=== PATIENT | female | born 1930 | race Hispanic/Latino ===

== ENCOUNTER 2016-12-24 01:52 | Inpatient (IN) | payer MEDICARE, MEDICAID ==
[2016-12-24 01:53] VITALS: BMI 22.1
[2016-12-24] MEDS ORDERED: Albuterol-Ipratrop 3 mg / 0.5 (3 ml) UD ONE (02:12)
[2016-12-24] MEDS ORDERED: methylPREDNISolone 125 MG in Sodium Chloride 0.9% 50 ML IV STA (02:13)
[2016-12-24] MEDS ORDERED: Albuterol-Ipratrop 3 mg / 0.5 (3 ml) UD INH STA ×3 (02:13→02:15)
[2016-12-24] MEDS ORDERED: Magnesium Sulfate 2 gm/50 ml 2 GM/50 ML BAG IV STA (02:14)
[2016-12-24 02:34] LABS: BASO # 0.1 K/uL (0.0-0.2); BASO % 0.5 % (0.0-2.0); EOS # 0.3 K/uL (0.0-0.7); EOS % 2.5 % (0.0-4.0); HEMOGLOBIN 12.8 g/dL (12.0-16.0); LYMPH % 17.7 % (20.0-40.0); MEAN CELL VOLUME 81.7 fl (81.0-99.0); MEAN CORPUSCULAR HEMOGLOBIN 25.6 pg (27.0-31.0); MEAN CORPUSCULAR HGB CONC 31.4 g/dL (33.0-37.0); MEAN PLATELET VOLUME 7.8 fl (7.2-11.7); MONO % 8.8 % (0.0-10.0); NEUT % 70.5 % (50.0-75.0); RBC 4.98 Mil/uL (3.80-5.20); WHITE BLOOD COUNT 11.3 K/uL (4.8-10.8)
[2016-12-24 02:44] LABS: ALB/GLOB RATIO 1.4 (1.0-2.1); ALBUMIN 4.2 g/dL (3.5-5.0); CALCIUM 9.9 mg/dL (8.4-10.2)
[2016-12-24 02:56] LABS: TROPONIN I 0.023 ng/mL (0.00-0.120)
[2016-12-24] MEDS ORDERED: Nitroglycerin 2% 15 INCH/30 GM TUBE TOP STA (03:05)
--- NOTE | 2016-12-24 03:20 | ED PDOC ---
HPI: SOB/CHF/COPD Time Seen by Provider: 12/24/16 01:59 Chief Complaint (Nursing): Respiratory Distress Chief Complaint (Provider): SOB History Per: Patient History/Exam Limitations: no limitations Onset/Duration Of Symptoms: Hrs (x1), Sudden Onset Current Symptoms Are (Timing): Still Present Associated Symptoms: denies: Fever, Bloody Cough Similar Symptoms Previously: Previous COPD exacerbation episodes Additional Complaint(s): 86 year old female presents to ED with complaints of SOB and chest pain x1 hour and has a past medical history of COPD, HTN, CHF, CAD, and AFIB. Describes the pain as a tightness, and notes that her symptoms were sudden onset. (-) fever, nausea, vomiting, or diarrhea. (+) dry cough and wheezing. Confirms that her symptoms are consistent with previous episodes of COPD exacerbation. PCP: Marty Bettencourt Past Medical History Reviewed: Historical Data, Nursing Documentation, Vital Signs Vital Signs: Last Vital Signs Temp 98.9 F 12/24/16 04:00 Pulse 82 12/24/16 04:31 Resp 21 12/24/16 04:00 BP 144/82 12/24/16 04:00 Pulse Ox 100 12/24/16 04:31 - Medical History PMH: Anemia, Anxiety, Arthritis, Atrial Fibrillation, CAD, Cardia Arrhythmia, CHF, COPD, Diverticulitis, Gastritis, HTN, Hypercholesterolemia, Osteoporosis, Pneumonia, Chronic Kidney Disease (CKD stage 3) Denies: No Chronic Diseases, Asthma, Bronchitis, Emphysema, HIV, Hypothyroidism, Mitral Valve Prolapse, Peripheral Edema, Pulmonary Embolism, Rheumatoid Arthritis, Sleep Apnea - Surgical History Surgical History: Appendectomy Denies: Pacemaker - Family History Family History: States: Unknown Family Hx - Social History Current smoker - smoking cessation education provided: No Ex-Smoker (has not smoked in the last 12 months): No Alcohol: None Drugs: Denies - Home Medications Home Medications: Ambulatory Orders Medication Instructions Recorded Acetaminophen with Codeine 1 tab PO Q4H PRN 07/30/16 [Tylenol with Codeine #3 Tablet] Albuterol Sulfate [Proair Hfa] 2 puff IH Q4H PRN 07/30/16 Alprazolam [Xanax] 0.5 mg PO TID 07/30/16 Aspirin [Ecotrin] 81 mg PO DAILY 07/30/16 Bisacodyl [Dulcolax] 10 mg PO HS 07/30/16 Calcitonin,Rogers,Synthetic 1 spray KRISSY DAILY 07/30/16 [Calcitonin-Rogers] Dicyclomine [Bentyl] 20 mg PO TID #30 tab 07/30/16 Digoxin [Digitek] 125 mcg PO DAILY 07/30/16 Docusate Sodium [Dulcolax Stool 100 mg PO DAILY #10 capsule 07/30/16 Softener] Docusate [Colace] 100 mg PO BID 07/30/16 Fluticasone Propionate [Flonase] 2 spray KRISSY DAILY 07/30/16 Gluc/Bon-MSM#1/C/Александр/Juan Jose/Bor 1 cap PO DAILY 07/30/16 [Osteo Bi-Flex Caplet] Isosorbide Mononitrate [Imdur] 60 mg PO DAILY 07/30/16 Levalbuterol [Xopenex] 0.63 mg IH Q8H PRN 07/30/16 Metoprolol Succinate [Toprol XL] 25 mg PO DAILY 07/30/16 Ondansetron [Zofran Tab] 4 mg PO DAILY PRN 07/30/16 Simethicone [Gas-X Ultra Strength] 180 mg PO BID #30 capsule 07/30/16 Tiotropium [Spiriva] 18 mcg IH DAILY 07/30/16 amLODIPine [Norvasc] 10 mg PO DAILY 07/30/16 hydroCHLOROthiazide [Hydrodiuril] 25 mg PO DAILY 07/30/16 traMADol [Ultram] 50 mg PO Q8H PRN 07/30/16 - Allergies Allergies/Adverse Reactions: Allergies Allergy/AdvReac Type Severity Reaction Status Date / Time No Known Allergies Allergy Verified 07/30/16 16:17 Curb-65 Severity Score - CURB-65 Severity Score Confusion: No Respiratory Rate greater than/equal to 30: No Systolic BP <90 or Diastolic BP less than/equal 60mmHg: No Age >64: Yes Curb-65 Score: 1 Percentage 30-day mortality: 2.7% Wells Criteria for PE - Wells Criteria for Pulmonary Embolism Clinical Signs and Symptoms of DVT: No P.E is #1 Diagnosis, or Equally Likely: No Heart Rate >100: No Immobilization at least 3 days;Surgery previous 4 weeks: No Previous, objectively diagnosed PE or DVT: No Hemoptysis: No Malignancy w/treatment within 6 months, or palliative: No Total Score: 0 Review of Systems ROS Statement: Except As Marked, All Systems Reviewed And Found Negative Constitutional: Negative for: Fever Cardiovascular: Positive for: Chest Pain Respiratory: Positive for: Cough (Dry), Shortness of Breath, Wheezing Gastrointestinal: Negative for: Nausea, Vomiting, Diarrhea Physical Exam - Reviewed Nursing Documentation Reviewed: Yes Vital Signs Reviewed: Yes - Physical Exam Appears: Positive for: Non-toxic, In Acute Distress (moderate distress) Head Exam: Positive for: ATRAUMATIC Skin: Positive for: Normal Color, Warm, Dry Eye Exam: Positive for: Normal appearance ENT: Positive for: Normal ENT Inspection Neck: Positive for: Normal, Painless ROM, Supple Cardiovascular/Chest: Positive for: Regular Rate, Rhythm. Negative for: Murmur Respiratory: Positive for: Decreased Breath Sounds (bilateral decreased air entry), Rhonchi, Respiratory Distress (moderate respiratory distress), Other ( Tachypnic). Negative for: Normal Breath Sounds Gastrointestinal/Abdominal: Positive for: Normal Exam, Soft. Negative for: Tenderness Back: Positive for: Normal Inspection Extremity: Positive for: Normal ROM. Negative for: Deformity Neurologic/Psych: Positive for: Alert, Oriented. Negative for: Motor/Sensory Deficits - Laboratory Results Result Diagrams: 12/24/16 02:28 12/24/16 02:28 - ECG ECG: Positive for: Interpreted By Me, Viewed By Me ECG Rhythm: Positive for: Atrial Fibrillation, Nonspecific Changes (nonspecific ST and T wave abnormalities) Rate: 82 O2 Sat by Pulse Oximetry: 100 (On 2L O2) Pulse Ox Interpretation: Normal - Radiology X-Ray: Interpreted by Me, Viewed By Me X-Ray Interpretation: Cardiomegaly, Other (Mild pulmonary vascular congestion) - Critical Care Total Time (In Min): 30 Medical Decision Making Medical Decision Makin Initial impression: SOB and dyspnea in setting of known COPD Initial plan: * EKG * Labs * Digoxin * Trop I * CXR * Duonebs 3mL INH x3 * Magnesium sulfate 2gm in 50mL IV * Solumedrol 125 mg IV * BCx * Peak flow pre/post Tx x3 * UA 0320 * ASA 324mg PO * Lasix 40mg IV * Nitro-Bid 2% 1 inch TOP Patient shows mild improvement in symptoms. CXR: cardiomegaly with mild pulmonary vascular congestion Labs: significant for pro BNP Patient will be admitted as an inpatient in TELE under Dr. Rhoades, who is the hospitalist covering for PCP Dr. Gonzalez. Admitted for COPD and CHF exacerbation and chest pain. Scribe Attestation: Documented by Usha Prado acting as a scribe for Marcel Arredondo MD. Scribe Attestation: All medical record entries made by the Scribe were at my direction and personally dictated by me. I have reviewed the chart and agree that the record accurately reflects my personal performance of the history, physical exam, medical decision making, and the department course for this patient. I have also personally directed, reviewed, and agree with the discharge instructions and disposition. Disposition - Clinical Impression Clinical Impression: Acute respiratory distress, COPD exacerbation, CHF (congestive heart failure) - Patient ED Disposition Is Patient to be Admitted: Yes Discussed With : Jung Rhoades Doctor Will See Patient In The: Hospital - Disposition Disposition Time: 03:12 Condition: IMPROVED - Pt Status Changed To: Hospital Disposition Of: Inpatient - Admit Certification Admit to Inpatient:: After my assessment, the patient will require hospitalization for at least two midnights. This is because of the severity of symptoms shown, intensity of services needed, and/or the medical risk in this patient being treated as an outpatient.
--- NOTE | 2016-12-24 04:01 | CP.PCM.HP ---
History of Present Illness - History of Present Illness History of Present Illness: PCP: Dr Gonzalez Ginner: Dr Bettencourt Returned Item Clerk Dr Vasquez Chief Complaint: SOB HPI: 86 years old female with hx of A fib, HTN, CHF, COPD on home Oxygen comes with one hour of worsening SOB associated with a sudden tightness type of left chest pain radiating to the left shoulder at rest. She refers nonproductive cough with wheezes. no fever, nausea, vomits, diarrhea. PMH: Anemia, Anxiety, Arthritis, A Fib, CAD, Cardia Arrhythmia, CHF, COPD, Diverticulitis, Gastritis, HTN, HLD, Osteoporosis, Pneumonia, Chronic Kidney Disease (CKD stage 3) PSH: Appendectomy SH: Former smoker; No illegal drug use; No alcohol; Allergies: NKDA Present on Admission - Present on Admission Any Indicators Present on Admission: No History of DVT/PE: No History of Uncontrolled Diabetes: No Urinary Catheter: No Decubitus Ulcer Present: No Review of Systems - Constitutional Constitutional: Headache. absent: Anorexia, Chills, Fatigue, Fever - EENT Eyes: Requires Corrective Lenses. absent: Diplopia, Floaters, Sees Flashes Ears: absent: Decreased Hearing, Ear Discharge, Ear Pain, Tinnitus Nose/Mouth/Throat: absent: Epistaxis, Nasal Congestion, Nasal Discharge, Sinus Pressure, Dental Pain - Cardiovascular Cardiovascular: Chest Pain, Dyspnea. absent: Edema, Lightheadedness, Orthopnea , Palpitations - Respiratory Respiratory: Cough, Dyspnea, Wheezing - Gastrointestinal Gastrointestinal: absent: Abdominal Pain, Constipation, Diarrhea - Genitourinary Genitourinary: absent: Dysuria, Flank Pain, Hematuria, Urinary Frequency - Musculoskeletal Musculoskeletal: Arthralgias. absent: Back Pain, Numbness - Integumentary Integumentary: absent: Pruritus, Rash, Skin Ulcer, Sores, Striae, Swelling - Neurological Neurological: Headaches. absent: Confusion, Dizziness, Focal Weakness, Paresthesias - Psychiatric Psychiatric: absent: Anxiety, Depression, Panic Attacks - Endocrine Endocrine: absent: Palpitations, Polydipsia, Polyphagia, Polyuria - Hematologic/Lymphatic Hematologic: absent: Easy Bleeding, Easy Bruising Past Patient History - Infectious Disease Hx of Infectious Diseases: None - Tetanus Immunizations Tetanus Immunization: Unknown - Past Medical History & Family History Past Medical History?: Yes - Past Social History Smoking Status: Former Smoker Chewing Tobacco Use: No Cigar Use: No Alcohol: None Drugs: Denies Home Situation {Lives}: With Family - CARDIAC Hx Atrial Fibrillation: Yes Hx Cardia Arrhythmia: Yes Hx Congestive Heart Failure: Yes Hx Hypercholesterolemia: Yes Hx Hypertension: Yes Hx Mitral Valve Prolapse: No Hx Pacemaker: No Hx Peripheral Edema: No - PULMONARY Hx Asthma: No Hx Bronchitis: No Hx Chronic Obstructive Pulmonary Disease (COPD): Yes Hx Emphysema: No Hx Pneumonia: Yes Hx Pulmonary Embolism: No Hx Sleep Apnea: No - NEUROLOGICAL Hx Neurological Disorder: No - HEENT Hx HEENT Problems: Yes Hx Cataracts: Yes - RENAL Hx Chronic Kidney Disease: Yes (CKD stage 3) - ENDOCRINE/METABOLIC Hx Hypothyroidism: No - HEMATOLOGICAL/ONCOLOGICAL Hx Anemia: Yes Hx Human Immunodeficiency Virus (HIV): No - INTEGUMENTARY Hx Dermatological Problems: No - MUSCULOSKELETAL/RHEUMATOLOGICAL Hx Arthritis: Yes Hx Osteoporosis: Yes Hx Rheumatoid Arthritis: No - GASTROINTESTINAL Hx Diverticulitis: Yes Hx Gastritis: Yes - GENITOURINARY/GYNECOLOGICAL Hx Genitourinary Disorders: Yes - PSYCHIATRIC Hx Anxiety: Yes - SURGICAL HISTORY Hx Appendectomy: Yes - ANESTHESIA Hx Anesthesia: Yes Hx Anesthesia Reactions: No Hx Malignant Hyperthermia: No Meds Allergies/Adverse Reactions: Allergies Allergy/AdvReac Type Severity Reaction Status Date / Time No Known Allergies Allergy Verified 07/30/16 16:17 Physical Exam - Constitutional Appears: In Acute Distress - Head Exam Head Exam: ATRAUMATIC, NORMAL INSPECTION, NORMOCEPHALIC - Eye Exam Eye Exam: EOMI, Normal appearance Pupil Exam: NORMAL ACCOMODATION, PERRL - ENT Exam ENT Exam: Mucous Membranes Moist, Normal Exam, Normal External Ear Exam, Normal Oropharynx - Neck Exam Neck exam: Positive for: Normal Inspection, Tenderness. Negative for: Full Rom , Lymphadenopathy - Respiratory Exam Respiratory Exam: Rales. absent: Rhonchi, Wheezes Additional comments: Mild inspiratory rales at both bases - Cardiovascular Exam Cardiovascular Exam: Irregular Rhythm, +S1, +S2. absent: Gallop, JVD - GI/Abdominal Exam GI & Abdominal Exam: Normal Bowel Sounds, Soft. absent: Mass, Organomegaly - Rectal Exam Rectal Exam: Deferred - Extremities Exam Extremities exam: Positive for: normal inspection Additional comments: Pain to the left shoulder on flexion and rotation. - Back Exam Back exam: NORMAL INSPECTION. absent: CVA tenderness (L), CVA tenderness (R) - Neurological Exam Neurological exam: Alert, CN II-XII Intact, Oriented x3, Reflexes Normal - Psychiatric Exam Psychiatric exam: Normal Affect, Normal Mood - Skin Skin Exam: Dry, Intact, Normal Color, Warm Results - Vital Signs Recent Vital Signs: Last Vital Signs Temp 99.0 F 12/24/16 02:02 Pulse 85 12/24/16 02:02 Resp 25 H 12/24/16 03:03 BP 129/61 12/24/16 03:26 Pulse Ox 100 12/24/16 03:46 - Labs Result Diagrams: 12/24/16 02:28 12/24/16 02:28 - EKG Data EKG comments: A Fib 82/min - Imaging and Cardiology Chest x-ray Status: Image reviewed by me Additional comment: No infiltrate Assessment & Plan - Assessment and Plan (Free Text) Assessment: #. COPD Exacerbation #. CHF #. Chest Pain #. Arthritis #. A Fib #. GERD #. Leukocytosis Plan: 86 years old female with hx of A fib, HTN, CHF, COPD on home Oxygen comes with one hour of worsening SOB associated with a sudden tightness type of left chest pain radiating to the left shoulder at rest. She refers nonproductive cough with wheezes. #. Acute on chronicCOPD Exacerbation - Consult Dr Sweeney - Aminata-Medrol given in ED - Solumedrol 60mg IV Q6hrs - Duoneb Q4hrs - O2 at 2L/min via N/c - Rocephin emperic #. Chronic CHF Systolic and Diastolic dysfunction - Consult Dr vasquez - Lasix - Metoprolol -isosorbide Mononitrate #. Chest Pain - Cardiology on consult - Serial Troponin - Serial EKG - ASA - Nitroglycerine #. Arthritis to the left shoulder - tramadol #. A Fib rate controlled - Metoprolol - digoxin #. Over grown toe nails - Consult Podiatry #. GERD - Pepcid #. DVT Prophylaxis with Lovenox #. Code Status Full - Date & Time Date: 12/24/16 Time: 04:01
[2016-12-24] MEDS: Albuterol-Ipratrop 3 mg / 0.5 (3 ml) UD INH SCH ×2 (07:47→11:30)
[2016-12-24] MEDS ORDERED: Simethicone 80 mg Chewtab PO PRN (09:00)
--- NOTE | 2016-12-24 09:29 | RAD ---
HISTORY: Chest pain COMPARISON: No prior. FINDINGS: LUNGS: The lungs are hyperinflated and there is peribronchial thickening with chronic changes in both lungs. No focal consolidation. PLEURA: No significant pleural effusion identified, no pneumothorax apparent. CARDIOVASCULAR: Normal. OSSEOUS STRUCTURES: No significant abnormalities. VISUALIZED UPPER ABDOMEN: Normal. OTHER FINDINGS: None. IMPRESSION: No active pulmonary disease. COPD.
--- NOTE | 2016-12-24 09:31 | CP.PCM.CON ---
History of Present Illness - History of Present Illness History of Present Illness: THE PATIENT IS AN 86 YEAR OLD FEMALE WITH A HISTORY OF COPD WITH A HEAVY CIGARETTE SMOKING HISTORY, CAD, CARDIOMYOPATHY WITH A LVEF OF ~ 20% WITH CHF IN THE PAST, CHRONIC ATRIAL FIBRILLATION, SEVERE CHEST WALL SYNDROME, HYPERTENSION , HYPERLIPIDEMIA AND STAGE 3 CRF. SHE STATES THAT SHE WAS SOB AND FELT WEAK FOR A FEW DAYS APPLE THINNER BUT DENIES FEVERS OR CHILLS OR PRODUCTIVE SPUTUM. SHE HAD ATYPICAL CHEST PAIN LAST EVENING AND WENT TO THE ER AND WAS FOUND TO HAVE COPD EXACERBATION AND BELIEVE TO HAVE CHF ALSO SO SHE WAS ADMITTED. CARDIOLOGY WAS ASKED TO SEE AND FOLLOW HER. SHE DENIES ANY TYPICAL CHEST PAIN. Past Patient History - Infectious Disease Hx of Infectious Diseases: None - Tetanus Immunizations Tetanus Immunization: Unknown - Past Medical History & Family History Past Medical History?: Yes - Past Social History Smoking Status: Former Smoker Chewing Tobacco Use: No Cigar Use: No Alcohol: None Drugs: Denies Home Situation {Lives}: With Family - CARDIAC Hx Atrial Fibrillation: Yes Hx Cardia Arrhythmia: Yes Hx Congestive Heart Failure: Yes Hx Hypercholesterolemia: Yes Hx Hypertension: Yes Hx Mitral Valve Prolapse: No Hx Pacemaker: No Hx Peripheral Edema: No - PULMONARY Hx Asthma: No Hx Bronchitis: No Hx Chronic Obstructive Pulmonary Disease (COPD): Yes Hx Emphysema: No Hx Pneumonia: Yes Hx Pulmonary Embolism: No Hx Sleep Apnea: No - NEUROLOGICAL Hx Neurological Disorder: No - HEENT Hx HEENT Problems: Yes Hx Cataracts: Yes - RENAL Hx Chronic Kidney Disease: Yes (CKD stage 3) - ENDOCRINE/METABOLIC Hx Hypothyroidism: No - HEMATOLOGICAL/ONCOLOGICAL Hx Anemia: Yes Hx Human Immunodeficiency Virus (HIV): No - INTEGUMENTARY Hx Dermatological Problems: No - MUSCULOSKELETAL/RHEUMATOLOGICAL Hx Arthritis: Yes Hx Osteoporosis: Yes Hx Rheumatoid Arthritis: No - GASTROINTESTINAL Hx Diverticulitis: Yes Hx Gastritis: Yes - GENITOURINARY/GYNECOLOGICAL Hx Genitourinary Disorders: Yes - PSYCHIATRIC Hx Anxiety: Yes - SURGICAL HISTORY Hx Appendectomy: Yes - ANESTHESIA Hx Anesthesia: Yes Hx Anesthesia Reactions: No Hx Malignant Hyperthermia: No Meds Allergies/Adverse Reactions: Allergies Allergy/AdvReac Type Severity Reaction Status Date / Time No Known Allergies Allergy Verified 07/30/16 16:17 - Medications Medications: Current Medications Acetaminophen/Codeine Phosphate (Tylenol/Codeine 300 Mg/30 Mg) 1 tab PO Q4H PRN PRN Reason: Pain, moderate (4-7) Albuterol/Ipratropium (Duoneb 3 Mg/0.5 Mg (3 Ml) Ud) 3 ml INH Q4H JAQUI Last Admin: 12/24/16 07:47 Dose: 3 ml Alprazolam (Xanax) 0.5 mg PO TID [facility] Amlodipine Besylate (Norvasc) 10 mg PO DAILY [facility] Aspirin (Ecotrin) 81 mg PO DAILY JAQUI Bisacodyl (Dulcolax) 10 mg PO HS JAQUI Digoxin (Lanoxin) 0.125 mg PO DAILY [facility] Docusate Sodium (Colace) 100 mg PO BID [facility] Enoxaparin Sodium (Lovenox) 40 mg SC DAILY [facility] PRN Reason: Protocol Famotidine (Pepcid) 20 mg PO DAILY [facility] Fluticasone Propionate (Flonase) 2 spr KRISSY DAILY [facility] Furosemide (Lasix) 20 mg IVP BID [facility] Home Med (Simethicone [Gas-X Ultra Strength]) 180 mg PO BID [facility] Methylprednisolone 60 mg/ (Sodium Chloride) 50 mls @ 100 mls/hr IVPB Q6 [facility] Ceftriaxone Sodium 1 gm/ (Sodium Chloride) 100 mls @ 100 mls/hr IVPB DAILY [facility] Isosorbide Mononitrate (Imdur) 60 mg PO DAILY [facility] Metoprolol Succinate (Toprol Xl) 25 mg PO DAILY [facility] Ondansetron HCl (Zofran Tab) 4 mg PO DAILY PRN PRN Reason: Nausea/Vomiting Tramadol HCl (Ultram) 50 mg PO Q8H PRN PRN Reason: Pain, severe (8-10) Last Admin: 12/24/16 05:53 Dose: 50 mg Physical Exam - Respiratory Exam Respiratory Exam: Clear to Auscultation Bilateral - Cardiovascular Exam Cardiovascular Exam: Irregular Rhythm, +S1, +S2 - Extremities Exam Extremities exam: Positive for: normal inspection - Additional Findings Additional findings: EKG ATRIAL FIBRILLATION TROPONIN NORMAL X 2 PBNP 2210 CXR CHRONIC CHANGES(NOT CONGESTION IN MY OPINION) Results - Vital Signs Recent Vital Signs: Last Vital Signs Temp 98.4 F 12/24/16 08:00 Pulse 93 H 12/24/16 08:00 Resp 18 12/24/16 08:00 BP 153/69 H 12/24/16 08:00 Pulse Ox 93 L 12/24/16 08:00 - Labs Result Diagrams: 12/24/16 02:28 07/07/17 02:28 Labs: Laboratory Results - last 24 hr 12/24/16 08:20 Troponin I 0.0270 Assessment & Plan - Assessment and Plan (Free Text) Assessment: COPD EXACERBATION THE PATIENT IS NOT IN CHF IN MY OPINION-HER LUNGS ARE CLEAR, THE CXR SHOWS CHRONIC CHANGES AND THE PBNP IS LOW FOR HER(SHE OFTEN HAS MUCH MORE ELEVATED PBNP LEVELS) CHEST WALL SYNDROME CAD CHRONIC ATRIAL FIBRILLATION HYPERTENSION Plan: CONTINUE O2, METOPROLOL, NITRATES, DIGOXIN, FUROSEMIDE, AMLODIPINE, ASPIRIN, LOVENOX, ANTIBIOTICS, BRONCHODILATORS NOTE: THE PATIENT IS NOT ON CHRONIC ANTICOAGULATION SHE IS A FALL RISK PULMONARY TO SEE
[2016-12-24] MEDS: Enoxaparin 40 mg Syringe SC SCH (09:48)
[2016-12-24] MEDS: Metoprolol Succinate 25 mg XL Tab PO SCH (09:49)
[2016-12-24] MEDS: Digoxin 125 mcg (0.125 mg) Tab PO SCH (09:49)
[2016-12-24] MEDS: Acetaminophen-Codeine 300/30 mg Tab PO PRN ×2 (09:57→22:06)
[2016-12-24] MEDS: methylPREDNISolone 60 MG in Sodium Chloride 0.9% 50 ML IVPB SCH ×4 (10:44→22:10)
--- NOTE | 2016-12-24 14:27 | CP.PCM.CON ---
History of Present Illness - History of Present Illness History of Present Illness: 86 YR OLD FEMALE WHO IS WELL KNOWN TO ME FROM PRIOR ADMISSIONS.SHE IS REFERRED FOR PULMONARY EVALUATION BECAUSE OF CHEST DISCOMFORT AND SHORTNESS OF BREATH X 1 DAY SHE DENIES FEVER/CHILLS HAS MINIMAL SPUTUM PRODUCTION HX OF COPD,CHRONIC ATRIAL FIBRILLATION AND CARDIOMYOPATHY FORMER [employer] Past Patient History - Infectious Disease Hx of Infectious Diseases: None - Tetanus Immunizations Tetanus Immunization: Unknown - Past Medical History & Family History Past Medical History?: Yes - Past Social History Smoking Status: Former Smoker Chewing Tobacco Use: No Cigar Use: No Alcohol: None Drugs: Denies Home Situation {Lives}: With Family - CARDIAC Hx Atrial Fibrillation: Yes Hx Cardia Arrhythmia: Yes Hx Congestive Heart Failure: Yes Hx Hypercholesterolemia: Yes Hx Hypertension: Yes Hx Mitral Valve Prolapse: No Hx Pacemaker: No Hx Peripheral Edema: No - PULMONARY Hx Asthma: No Hx Bronchitis: No Hx Chronic Obstructive Pulmonary Disease (COPD): Yes Hx Emphysema: No Hx Pneumonia: Yes Hx Pulmonary Embolism: No Hx Sleep Apnea: No - NEUROLOGICAL Hx Neurological Disorder: No - HEENT Hx HEENT Problems: Yes Hx Cataracts: Yes - RENAL Hx Chronic Kidney Disease: Yes (CKD stage 3) - ENDOCRINE/METABOLIC Hx Hypothyroidism: No - HEMATOLOGICAL/ONCOLOGICAL Hx Anemia: Yes Hx Human Immunodeficiency Virus (HIV): No - INTEGUMENTARY Hx Dermatological Problems: No - MUSCULOSKELETAL/RHEUMATOLOGICAL Hx Arthritis: Yes Hx Osteoporosis: Yes Hx Rheumatoid Arthritis: No - GASTROINTESTINAL Hx Diverticulitis: Yes Hx Gastritis: Yes - GENITOURINARY/GYNECOLOGICAL Hx Genitourinary Disorders: Yes - PSYCHIATRIC Hx Anxiety: Yes - SURGICAL HISTORY Hx Appendectomy: Yes - ANESTHESIA Hx Anesthesia: Yes Hx Anesthesia Reactions: No Hx Malignant Hyperthermia: No Meds Allergies/Adverse Reactions: Allergies Allergy/AdvReac Type Severity Reaction Status Date / Time No Known Allergies Allergy Verified 07/30/16 16:17 - Medications Medications: Current Medications Acetaminophen/Codeine Phosphate (Tylenol/Codeine 300 Mg/30 Mg) 1 tab PO Q4H PRN PRN Reason: Pain, moderate (4-7) Last Admin: 12/24/16 09:57 Dose: 1 tab Albuterol/Ipratropium (Duoneb 3 Mg/0.5 Mg (3 Ml) Ud) 3 ml INH Q4H JAQUI Last Admin: 12/24/16 11:30 Dose: 3 ml Alprazolam (Xanax) 0.5 mg PO TID [facility] Last Admin: 12/24/16 09:57 Dose: 0.5 mg Amlodipine Besylate (Norvasc) 10 mg PO DAILY [facility] Last Admin: 12/24/16 09:48 Dose: 10 mg Aspirin (Ecotrin) 81 mg PO DAILY [facility] Last Admin: 12/24/16 09:49 Dose: 81 mg Bisacodyl (Dulcolax) 10 mg PO HS [facility] Digoxin (Lanoxin) 0.125 mg PO DAILY [facility] Last Admin: 12/24/16 09:49 Dose: 0.125 mg Docusate Sodium (Colace) 100 mg PO BID [facility] Last Admin: 12/24/16 09:52 Dose: 100 mg Enoxaparin Sodium (Lovenox) 40 mg SC DAILY [facility] PRN Reason: Protocol Last Admin: 12/24/16 09:48 Dose: 40 mg Famotidine (Pepcid) 20 mg PO DAILY [facility] Last Admin: 12/24/16 09:57 Dose: 20 mg Fluticasone Propionate (Flonase) 2 spr KRISSY DAILY [facility] Last Admin: 12/24/16 10:10 Dose: 2 spr Furosemide (Lasix) 20 mg IVP BID [facility] Last Admin: 12/24/16 09:57 Dose: 20 mg Home Med (Simethicone [Gas-X Ultra Strength]) 180 mg PO BID [facility] Methylprednisolone 60 mg/ (Sodium Chloride) 50 mls @ 100 mls/hr IVPB Q6 [facility] Ceftriaxone Sodium 1 gm/ (Sodium Chloride) 100 mls @ 100 mls/hr IVPB DAILY [facility] Isosorbide Mononitrate (Imdur) 60 mg PO DAILY [facility] Last Admin: 12/24/16 09:49 Dose: 60 mg Metoprolol Succinate (Toprol Xl) 25 mg PO DAILY [facility] Last Admin: 12/24/16 09:49 Dose: 25 mg Ondansetron HCl (Zofran Tab) 4 mg PO DAILY PRN PRN Reason: Nausea/Vomiting Last Admin: 12/24/16 09:50 Dose: 4 mg Tramadol HCl (Ultram) 50 mg PO Q8H PRN PRN Reason: Pain, severe (8-10) Last Admin: 12/24/16 05:53 Dose: 50 mg Physical Exam - Constitutional Appears: Chronically Ill - Head Exam Head Exam: ATRAUMATIC, NORMAL INSPECTION, NORMOCEPHALIC - Eye Exam Eye Exam: EOMI, Normal appearance, PERRL Pupil Exam: NORMAL ACCOMODATION, PERRL - ENT Exam ENT Exam: Mucous Membranes Moist, Normal Exam - Neck Exam Neck exam: Positive for: Normal Inspection - Respiratory Exam Respiratory Exam: Prolonged Expiratory Phase, Rales, Rhonchi - Cardiovascular Exam Cardiovascular Exam: Irregular Rhythm - GI/Abdominal Exam GI & Abdominal Exam: Normal Bowel Sounds, Soft. absent: Tenderness - Rectal Exam Rectal Exam: NORMAL INSPECTION - Extremities Exam Extremities exam: Positive for: normal inspection - Back Exam Back exam: NORMAL INSPECTION - Neurological Exam Neurological exam: Alert, CN II-XII Intact, Normal Gait, Oriented x3, Reflexes Normal - Psychiatric Exam Psychiatric exam: Normal Affect, Normal Mood - Skin Skin Exam: Dry, Intact, Normal Color, Warm Results - Vital Signs Recent Vital Signs: Last Vital Signs Temp 97.7 F 12/24/16 12:00 Pulse 76 12/24/16 12:00 Resp 18 12/24/16 12:00 BP 97/57 L 12/24/16 12:00 Pulse Ox 100 12/24/16 12:00 - Labs Result Diagrams: 12/24/16 02:28 12/24/16 02:28 Labs: Laboratory Results - last 24 hr 12/24/16 08:20 Troponin I 0.0270 Assessment & Plan - Assessment and Plan (Free Text) Assessment: ACUTE EXAC OF COPD CHEST PAIN ARRYTHMIAS Plan: AEROSOLIZED BRONCHODILATORS O2 RX IV STEROIDS MONITOR IN TELE WILL FOLLOW WITH YOU
[2016-12-24] MEDS ORDERED: Sodium Chloride 3% for Inhalation 4 ML VIAL.NEB IH PRN (14:34)
[2016-12-24] MEDS ORDERED: Levalbuterol 1.25 MG/3 ML Inhal Soln UD INH PRN (14:35)
[2016-12-24] MEDS: Lidocaine 5% Patch TD SCH (15:52)
--- NOTE | 2016-12-24 18:24 | CARD ---
APPROVED REPORT EKG Measurement Heart [id number] <Conclusion> Atrial fibrillation with premature ventricular or aberrantly conducted complexes Left axis deviation Nonspecific intraventricular block Abnormal QRS-T angle, consider primary T wave abnormality Abnormal ECG
[2016-12-24] MEDS: Bisacodyl 5mg EC Tab PO SCH (22:11)
[2016-12-25] MEDS: Acetaminophen-Codeine 300/30 mg Tab PO PRN ×2 (02:15→09:01)
[2016-12-25] MEDS: methylPREDNISolone 60 MG in Sodium Chloride 0.9% 50 ML IVPB SCH ×4 (03:56→21:14)
[2016-12-25 07:54] LABS: HEMOGLOBIN 12.1 g/dL (12.0-16.0); MEAN CORPUSCULAR HEMOGLOBIN 25.7 pg (27.0-31.0); MEAN CORPUSCULAR HGB CONC 31.4 g/dL (33.0-37.0); RBC 4.72 Mil/uL (3.80-5.20); RED CELL DISTRIBUTION WIDTH 15.6 % (11.5-14.5); WHITE BLOOD COUNT 11.2 K/uL (4.8-10.8)
[2016-12-25 08:16] LABS: CALCIUM 9.5 mg/dL (8.4-10.2)
[2016-12-25] MEDS: Digoxin 125 mcg (0.125 mg) Tab PO SCH (08:54)
[2016-12-25] MEDS: Metoprolol Succinate 25 mg XL Tab PO SCH (08:54)
[2016-12-25] MEDS: Enoxaparin 40 mg Syringe SC SCH (08:56)
[2016-12-25] MEDS: Lidocaine 5% Patch TD SCH (08:56)
--- NOTE | 2016-12-25 10:00 | CP.PCM.PN ---
Subjective - Date & Time of Evaluation Date of Evaluation: 12/25/16 Time of Evaluation: 09:59 - Subjective Subjective: C/O INABILITY TO SLEEP BECAUSE OF LACK OF CPAP FEELS WEAK Objective - Vital Signs/Intake and Output Vital Signs (last 24 hours): Temp Pulse Resp BP Pulse Ox 98.5 F 75 18 135/57 L 99 12/25/16 08:00 12/25/16 08:54 12/25/16 08:00 12/25/16 09:02 12/25/16 08:00 - Medications Medications: Current Medications Acetaminophen/Codeine Phosphate (Tylenol/Codeine 300 Mg/30 Mg) 1 tab PO Q4H PRN PRN Reason: Pain, moderate (4-7) Last Admin: 12/25/16 09:01 Dose: 1 tab Alprazolam (Xanax) 0.5 mg PO TID [facility] Last Admin: 12/25/16 09:01 Dose: 0.5 mg Amlodipine Besylate (Norvasc) 10 mg PO DAILY [facility] Last Admin: 12/25/16 08:51 Dose: 10 mg Aspirin (Ecotrin) 81 mg PO DAILY [facility] Last Admin: 12/25/16 08:53 Dose: 81 mg Bisacodyl (Dulcolax) 10 mg PO HS [facility] Last Admin: 12/24/16 22:11 Dose: 10 mg Digoxin (Lanoxin) 0.125 mg PO DAILY [facility] Last Admin: 12/25/16 08:54 Dose: 0.125 mg Docusate Sodium (Colace) 100 mg PO BID [facility] Last Admin: 12/25/16 08:53 Dose: 100 mg Enoxaparin Sodium (Lovenox) 40 mg SC DAILY [facility] PRN Reason: Protocol Last Admin: 12/25/16 08:56 Dose: 40 mg Famotidine (Pepcid) 20 mg PO DAILY [facility] Last Admin: 12/25/16 08:54 Dose: 20 mg Fluticasone Propionate (Flonase) 2 spr KRISSY DAILY [facility] Last Admin: 12/25/16 08:55 Dose: 2 spr Furosemide (Lasix) 20 mg IVP BID [facility] Last Admin: 12/25/16 09:02 Dose: 20 mg Methylprednisolone 60 mg/ (Sodium Chloride) 50 mls @ 100 mls/hr IVPB Q6 [facility] Last Admin: 12/25/16 09:02 Dose: 100 mls/hr Ceftriaxone Sodium 1 gm/ (Sodium Chloride) 100 mls @ 100 mls/hr IVPB DAILY [facility] Last Admin: 12/25/16 08:55 Dose: 100 mls/hr Isosorbide Mononitrate (Imdur) 60 mg PO DAILY [facility] Last Admin: 12/25/16 08:56 Dose: 60 mg Lactulose (Enulose) 20 gm PO DAILY PRN PRN Reason: Constipation Levalbuterol HCl (Xopenex) 1.25 mg INH RQ8 PRN PRN Reason: Shortness of Breath Lidocaine (Lidoderm) 1 ea TD DAILY [facility] Last Admin: 12/25/16 08:56 Dose: 1 ea Metoprolol Succinate (Toprol Xl) 25 mg PO DAILY [facility] Last Admin: 12/25/16 08:54 Dose: 25 mg Ondansetron HCl (Zofran Inj) 4 mg IVP Q6 PRN PRN Reason: Nausea/Vomiting Simethicone (Mylicon Chew Tab) 80 mg PO BID PRN PRN Reason: Flatulence Tramadol HCl (Ultram) 50 mg PO Q8H PRN PRN Reason: Pain, severe (8-10) Last Admin: 12/25/16 00:00 Dose: 50 mg - Labs Labs: 12/25/16 06:30 12/25/16 06:30 - Constitutional Appears: Chronically Ill - Head Exam Head Exam: ATRAUMATIC, NORMAL INSPECTION, NORMOCEPHALIC - Eye Exam Eye Exam: EOMI, Normal appearance, PERRL Pupil Exam: NORMAL ACCOMODATION, PERRL - ENT Exam ENT Exam: Mucous Membranes Moist, Normal Exam - Neck Exam Neck Exam: Full ROM, Normal Inspection. absent: Lymphadenopathy - Respiratory Exam Respiratory Exam: Decreased Breath Sounds, NORMAL BREATHING PATTERN - Cardiovascular Exam Cardiovascular Exam: REGULAR RHYTHM, +S1, +S2. absent: Murmur - GI/Abdominal Exam GI & Abdominal Exam: Soft, Normal Bowel Sounds. absent: Tenderness - Rectal Exam Rectal Exam: NORMAL INSPECTION - Extremities Exam Extremities Exam: Full ROM, Normal Capillary Refill, Normal Inspection. absent : Joint Swelling, Pedal Edema - Back Exam Back Exam: NORMAL INSPECTION - Neurological Exam Neurological Exam: Alert, Awake, CN II-XII Intact, Normal Gait, Oriented x3 - Psychiatric Exam Psychiatric exam: Normal Affect, Normal Mood - Skin Skin Exam: Dry, Intact, Normal Color, Warm Assessment and Plan - Assessment and Plan (Free Text) Assessment: COPD EXAC Plan: CPAP ORDERED
[2016-12-25] MEDS ORDERED: Simethicone 80 mg Chewtab PO PRN (10:15)
--- NOTE | 2016-12-25 15:16 | CP.PCM.PN ---
Subjective - Date & Time of Evaluation Date of Evaluation: 12/25/16 Time of Evaluation: 13:30 - Subjective Subjective: NO CHEST PAIN STILL SOB Objective - Vital Signs/Intake and Output Vital Signs (last 24 hours): Temp Pulse Resp BP Pulse Ox 97.4 F L 73 18 109/63 98 12/25/16 12:00 12/25/16 12:00 12/25/16 12:00 12/25/16 12:00 12/25/16 12:00 - Medications Medications: Current Medications Acetaminophen/Codeine Phosphate (Tylenol/Codeine 300 Mg/30 Mg) 1 tab PO Q4H PRN PRN Reason: Pain, moderate (4-7) Last Admin: 12/25/16 09:01 Dose: 1 tab Alprazolam (Xanax) 0.5 mg PO TID [facility] Last Admin: 12/25/16 12:22 Dose: 0.5 mg Amlodipine Besylate (Norvasc) 10 mg PO DAILY [facility] Last Admin: 12/25/16 08:51 Dose: 10 mg Aspirin (Ecotrin) 81 mg PO DAILY [facility] Last Admin: 12/25/16 08:53 Dose: 81 mg Bisacodyl (Dulcolax) 10 mg PO HS [facility] Last Admin: 12/24/16 22:11 Dose: 10 mg Digoxin (Lanoxin) 0.125 mg PO DAILY [facility] Last Admin: 12/25/16 08:54 Dose: 0.125 mg Docusate Sodium (Colace) 100 mg PO BID [facility] Last Admin: 12/25/16 08:53 Dose: 100 mg Enoxaparin Sodium (Lovenox) 40 mg SC DAILY [facility] PRN Reason: Protocol Last Admin: 12/25/16 08:56 Dose: 40 mg Famotidine (Pepcid) 20 mg PO DAILY [facility] Last Admin: 12/25/16 08:54 Dose: 20 mg Fluticasone Propionate (Flonase) 2 spr KRISSY DAILY [facility] Last Admin: 12/25/16 08:55 Dose: 2 spr Furosemide (Lasix) 20 mg IVP BID [facility] Last Admin: 12/25/16 09:02 Dose: 20 mg Methylprednisolone 60 mg/ (Sodium Chloride) 50 mls @ 100 mls/hr IVPB Q6 [facility] Last Admin: 12/25/16 09:02 Dose: 100 mls/hr Ceftriaxone Sodium 1 gm/ (Sodium Chloride) 100 mls @ 100 mls/hr IVPB DAILY [facility] Last Admin: 12/25/16 08:55 Dose: 100 mls/hr Isosorbide Mononitrate (Imdur) 60 mg PO DAILY [facility] Last Admin: 12/25/16 08:56 Dose: 60 mg Lactulose (Enulose) 20 gm PO DAILY PRN PRN Reason: Constipation Levalbuterol HCl (Xopenex) 1.25 mg INH RQ8 PRN PRN Reason: Shortness of Breath Lidocaine (Lidoderm) 1 ea TD DAILY [facility] Last Admin: 12/25/16 08:56 Dose: 1 ea Metoprolol Succinate (Toprol Xl) 25 mg PO DAILY [facility] Last Admin: 12/25/16 08:54 Dose: 25 mg Ondansetron HCl (Zofran Inj) 4 mg IVP Q6 PRN PRN Reason: Nausea/Vomiting Simethicone (Mylicon Chew Tab) 80 mg PO BID PRN PRN Reason: Flatulence Tramadol HCl (Ultram) 50 mg PO Q8H PRN PRN Reason: Pain, severe (8-10) Last Admin: 12/25/16 12:28 Dose: 50 mg - Labs Labs: 12/25/16 06:30 12/25/16 06:30 - Respiratory Exam Respiratory Exam: Decreased Breath Sounds - Cardiovascular Exam Cardiovascular Exam: Irregular Rhythm, +S1, +S2 - Extremities Exam Extremities Exam: Normal Inspection - Additional Findings Additional findings: 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 ANTIBIOTICS, STEROIDS, BRONCHODILATORS CPAP ORDERED BY PULMONARY
--- NOTE | 2016-12-25 15:41 | CP.PCM.PN ---
Subjective - Date & Time of Evaluation Date of Evaluation: 12/25/16 Time of Evaluation: 11:30 - Subjective Subjective: Patient seen and examined bedside. Feeling weak and tired. Was not able to sleep last night because did not have her CPAP machine.States that all her body hurts.Still with dyspnea at rest and prolonged expiratory phase while on 2 L O2 via NC complains of headache Objective - Vital Signs/Intake and Output Vital Signs (last 24 hours): Temp Pulse Resp BP Pulse Ox 97.4 F L 73 18 109/63 98 12/25/16 12:00 12/25/16 12:00 12/25/16 12:00 12/25/16 12:00 12/25/16 12:00 - Medications Medications: Current Medications Acetaminophen/Codeine Phosphate (Tylenol/Codeine 300 Mg/30 Mg) 1 tab PO Q4H PRN PRN Reason: Pain, moderate (4-7) Last Admin: 12/25/16 09:01 Dose: 1 tab Alprazolam (Xanax) 0.5 mg PO TID [facility] Last Admin: 12/25/16 12:22 Dose: 0.5 mg Amlodipine Besylate (Norvasc) 10 mg PO DAILY [facility] Last Admin: 12/25/16 08:51 Dose: 10 mg Aspirin (Ecotrin) 81 mg PO DAILY [facility] Last Admin: 12/25/16 08:53 Dose: 81 mg Bisacodyl (Dulcolax) 10 mg PO HS [facility] Last Admin: 12/24/16 22:11 Dose: 10 mg Digoxin (Lanoxin) 0.125 mg PO DAILY [facility] Last Admin: 12/25/16 08:54 Dose: 0.125 mg Docusate Sodium (Colace) 100 mg PO BID [facility] Last Admin: 12/25/16 08:53 Dose: 100 mg Enoxaparin Sodium (Lovenox) 40 mg SC DAILY [facility] PRN Reason: Protocol Last Admin: 12/25/16 08:56 Dose: 40 mg Famotidine (Pepcid) 20 mg PO DAILY [facility] Last Admin: 12/25/16 08:54 Dose: 20 mg Fluticasone Propionate (Flonase) 2 spr KRISSY DAILY [facility] Last Admin: 12/25/16 08:55 Dose: 2 spr Furosemide (Lasix) 20 mg IVP BID [facility] Last Admin: 12/25/16 09:02 Dose: 20 mg Methylprednisolone 60 mg/ (Sodium Chloride) 50 mls @ 100 mls/hr IVPB Q6 [facility] Last Admin: 12/25/16 09:02 Dose: 100 mls/hr Ceftriaxone Sodium 1 gm/ (Sodium Chloride) 100 mls @ 100 mls/hr IVPB DAILY [facility] Last Admin: 12/25/16 08:55 Dose: 100 mls/hr Isosorbide Mononitrate (Imdur) 60 mg PO DAILY [facility] Last Admin: 12/25/16 08:56 Dose: 60 mg Lactulose (Enulose) 20 gm PO DAILY PRN PRN Reason: Constipation Levalbuterol HCl (Xopenex) 1.25 mg INH RQ8 PRN PRN Reason: Shortness of Breath Lidocaine (Lidoderm) 1 ea TD DAILY [facility] Last Admin: 12/25/16 08:56 Dose: 1 ea Metoprolol Succinate (Toprol Xl) 25 mg PO DAILY [facility] Last Admin: 12/25/16 08:54 Dose: 25 mg Ondansetron HCl (Zofran Inj) 4 mg IVP Q6 PRN PRN Reason: Nausea/Vomiting Simethicone (Mylicon Chew Tab) 80 mg PO BID PRN PRN Reason: Flatulence Tramadol HCl (Ultram) 50 mg PO Q8H PRN PRN Reason: Pain, severe (8-10) Last Admin: 12/25/16 12:28 Dose: 50 mg - Labs Labs: 12/25/16 06:30 12/25/16 06:30 - Constitutional Appears: Non-toxic - Head Exam Head Exam: ATRAUMATIC, NORMOCEPHALIC - Eye Exam Eye Exam: EOMI, PERRL Pupil Exam: NORMAL ACCOMODATION - ENT Exam ENT Exam: Mucous Membranes Moist, Normal Exam - Neck Exam Neck Exam: Normal Inspection - Respiratory Exam Respiratory Exam: Accessory Muscle Use, Prolonged Expiratory Phase, Rhonchi, Respiratory Distress. absent: Wheezes - Cardiovascular Exam Cardiovascular Exam: Irregular Rhythm, +S1, +S2. absent: JVD - GI/Abdominal Exam GI & Abdominal Exam: Normal Bowel Sounds. absent: Distended, Guarding, Tenderness, Rebound - Rectal Exam Rectal Exam: Deferred - Extremities Exam Extremities Exam: Normal Capillary Refill, Normal Inspection. absent: Pedal Edema - Back Exam Back Exam: NORMAL INSPECTION - Neurological Exam Neurological Exam: Alert, Awake, Oriented x3 - Psychiatric Exam Psychiatric exam: Anxious - Skin Skin Exam: Dry, Pallor, Warm Assessment and Plan - Assessment and Plan (Free Text) Assessment: 86 year old female with history of A fib, HTN, CHF, COPD on home Oxygen comes with one hour of worsening SOB associated with a sudden tightness type of left chest pain radiating to the left shoulder at rest. She refers nonproductive cough with wheezes. She was admitted with COPD exacerbation and chest pain in telemetry for close monitoring. Pulmonary and cardiology were consulted . 1. Acute on chronic COPD Exacerbation improving slowly pulmonary consult with Dr. Gonzalez appreciated with dyspnea at rest Continue Solumderol tappering dose Continue Duoneb Q4hrs O2 at 2L/min via N/c and CPAP ordered continue Rocephin emperically 2. Chronic CHF Systolic and Diastolic dysfunction Consult with Dr Basurto appreciated continue Lasix,Metoprolol,isosorbide Mononitrate 3. Chest Pain- ACS ruled out Cardiology on consult Serial Troponins were negative Continue ASA Nitroglycerine PRN 4. 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 A Fib rate controlled on Metoprolol and digoxin 6. HTN controlled 7. Over grown toe nails Podiatry consult 8. GERD Pepcid 9. DVT Prophylaxis Lovenox
[2016-12-25] MEDS: Bisacodyl 5mg EC Tab PO SCH (21:14)
[2016-12-26] MEDS: methylPREDNISolone 60 MG in Sodium Chloride 0.9% 50 ML IVPB SCH ×2 (03:48→09:10)
[2016-12-26 07:28] LABS: HEMOGLOBIN 13.9 g/dL (12.0-16.0); MEAN CELL VOLUME 81.9 fl (81.0-99.0); MEAN CORPUSCULAR HEMOGLOBIN 25.7 pg (27.0-31.0); MEAN CORPUSCULAR HGB CONC 31.4 g/dL (33.0-37.0); RBC 5.4 Mil/uL (3.80-5.20); RED CELL DISTRIBUTION WIDTH 15.5 % (11.5-14.5); WHITE BLOOD COUNT 15.6 K/uL (4.8-10.8)
[2016-12-26 07:49] LABS: CALCIUM 9.7 mg/dL (8.4-10.2)
[2016-12-26] MEDS: Metoprolol Succinate 25 mg XL Tab PO SCH (08:52)
[2016-12-26] MEDS: Enoxaparin 40 mg Syringe SC SCH (08:53)
[2016-12-26] MEDS: Digoxin 125 mcg (0.125 mg) Tab PO SCH (08:53)
[2016-12-26] MEDS: Lidocaine 5% Patch TD SCH (08:54)
--- NOTE | 2016-12-26 10:55 | CP.PCM.PN ---
Subjective - Date & Time of Evaluation Date of Evaluation: 12/26/16 Time of Evaluation: 10:54 - Subjective Subjective: SOB IMPROVING ANXIOUS SLEPT WELL WITH BIPAP Objective - Vital Signs/Intake and Output Vital Signs (last 24 hours): Temp Pulse Resp BP Pulse Ox 98.3 F 70 18 141/77 100 12/26/16 08:00 12/26/16 08:52 12/26/16 08:00 12/26/16 08:52 12/26/16 08:00 - Medications Medications: Current Medications Acetaminophen/Codeine Phosphate (Tylenol/Codeine 300 Mg/30 Mg) 1 tab PO Q4H PRN PRN Reason: Pain, moderate (4-7) Last Admin: 12/25/16 09:01 Dose: 1 tab Alprazolam (Xanax) 0.5 mg PO TID [facility] Last Admin: 12/26/16 09:10 Dose: 0.5 mg Amlodipine Besylate (Norvasc) 10 mg PO DAILY [facility] Last Admin: 12/26/16 08:52 Dose: 10 mg Aspirin (Ecotrin) 81 mg PO DAILY [facility] Last Admin: 12/26/16 08:53 Dose: 81 mg Bisacodyl (Dulcolax) 10 mg PO HS [facility] Last Admin: 12/25/16 21:14 Dose: 10 mg Digoxin (Lanoxin) 0.125 mg PO DAILY [facility] Last Admin: 12/26/16 08:53 Dose: 0.125 mg Docusate Sodium (Colace) 100 mg PO BID [facility] Last Admin: 12/26/16 08:51 Dose: 100 mg Enoxaparin Sodium (Lovenox) 40 mg SC DAILY [facility] PRN Reason: Protocol Last Admin: 12/26/16 08:53 Dose: 40 mg Famotidine (Pepcid) 20 mg PO DAILY [facility] Last Admin: 12/26/16 08:53 Dose: 20 mg Fluticasone Propionate (Flonase) 2 spr KRISSY DAILY [facility] Last Admin: 12/26/16 08:52 Dose: 2 spr Furosemide (Lasix) 20 mg IVP BID [facility] Last Admin: 12/26/16 08:49 Dose: 20 mg Methylprednisolone 60 mg/ (Sodium Chloride) 50 mls @ 100 mls/hr IVPB Q6 [facility] Last Admin: 12/26/16 09:10 Dose: 100 mls/hr Ceftriaxone Sodium 1 gm/ (Sodium Chloride) 100 mls @ 100 mls/hr IVPB DAILY [facility] Last Admin: 12/26/16 08:50 Dose: 100 mls/hr Isosorbide Mononitrate (Imdur) 60 mg PO DAILY [facility] Last Admin: 12/26/16 08:53 Dose: 60 mg Lactulose (Enulose) 20 gm PO DAILY PRN PRN Reason: Constipation Levalbuterol HCl (Xopenex) 1.25 mg INH RQ8 PRN PRN Reason: Shortness of Breath Lidocaine (Lidoderm) 1 ea TD DAILY [facility] Last Admin: 12/26/16 08:54 Dose: 1 ea Metoprolol Succinate (Toprol Xl) 25 mg PO DAILY [facility] Last Admin: 12/26/16 08:52 Dose: 25 mg Ondansetron HCl (Zofran Inj) 4 mg IVP Q6 PRN PRN Reason: Nausea/Vomiting Simethicone (Mylicon Chew Tab) 80 mg PO BID PRN PRN Reason: Flatulence Tramadol HCl (Ultram) 50 mg PO Q8H PRN PRN Reason: Pain, severe (8-10) Last Admin: 12/26/16 08:49 Dose: 50 mg - Labs Labs: 12/26/16 06:30 12/26/16 06:30 - Constitutional Appears: Chronically Ill - Head Exam Head Exam: ATRAUMATIC, NORMAL INSPECTION, NORMOCEPHALIC - Eye Exam Eye Exam: EOMI, Normal appearance, PERRL Pupil Exam: NORMAL ACCOMODATION, PERRL - ENT Exam ENT Exam: Mucous Membranes Moist, Normal Exam - Neck Exam Neck Exam: Full ROM, Normal Inspection. absent: Lymphadenopathy - Respiratory Exam Respiratory Exam: Decreased Breath Sounds, Prolonged Expiratory Phase, NORMAL BREATHING PATTERN - Cardiovascular Exam Cardiovascular Exam: REGULAR RHYTHM, +S1, +S2. absent: Murmur - GI/Abdominal Exam GI & Abdominal Exam: Soft, Normal Bowel Sounds. absent: Tenderness - Rectal Exam Rectal Exam: NORMAL INSPECTION - Extremities Exam Extremities Exam: Full ROM, Normal Capillary Refill, Normal Inspection. absent : Joint Swelling, Pedal Edema - Back Exam Back Exam: NORMAL INSPECTION - Neurological Exam Neurological Exam: Alert, Awake, CN II-XII Intact, Normal Gait, Oriented x3 - Psychiatric Exam Psychiatric exam: Normal Affect, Normal Mood - Skin Skin Exam: Dry, Intact, Normal Color, Warm Assessment and Plan - Assessment and Plan (Free Text) Assessment: COPD Plan: CONTINUE PRESENT RX
[2016-12-26] MEDS: Acetaminophen-Codeine 300/30 mg Tab PO PRN (11:09)
--- NOTE | 2016-12-26 11:41 | CP.PCM.PN ---
Subjective - Date & Time of Evaluation Date of Evaluation: 12/26/16 Time of Evaluation: 11:30 - Subjective Subjective: Patient seen and evaluated bedside.Still complaining of feeling weak , tired with body aches and pains. Was able to sleep overnight. Feeling nauseated this AM Still with dyspnea at rest while on O2 via NC Objective - Vital Signs/Intake and Output Vital Signs (last 24 hours): Temp Pulse Resp BP Pulse Ox 98.3 F 70 18 141/77 100 12/26/16 08:00 12/26/16 09:00 12/26/16 08:00 12/26/16 08:52 12/26/16 08:00 - Medications Medications: Current Medications Acetaminophen/Codeine Phosphate (Tylenol/Codeine 300 Mg/30 Mg) 1 tab PO Q4H PRN PRN Reason: Pain, moderate (4-7) Last Admin: 12/26/16 11:09 Dose: 1 tab Alprazolam (Xanax) 0.5 mg PO TID [facility] Last Admin: 12/26/16 09:10 Dose: 0.5 mg Amlodipine Besylate (Norvasc) 10 mg PO DAILY [facility] Last Admin: 12/26/16 08:52 Dose: 10 mg Aspirin (Ecotrin) 81 mg PO DAILY [facility] Last Admin: 12/26/16 08:53 Dose: 81 mg Bisacodyl (Dulcolax) 10 mg PO HS [facility] Last Admin: 12/25/16 21:14 Dose: 10 mg Digoxin (Lanoxin) 0.125 mg PO DAILY [facility] Last Admin: 12/26/16 08:53 Dose: 0.125 mg Docusate Sodium (Colace) 100 mg PO BID [facility] Last Admin: 12/26/16 08:51 Dose: 100 mg Enoxaparin Sodium (Lovenox) 40 mg SC DAILY [facility] PRN Reason: Protocol Last Admin: 12/26/16 08:53 Dose: 40 mg Famotidine (Pepcid) 20 mg PO DAILY [facility] Last Admin: 12/26/16 08:53 Dose: 20 mg Fluticasone Propionate (Flonase) 2 spr KRISSY DAILY [facility] Last Admin: 12/26/16 08:52 Dose: 2 spr Furosemide (Lasix) 20 mg IVP BID [facility] Last Admin: 12/26/16 08:49 Dose: 20 mg Methylprednisolone 60 mg/ (Sodium Chloride) 50 mls @ 100 mls/hr IVPB Q6 [facility] Last Admin: 12/26/16 09:10 Dose: 100 mls/hr Ceftriaxone Sodium 1 gm/ (Sodium Chloride) 100 mls @ 100 mls/hr IVPB DAILY [facility] Last Admin: 12/26/16 08:50 Dose: 100 mls/hr Isosorbide Mononitrate (Imdur) 60 mg PO DAILY [facility] Last Admin: 12/26/16 08:53 Dose: 60 mg Lactulose (Enulose) 20 gm PO DAILY PRN PRN Reason: Constipation Levalbuterol HCl (Xopenex) 1.25 mg INH RQ8 PRN PRN Reason: Shortness of Breath Lidocaine (Lidoderm) 1 ea TD DAILY [facility] Last Admin: 12/26/16 08:54 Dose: 1 ea Metoprolol Succinate (Toprol Xl) 25 mg PO DAILY [facility] Last Admin: 12/26/16 08:52 Dose: 25 mg Ondansetron HCl (Zofran Inj) 4 mg IVP Q6 PRN PRN Reason: Nausea/Vomiting Simethicone (Mylicon Chew Tab) 80 mg PO BID PRN PRN Reason: Flatulence Tramadol HCl (Ultram) 50 mg PO Q8H PRN PRN Reason: Pain, severe (8-10) Last Admin: 12/26/16 08:49 Dose: 50 mg - Labs Labs: 12/26/16 06:30 12/26/16 06:30 - Constitutional Appears: Non-toxic, No Acute Distress, Other (anxious) - Head Exam Head Exam: ATRAUMATIC, NORMOCEPHALIC - Eye Exam Eye Exam: EOMI, Normal appearance, PERRL Pupil Exam: NORMAL ACCOMODATION - ENT Exam ENT Exam: Mucous Membranes Moist, Normal Exam - Neck Exam Neck Exam: Full ROM, Normal Inspection - Respiratory Exam Respiratory Exam: Accessory Muscle Use, Prolonged Expiratory Phase. absent: Rhonchi, Wheezes - Cardiovascular Exam Cardiovascular Exam: REGULAR RHYTHM, RRR, +S1, +S2. absent: JVD - GI/Abdominal Exam GI & Abdominal Exam: Soft, Normal Bowel Sounds. absent: Distended, Guarding, Tenderness, Rebound - Rectal Exam Rectal Exam: Deferred - Extremities Exam Extremities Exam: Full ROM, Normal Capillary Refill, Normal Inspection. absent : Calf Tenderness, Pedal Edema - Back Exam Back Exam: NORMAL INSPECTION - Neurological Exam Neurological Exam: Alert, Awake, CN II-XII Intact, Oriented x3 - Psychiatric Exam Psychiatric exam: Anxious - Skin Skin Exam: Dry, Pallor, Warm Assessment and Plan - Assessment and Plan (Free Text) Assessment: 86 year old female with history of A fib, HTN, CHF, COPD on home Oxygen , anxiety comes with one hour of worsening SOB associated with a sudden tightness type of left chest pain radiating to the left shoulder at rest. She refers nonproductive cough with wheezes. She was admitted with COPD exacerbation and chest pain in telemetry for close monitoring. Pulmonary and cardiology were consulted . Still feeling weak and with dyspnea at rest 1. Acute on chronic COPD Exacerbation improving slowly pulmonary consult with Dr. Gonzalez appreciated with dyspnea at rest Continue Solumderol tappering dose, 30 mg IV Q12 today Continue Duoneb Q4hrs O2 at 2L/min via N/c and Bipap bedtime continue Rocephin empirically 2. Chronic CHF Systolic and Diastolic dysfunction Consult with Dr Basurto appreciated continue Lasix,Metoprolol,isosorbide Mononitrate 3. Chest Pain- ACS ruled out Cardiology on consult Serial Troponins were negative Continue ASA Nitroglycerine PRN 4. 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 A Fib rate controlled on Metoprolol and digoxin 6. HTN controlled 7. Over grown toe nails Podiatry consult 8. GERD Pepcid 9. DVT Prophylaxis Lovenox
--- NOTE | 2016-12-26 14:35 | CP.PCM.PN ---
Subjective - Date & Time of Evaluation Date of Evaluation: 12/26/16 Time of Evaluation: 13:30 - Subjective Subjective: NO CHEST PAIN BREATHING BETTER TODAY Objective - Vital Signs/Intake and Output Vital Signs (last 24 hours): Temp Pulse Resp BP Pulse Ox 97.8 F 75 18 124/72 98 12/26/16 13:00 12/26/16 13:00 12/26/16 13:00 12/26/16 13:00 12/26/16 13:00 - Medications Medications: Current Medications Acetaminophen/Codeine Phosphate (Tylenol/Codeine 300 Mg/30 Mg) 1 tab PO Q4H PRN PRN Reason: Pain, moderate (4-7) Last Admin: 12/26/16 11:09 Dose: 1 tab Alprazolam (Xanax) 0.5 mg PO TID [facility] Last Admin: 12/26/16 12:46 Dose: 0.5 mg Amlodipine Besylate (Norvasc) 10 mg PO DAILY [facility] Last Admin: 12/26/16 08:52 Dose: 10 mg Aspirin (Ecotrin) 81 mg PO DAILY [facility] Last Admin: 12/26/16 08:53 Dose: 81 mg Bisacodyl (Dulcolax) 10 mg PO HS [facility] Last Admin: 12/25/16 21:14 Dose: 10 mg Digoxin (Lanoxin) 0.125 mg PO DAILY [facility] Last Admin: 12/26/16 08:53 Dose: 0.125 mg Docusate Sodium (Colace) 100 mg PO BID [facility] Last Admin: 12/26/16 08:51 Dose: 100 mg Enoxaparin Sodium (Lovenox) 40 mg SC DAILY [facility] PRN Reason: Protocol Last Admin: 12/26/16 08:53 Dose: 40 mg Famotidine (Pepcid) 20 mg PO DAILY [facility] Last Admin: 12/26/16 08:53 Dose: 20 mg Fluticasone Propionate (Flonase) 2 spr KRISSY DAILY [facility] Last Admin: 12/26/16 08:52 Dose: 2 spr Furosemide (Lasix) 40 mg PO DAILY [facility] Ceftriaxone Sodium 1 gm/ (Sodium Chloride) 100 mls @ 100 mls/hr IVPB DAILY [facility] Last Admin: 12/26/16 08:50 Dose: 100 mls/hr Methylprednisolone 30 mg/ (Sodium Chloride) 50 mls @ 100 mls/hr IV Q12 [facility] Isosorbide Mononitrate (Imdur) 60 mg PO DAILY [facility] Last Admin: 12/26/16 08:53 Dose: 60 mg Lactulose (Enulose) 20 gm PO DAILY PRN PRN Reason: Constipation Levalbuterol HCl (Xopenex) 1.25 mg INH RQ8 PRN PRN Reason: Shortness of Breath Lidocaine (Lidoderm) 1 ea TD DAILY [facility] Last Admin: 12/26/16 08:54 Dose: 1 ea Metoprolol Succinate (Toprol Xl) 25 mg PO DAILY [facility] Last Admin: 12/26/16 08:52 Dose: 25 mg Ondansetron HCl (Zofran Inj) 4 mg IVP Q6 PRN PRN Reason: Nausea/Vomiting Simethicone (Mylicon Chew Tab) 80 mg PO BID PRN PRN Reason: Flatulence Tramadol HCl (Ultram) 50 mg PO Q8H PRN PRN Reason: Pain, severe (8-10) Last Admin: 12/26/16 08:49 Dose: 50 mg - Labs Labs: 12/26/16 06:30 12/26/16 06:30 - Respiratory Exam Respiratory Exam: Decreased Breath Sounds, Clear to Ausculation Bilateral - Cardiovascular Exam Cardiovascular Exam: Irregular Rhythm, +S1, +S2 - Extremities Exam Extremities Exam: Normal Inspection - Additional Findings Additional findings: SET UP AND CHARGER ATRIAL FIBRILLATION Assessment and Plan - Assessment and Plan (Free Text) Assessment: COPD EXACERBATION CAD CHRONIC ATRIAL FIBRILLATION HYPERTENSION Plan: CONTINUE ASPIRIN, LOVENOX, NITRATES, METOPROLOL, DIGOXIN, FUROSEMIDE, AMLODIPINE , STEROIDS, BRONCHODILATORS FOR DISCHARGE IN AM IF STABLE
[2016-12-26] MEDS: Bisacodyl 5mg EC Tab PO SCH (21:44)
[2016-12-26] MEDS: methylPREDNISolone 30 MG in Sodium Chloride 0.9% 50 ML IV SCH (21:46)
[2016-12-27 05:08] VITALS: O2SAT 99
[2016-12-27 06:39] LABS: HEMOGLOBIN 13.1 g/dL (12.0-16.0); MEAN CELL VOLUME 81.9 fl (81.0-99.0); MEAN CORPUSCULAR HEMOGLOBIN 26.2 pg (27.0-31.0); MEAN CORPUSCULAR HGB CONC 31.9 g/dL (33.0-37.0); RBC 4.99 Mil/uL (3.80-5.20); WHITE BLOOD COUNT 12.6 K/uL (4.8-10.8)
[2016-12-27 07:32] LABS: CALCIUM 9.2 mg/dL (8.4-10.2)
--- NOTE | 2016-12-27 08:10 | CP.PCM.DIS ---
Provider - Provider Date of Admission: 12/24/16 03:12 Attending physician: Jung Rhoades Primary care physician: Dr Bettencourt Consults: Cardio: Dr Basurto Pulm: Dr Gonzalez Time Spent in preparation of Discharge (in minutes): 25 Diagnosis - Discharge Diagnosis (1) COPD exacerbation Status: Acute (2) Chronic combined systolic and diastolic CHF (congestive heart failure) Status: Chronic (3) Acute kidney injury superimposed on CKD Status: Acute (4) Acute hypercapnic respiratory failure Status: Acute (5) Chest wall pain Status: Acute Priority: High Hospital Course - Lab Results Lab Results: Most Recent Lab Values WBC 12.6 K/uL (4.8-10.8) H 12/27/16 05:00 RBC 4.99 Mil/uL (3.80-5.20) 12/27/16 05:00 Hgb 13.1 g/dL (12.0-16.0) 12/27/16 05:00 Hct 40.9 % (34.0-47.0) 12/27/16 05:00 MCV 81.9 fl (81.0-99.0) 12/27/16 05:00 MCH 26.2 pg (27.0-31.0) L 12/27/16 05:00 MCHC 31.9 g/dL (33.0-37.0) L 12/27/16 05:00 RDW 15.0 % (11.5-14.5) H 12/27/16 05:00 Plt Count 247 K/uL (130-400) 12/27/16 05:00 MPV 7.8 fl (7.2-11.7) 12/24/16 02:28 Neut % (Auto) 70.5 % (50.0-75.0) 12/24/16 02:28 Lymph % (Auto) 17.7 % (20.0-40.0) L 12/24/16 02:28 Jessamine % (Auto) 8.8 % (0.0-10.0) 12/24/16 02:28 Eos % (Auto) 2.5 % (0.0-4.0) 12/24/16 02:28 Baso % (Auto) 0.5 % (0.0-2.0) 12/24/16 02:28 Neut # 8.0 K/uL (1.8-7.0) H 12/24/16 02:28 Lymph # 2.0 K/uL (1.0-4.3) 12/24/16 02:28 Jessamine # 1.0 K/uL (0.0-0.8) H 12/24/16 02:28 Eos # 0.3 K/uL (0.0-0.7) 12/24/16 02:28 Baso # 0.1 K/uL (0.0-0.2) 12/24/16 02:28 Sodium 136 mmol/l (132-148) 12/27/16 05:00 Potassium 3.8 MMOL/L (3.6-5.0) 12/27/16 05:00 Chloride 86 mmol/L (98-107) L 12/27/16 05:00 Carbon Dioxide 43 mmol/L (22-30) H* 12/27/16 05:00 Anion Gap 11 (10-20) 12/27/16 05:00 BUN 49 mg/dl (7-17) H 12/27/16 05:00 Creatinine 1.3 mg/dL (0.7-1.2) H 12/27/16 05:00 Est GFR ( Amer) 47 12/27/16 05:00 Est GFR (Non-Af Amer) 39 12/27/16 05:00 Random Glucose 126 mg/dL (65-105) H 12/27/16 05:00 Calcium 9.2 mg/dL (8.4-10.2) 12/27/16 05:00 Total Bilirubin 0.4 mg/dl (0.2-1.3) 12/24/16 02:28 AST 26 U/L (14-36) 12/24/16 02:28 ALT 40 U/L (9-52) 12/24/16 02:28 Alkaline Phosphatase 64 U/L (38-126) 12/24/16 02:28 Troponin I 0.0230 ng/mL (0.00-0.120) 12/24/16 14:15 NT-Pro-B Natriuret Pep 2210 pg/ml (0-900) H 12/24/16 02:28 Total Protein 7.3 G/DL (6.3-8.2) 12/24/16 02:28 Albumin 4.2 g/dL (3.5-5.0) 12/24/16 02:28 Globulin 3.1 gm/dL (2.2-3.9) 12/24/16 02:28 Albumin/Globulin Ratio 1.4 (1.0-2.1) 12/24/16 02:28 Digoxin 1.1 ng/mL (0.8-2.0) 12/24/16 02:28 - Hospital Course Hospital Course: 86 year old female with history of A fib, HTN, CHF, Anxiety, and COPD on home Oxygen comes with one hour of worsening SOB associated with a sudden tightness type of left chest pain radiating to the left shoulder at rest. She refers nonproductive cough with wheezes. She was admitted with COPD exacerbation and chest pain in telemetry for close monitoring. Pulmonary and cardiology were consulted . 1. Acute on chronic COPD Exacerbation improving pulmonary consult with Dr. Gonzalez IV Solumedrol tapered sellers- will d/c home on PO Medrol dose pack Continue Duoneb Q4hrs O2 at 2L/min via N/c and Bipap bedtime Rocephin empirically given 2. Chronic CHF Systolic and Diastolic dysfunction Consult with Dr Basurto appreciated continue Lasix,Metoprolol,isosorbide Mononitrate 3. Chest Pain- ACS ruled out , Chest Wall and shoulder Pain Cardiology on consult Serial Troponins were negative Continue ASA Nitroglycerine PRN 4. 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 A Fib rate controlled on Metoprolol and digoxin 6. HTN controlled 7. Over grown toe nails Podiatry consulted 8. GERD Pepcid 9. TOMA on CKD -prob sec to Lasix ,change to PO Lasix DVT Prophylaxis Lovenox Discharge Exam - Head Exam Head Exam: ATRAUMATIC, NORMAL INSPECTION, NORMOCEPHALIC - Eye Exam Eye Exam: EOMI, Normal appearance Pupil Exam: NORMAL ACCOMODATION - ENT Exam ENT Exam: Mucous Membranes Moist, Normal External Ear Exam - Neck Exam Neck exam: Full Rom - Respiratory Exam Respiratory Exam: Decreased Breath Sounds, Rhonchi. absent: Wheezes, Respiratory Distress - Cardiovascular Exam Cardiovascular Exam: REGULAR RHYTHM, +S1, +S2 - GI/Abdominal Exam GI & Abdominal Exam: Normal Bowel Sounds, Soft. absent: Tenderness - Extremities Exam Extremities exam: normal capillary refill, pedal pulses present - Back Exam Back exam: absent: CVA tenderness (L), CVA tenderness (R) - Neurological Exam Neurological exam: Alert, CN II-XII Intact, Oriented x3, Reflexes Normal - Psychiatric Exam Psychiatric exam: Normal Affect, Normal Mood - Skin Skin Exam: Dry, Normal Color, Warm Discharge Plan - Discharge Medications Prescriptions: Methylprednisolone [Medrol Dose Pack (21 tabs)] 4 mg PO DAILY #21 tab traMADol [Ultram] 50 mg PO Q8H PRN #15 tab PRN Reason: Pain, Moderate (4-7) - Follow Up Plan Condition: IMPROVED Disposition: HOME/ ROUTINE Additional Instructions: ff up with Dr Bettencourt in 2 wks ff up with Dr Basurto in 1-2 wks Home Care
--- NOTE | 2016-12-27 08:25 | CP.PCM.PN ---
Subjective - Date & Time of Evaluation Date of Evaluation: 12/27/16 Time of Evaluation: 08:25 - Subjective Subjective: FEELS BETTER WANTS TO GO HOME TODAY SOB IMPROVED Objective - Vital Signs/Intake and Output Vital Signs (last 24 hours): Temp Pulse Resp BP Pulse Ox 98 F 85 18 139/80 99 12/27/16 05:00 12/27/16 05:00 12/27/16 05:00 12/27/16 05:00 12/27/16 05:00 - Medications Medications: Current Medications Acetaminophen/Codeine Phosphate (Tylenol/Codeine 300 Mg/30 Mg) 1 tab PO Q4H PRN PRN Reason: Pain, moderate (4-7) Last Admin: 12/26/16 11:09 Dose: 1 tab Alprazolam (Xanax) 0.5 mg PO TID [facility] Last Admin: 12/26/16 16:36 Dose: 0.5 mg Amlodipine Besylate (Norvasc) 10 mg PO DAILY [facility] Last Admin: 12/26/16 08:52 Dose: 10 mg Aspirin (Ecotrin) 81 mg PO DAILY [facility] Last Admin: 12/26/16 08:53 Dose: 81 mg Bisacodyl (Dulcolax) 10 mg PO HS [facility] Last Admin: 12/26/16 21:44 Dose: 10 mg Digoxin (Lanoxin) 0.125 mg PO DAILY [facility] Last Admin: 12/26/16 08:53 Dose: 0.125 mg Docusate Sodium (Colace) 100 mg PO BID [facility] Last Admin: 12/26/16 16:37 Dose: 100 mg Enoxaparin Sodium (Lovenox) 40 mg SC DAILY [facility] PRN Reason: Protocol Last Admin: 12/26/16 08:53 Dose: 40 mg Famotidine (Pepcid) 20 mg PO DAILY [facility] Last Admin: 12/26/16 08:53 Dose: 20 mg Fluticasone Propionate (Flonase) 2 spr KRISSY DAILY [facility] Last Admin: 12/26/16 08:52 Dose: 2 spr Furosemide (Lasix) 40 mg PO DAILY [facility] Ceftriaxone Sodium 1 gm/ (Sodium Chloride) 100 mls @ 100 mls/hr IVPB DAILY [facility] Last Admin: 12/26/16 08:50 Dose: 100 mls/hr Methylprednisolone 30 mg/ (Sodium Chloride) 50 mls @ 100 mls/hr IV Q12 [facility] Last Admin: 12/26/16 21:46 Dose: 100 mls/hr Isosorbide Mononitrate (Imdur) 60 mg PO DAILY [facility] Last Admin: 12/26/16 08:53 Dose: 60 mg Lactulose (Enulose) 20 gm PO DAILY PRN PRN Reason: Constipation Levalbuterol HCl (Xopenex) 1.25 mg INH RQ8 PRN PRN Reason: Shortness of Breath Lidocaine (Lidoderm) 1 ea TD DAILY [facility] Last Admin: 12/26/16 08:54 Dose: 1 ea Metoprolol Succinate (Toprol Xl) 25 mg PO DAILY [facility] Last Admin: 12/26/16 08:52 Dose: 25 mg Ondansetron HCl (Zofran Inj) 4 mg IVP Q6 PRN PRN Reason: Nausea/Vomiting Simethicone (Mylicon Chew Tab) 80 mg PO BID PRN PRN Reason: Flatulence Tramadol HCl (Ultram) 50 mg PO Q8H PRN PRN Reason: Pain, severe (8-10) Last Admin: 12/27/16 00:11 Dose: 50 mg - Labs Labs: 12/27/16 05:00 12/27/16 05:00 - Constitutional Appears: No Acute Distress - Head Exam Head Exam: ATRAUMATIC, NORMAL INSPECTION, NORMOCEPHALIC - Eye Exam Eye Exam: EOMI, Normal appearance, PERRL Pupil Exam: NORMAL ACCOMODATION, PERRL - ENT Exam ENT Exam: Mucous Membranes Moist, Normal Exam - Neck Exam Neck Exam: Full ROM, Normal Inspection. absent: Lymphadenopathy - Respiratory Exam Respiratory Exam: Decreased Breath Sounds, Prolonged Expiratory Phase, NORMAL BREATHING PATTERN - Cardiovascular Exam Cardiovascular Exam: REGULAR RHYTHM, +S1, +S2. absent: Murmur - GI/Abdominal Exam GI & Abdominal Exam: Soft, Normal Bowel Sounds. absent: Tenderness - Rectal Exam Rectal Exam: NORMAL INSPECTION - Extremities Exam Extremities Exam: Full ROM, Normal Capillary Refill, Normal Inspection. absent : Joint Swelling, Pedal Edema - Back Exam Back Exam: NORMAL INSPECTION - Neurological Exam Neurological Exam: Alert, Awake, CN II-XII Intact, Normal Gait, Oriented x3 - Psychiatric Exam Psychiatric exam: Normal Affect, Normal Mood - Skin Skin Exam: Dry, Intact, Normal Color, Warm Assessment and Plan - Assessment and Plan (Free Text) Assessment: END STAGE COPD ANXIETY Plan: OK TO D/C FROM [facility] FOLLOW UP WITH DR IVEY WILL SIGN OFF CASE
[2016-12-27] MEDS: Enoxaparin 40 mg Syringe SC SCH (09:42)
[2016-12-27] MEDS: Metoprolol Succinate 25 mg XL Tab PO SCH (09:44)
[2016-12-27] MEDS: Lidocaine 5% Patch TD SCH (09:45)
[2016-12-27] MEDS: Digoxin 125 mcg (0.125 mg) Tab PO SCH (09:46)
[2016-12-27] MEDS: methylPREDNISolone 30 MG in Sodium Chloride 0.9% 50 ML IV SCH (09:47)
[2016-12-27 09:49] VITALS: PULSE 63
--- NOTE | 2016-12-27 09:56 | CP.PCM.PN ---
Subjective - Date & Time of Evaluation Date of Evaluation: 12/27/16 Time of Evaluation: 08:15 - Subjective Subjective: NO CHEST PAIN BREATHING BETTER Objective - Vital Signs/Intake and Output Vital Signs (last 24 hours): Temp Pulse Resp BP Pulse Ox 98.1 F 63 18 148/88 99 12/27/16 08:41 12/27/16 09:44 12/27/16 08:41 12/27/16 09:46 12/27/16 08:41 - Medications Medications: Current Medications Acetaminophen/Codeine Phosphate (Tylenol/Codeine 300 Mg/30 Mg) 1 tab PO Q4H PRN PRN Reason: Pain, moderate (4-7) Last Admin: 12/26/16 11:09 Dose: 1 tab Alprazolam (Xanax) 0.5 mg PO TID [facility] Last Admin: 12/26/16 16:36 Dose: 0.5 mg Amlodipine Besylate (Norvasc) 10 mg PO DAILY [facility] Last Admin: 12/27/16 09:44 Dose: 10 mg Aspirin (Ecotrin) 81 mg PO DAILY [facility] Last Admin: 12/27/16 09:41 Dose: 81 mg Bisacodyl (Dulcolax) 10 mg PO HS [facility] Last Admin: 12/26/16 21:44 Dose: 10 mg Digoxin (Lanoxin) 0.125 mg PO DAILY [facility] Last Admin: 12/27/16 09:46 Dose: 0.125 mg Docusate Sodium (Colace) 100 mg PO BID [facility] Last Admin: 12/27/16 09:42 Dose: 100 mg Enoxaparin Sodium (Lovenox) 40 mg SC DAILY [facility] PRN Reason: Protocol Last Admin: 12/27/16 09:42 Dose: 40 mg Famotidine (Pepcid) 20 mg PO DAILY [facility] Last Admin: 12/27/16 09:44 Dose: 20 mg Fluticasone Propionate (Flonase) 2 spr KRISSY DAILY [facility] Last Admin: 12/27/16 09:42 Dose: 2 spr Furosemide (Lasix) 40 mg PO DAILY [facility] Last Admin: 12/27/16 09:46 Dose: 40 mg Ceftriaxone Sodium 1 gm/ (Sodium Chloride) 100 mls @ 100 mls/hr IVPB DAILY [facility] Last Admin: 12/26/16 08:50 Dose: 100 mls/hr Methylprednisolone 30 mg/ (Sodium Chloride) 50 mls @ 100 mls/hr IV Q12 [facility] Last Admin: 12/27/16 09:47 Dose: 100 mls/hr Isosorbide Mononitrate (Imdur) 60 mg PO DAILY [facility] Last Admin: 12/27/16 09:43 Dose: 60 mg Lactulose (Enulose) 20 gm PO DAILY PRN PRN Reason: Constipation Levalbuterol HCl (Xopenex) 1.25 mg INH RQ8 PRN PRN Reason: Shortness of Breath Lidocaine (Lidoderm) 1 ea TD DAILY [facility] Last Admin: 12/27/16 09:45 Dose: 1 ea Metoprolol Succinate (Toprol Xl) 25 mg PO DAILY [facility] Last Admin: 12/27/16 09:44 Dose: 25 mg Ondansetron HCl (Zofran Inj) 4 mg IVP Q6 PRN PRN Reason: Nausea/Vomiting Simethicone (Mylicon Chew Tab) 80 mg PO BID PRN PRN Reason: Flatulence Tramadol HCl (Ultram) 50 mg PO Q8H PRN PRN Reason: Pain, severe (8-10) Last Admin: 12/27/16 00:11 Dose: 50 mg - Labs Labs: 12/27/16 05:00 12/27/16 05:00 - Respiratory Exam Respiratory Exam: Decreased Breath Sounds, Clear to Ausculation Bilateral - Cardiovascular Exam Cardiovascular Exam: Irregular Rhythm, +S1, +S2 - Extremities Exam Extremities Exam: Normal Inspection - Additional Findings Additional findings: COPD EXACERBATION CAD-STABLE CHRONIC ATRIAL FIBRILLATION Assessment and Plan - Assessment and Plan (Free Text) Plan: OK TO DISCHARGE PATIENT FROM [facility] CONTINUE SAME CARDIAC HOME MEDICATIONS BEFORE
[2016-12-27 15:54] VITALS: BP 136/82; PULSE 70; RESP 22; TEMP 98.2
== END 2016-12-27 15:45 | disposition home health service (06) | DRG 190 ==
LOC: H.ER 01:52 → H.ERHOLD 03:12 → H.TEL 05:39
PROVIDERS: ADMIT Internal Medicine; ATTEND Internal Medicine
DX: J44.1 Chronic obstructive pulmonary disease with (acute) exacerbation (principal); J96.02 Acute respiratory failure with hypercapnia; N17.9 Acute kidney failure, unspecified; I42.9 Cardiomyopathy, unspecified; I13.0 Hypertensive heart and chronic kidney disease with heart failure and stage 1 through stage 4 chronic kidney disease, or unspecified chronic kidney disease; I50.42 Chronic combined systolic (congestive) and diastolic (congestive) heart failure; E78.5 Hyperlipidemia, unspecified; D72.829 Elevated white blood cell count, unspecified; E78.00 Pure hypercholesterolemia, unspecified; F41.9 Anxiety disorder, unspecified; G47.00 Insomnia, unspecified; G89.29 Other chronic pain; I25.10 Atherosclerotic heart disease of native coronary artery without angina pectoris; I48.2 Chronic atrial fibrillation; K21.9 Gastro-esophageal reflux disease without esophagitis; M19.90 Unspecified osteoarthritis, unspecified site; M81.0 Age-related osteoporosis without current pathological fracture; N18.3 Chronic kidney disease, stage 3 (moderate); Z79.82 Long term (current) use of aspirin; Z87.01 Personal history of pneumonia (recurrent); Z87.891 Personal history of nicotine dependence; Z99.81 Dependence on supplemental oxygen; D64.9 Anemia, unspecified; K29.70 Gastritis, unspecified, without bleeding; R07.89 Other chest pain

== ENCOUNTER 2017-01-15 10:32 | Observation (INO) | payer MEDICARE, MEDICAID ==
[2017-01-15 10:33] VITALS: PULSE 63
[2017-01-15 10:36] VITALS: TEMP 98.8
[2017-01-15 10:37] VITALS: BMI 22.4
[2017-01-15] MEDS ORDERED: Sodium Chloride 0.9% 1,000 ML IV STA (10:45)
--- NOTE | 2017-01-15 11:20 | ED PDOC ---
HPI: Abdomen Time Seen by Provider: 01/15/17 10:39 Chief Complaint (Nursing): Abdominal Pain Chief Complaint (Provider): abdominal pain History Per: Patient History/Exam Limitations: no limitations Onset/Duration Of Symptoms: Days (x 3-4) Additional History Per: Family (son) Additional Complaint(s): Sana Corcoran is a 86 year old female, with a previous medical history of constipation and chronic abdominal pain, who presents to the ED with complaints of abdominal pain associated with nausea ongoing for 3-4 days. She denies any fever, chills or vomiting. Son reports giving the patient milk of magnesium which she experienced diarrhea after. PMD: none provided Past Medical History Reviewed: Historical Data, Nursing Documentation, Vital Signs Vital Signs: Last Vital Signs Temp 98.8 F 01/15/17 10:35 Pulse 78 01/15/17 15:47 Resp 20 01/15/17 15:47 BP 149/83 01/15/17 15:47 Pulse Ox 100 01/15/17 15:47 - Medical History PMH: Anemia, Anxiety, Arthritis, Atrial Fibrillation, CAD, Cardia Arrhythmia, CHF, COPD, Diverticulitis, Gastritis, HTN, Hypercholesterolemia, Osteoporosis, Pneumonia, Chronic Kidney Disease (CKD stage 3) Denies: Asthma, Bronchitis, Emphysema, HIV, Hypothyroidism, Mitral Valve Prolapse, Peripheral Edema, Pulmonary Embolism, Rheumatoid Arthritis, Sleep Apnea - Surgical History Surgical History: Appendectomy Denies: Pacemaker - Family History Family History: States: Unknown Family Hx - Home Medications Home Medications: Ambulatory Orders Medication Instructions Recorded Acetaminophen with Codeine 1 tab PO Q4H PRN 07/30/16 [Tylenol with Codeine #3 Tablet] Albuterol Sulfate [Proair Hfa] 2 puff IH Q4H PRN 07/30/16 Alprazolam [Xanax] 0.5 mg PO TID 07/30/16 Aspirin [Ecotrin] 81 mg PO DAILY 07/30/16 Bisacodyl [Dulcolax] 10 mg PO HS 07/30/16 Calcitonin,[place],Synthetic 1 spray KRISSY DAILY 07/30/16 [Calcitonin-[place]] Digoxin [Digitek] 125 mcg PO DAILY 07/30/16 Docusate [Colace] 100 mg PO BID 07/30/16 Fluticasone Propionate [Flonase] 2 spray KRISSY DAILY 07/30/16 Gluc/Bon-MSM#1/C/Александр/Juan Jose/Bor 1 cap PO DAILY 07/30/16 [Osteo Bi-Flex Caplet] Isosorbide Mononitrate [Imdur] 60 mg PO DAILY 07/30/16 Levalbuterol [Xopenex] 0.63 mg IH Q8H PRN 07/30/16 Metoprolol Succinate [Toprol XL] 25 mg PO DAILY 07/30/16 Ondansetron [Zofran Tab] 4 mg PO DAILY PRN 07/30/16 Simethicone [Gas-X Ultra Strength] 180 mg PO BID #30 capsule 07/30/16 Tiotropium [Spiriva] 18 mcg IH DAILY 07/30/16 amLODIPine [Norvasc] 10 mg PO DAILY 07/30/16 hydroCHLOROthiazide [Hydrodiuril] 25 mg PO DAILY 07/30/16 traMADol [Ultram] 50 mg PO Q8H PRN 07/30/16 Lidocaine 5% [Lidoderm] 1 ea TD DAILY patch 12/27/16 Methylprednisolone [Medrol Dose 4 mg PO DAILY #21 tab 12/27/16 Pack (21 tabs)] traMADol [Ultram] 50 mg PO Q8H PRN #15 tab 12/27/16 - Allergies Allergies/Adverse Reactions: Allergies Allergy/AdvReac Type Severity Reaction Status Date / Time No Known Allergies Allergy Verified 07/30/16 16:17 Review of Systems Review Of Systems: ROS cannot be obtained secondary to pt's inabilty to answer questions. Constitutional: Negative for: Fever, Chills Gastrointestinal: Positive for: Nausea, Abdominal Pain. Negative for: Vomiting Physical Exam - Reviewed Nursing Documentation Reviewed: Yes Vital Signs Reviewed: Yes - Physical Exam Appears: Positive for: Well, Non-toxic, No Acute Distress Head Exam: Positive for: ATRAUMATIC, NORMAL INSPECTION, NORMOCEPHALIC Skin: Positive for: Normal Color, Warm, DRY Eye Exam: Positive for: EOMI, Normal appearance, PERRL ENT: Positive for: Normal ENT Inspection Neck: Positive for: Normal, Painless ROM Cardiovascular/Chest: Positive for: Regular Rate, Rhythm Respiratory: Positive for: CNT, Normal Breath Sounds Gastrointestinal/Abdominal: Positive for: Bowel Sounds, Soft, Tenderness ( generalized but mostly epigastric ) Back: Positive for: Normal Inspection Extremity: Positive for: Normal ROM Neurologic/Psych: Positive for: Alert, Oriented - Laboratory Results Result Diagrams: 01/15/17 11:15 01/15/17 11:15 - ECG O2 Sat by Pulse Oximetry: 97 (RA) Pulse Ox Interpretation: Normal - Radiology X-Ray: Read By Radiologist X-Ray Interpretation: No Acute Disease - CT Scan/US CT abd/pelvis Other Rad Studies (CT/US): Radiology Report Reviewed (No acute pathology. No significant interval change since prior examination.) - Physician Consult Information Physician Contacted: Fidencio Basurto Outcome Of Conversation: Case discussed, states abdominal pain radiating to chest are chronic issues, agrees with discharge home if feeling better or can place in obs. Discussed options with patient and son, patient upset and does not want to stay. Pt and son understand that chest pain can be a new cardiac event and understands risks of leaving including myocardial ischemia, myocardial infarction, . Medical Decision Making Medical Decision Making: Initial Impression: Acute on Chronic abdominal pain Initial Plan: * CXR * labs CT abd & pelvis * PT * PTT * Zofran 4 mg IV * Moorphine 2 mg IV * EKG * lipase * Troponin I * urinalysis * IV NS 1,000 ml at 90 ml/hr * reevaluation Scribe Attestation: Documented by Magalys Lemon, acting as a scribe for Magalys Padilla MD. Provider Scribe Attestation: All medical record entries made by the Scribe were at my direction and personally dictated by me. I have reviewed the chart and agree that the record accurately reflects my personal performance of the history, physical exam, medical decision making, and the department course for this patient. I have also personally directed, reviewed, and agree with the discharge instructions and disposition. Disposition - Clinical Impression Clinical Impression: Chronic abdominal pain, COPD (chronic obstructive pulmonary disease) - Disposition Disposition: Routine/Home Disposition Time: 14:48 Condition: STABLE
[2017-01-15 11:25] LABS: BASO # 0.1 K/uL (0.0-0.2); BASO % 0.7 % (0.0-2.0); EOS # 0.1 K/uL (0.0-0.7); EOS % 1.5 % (0.0-4.0); HEMATOCRIT 40.3 % (34.0-47.0); LYMPH # 1.4 K/uL (1.0-4.3); LYMPH % 16.4 % (20.0-40.0); MEAN CELL VOLUME 81.9 fl (81.0-99.0); MEAN CORPUSCULAR HEMOGLOBIN 26.4 pg (27.0-31.0); MEAN CORPUSCULAR HGB CONC 32.2 g/dL (33.0-37.0); MEAN PLATELET VOLUME 7.4 fl (7.2-11.7); MONO # 0.7 K/uL (0.0-0.8); MONO % 8.8 % (0.0-10.0); NEUT # 6.1 K/uL (1.8-7.0); NEUT % 72.6 % (50.0-75.0); RED CELL DISTRIBUTION WIDTH 15.2 % (11.5-14.5); WHITE BLOOD COUNT 8.4 K/uL (4.8-10.8)
[2017-01-15 11:36] LABS: ALB/GLOB RATIO 1.3 (1.0-2.1); BILIRUBIN,TOTAL 0.5 mg/dl (0.2-1.3); CALCIUM 10.3 mg/dL (8.4-10.2); POTASSIUM 4.9 MMOL/L (3.6-5.0); TOTAL PROTEIN 6.9 G/DL (6.3-8.2)
[2017-01-15 11:37] LABS: PARTIAL THROMBOPLASTIN TIME 32.8 Seconds (25.6-37.1)
[2017-01-15 11:48] LABS: TROPONIN I 0.024 ng/mL (0.00-0.120)
--- NOTE | 2017-01-15 12:51 | RAD ---
HISTORY: Abd pain COMPARISON: 12/24/2016 TECHNIQUE: Chest PA and lateral FINDINGS: LUNGS: Hyperinflation consistent with COPD. Bi apical pleural parenchymal fibrosis. PLEURA: No significant pleural effusion identified. No pneumothorax apparent. CARDIOVASCULAR: Normal. OSSEOUS STRUCTURES: No significant abnormalities. VISUALIZED UPPER ABDOMEN: Normal. OTHER FINDINGS: None. IMPRESSION: No active disease.
[2017-01-15] MEDS ORDERED: Sodium Chloride 0.9% 50 ML IV ONE (12:53)
[2017-01-15] MEDS ORDERED: Iodixanol 320 MG/ML 100 ML BOTTLE IV ONE (12:54)
[2017-01-15] MEDS ORDERED: Albuterol-Ipratrop 3 mg / 0.5 (3 ml) UD INH STA (13:45)
[2017-01-15] MEDS ORDERED: Albuterol-Ipratrop 3 mg / 0.5 (3 ml) UD ONE (13:49)
--- NOTE | 2017-01-15 14:07 | CT ---
PROCEDURE: CT Abdomen and Pelvis with contrast HISTORY: Gen abd pain, nausea COMPARISON: 02/19/2016. TECHNIQUE: Contrast dose: 100 cc of Omnipaque 300 Radiation dose: Total exam DLP = 841 mGy-cm. This CT exam was performed using one or more of the following dose reduction techniques: Automated exposure control, adjustment of the mA and/or kV according to patient size, and/or use of iterative reconstruction technique. FINDINGS: LOWER THORAX: Unremarkable. LIVER: Unremarkable. No gross lesion or ductal dilatation. GALLBLADDER AND BILE DUCTS: Unremarkable. PANCREAS: Unremarkable. No gross lesion or ductal dilatation. SPLEEN: Unremarkable. ADRENALS: Unremarkable. No mass. KIDNEYS AND URETERS: Small bilateral renal cysts. No hydronephrosis. No solid mass. VASCULATURE: Extensive atherosclerotic changes of the aorta.. No aortic aneurysm. BOWEL: Unremarkable. No obstruction. No gross mural thickening. APPENDIX: Normal appendix. PERITONEUM: Unremarkable. No free fluid. No free air. LYMPH NODES: Unremarkable. No enlarged lymph nodes. BLADDER: Unremarkable. REPRODUCTIVE: Unremarkable. BONES: No acute fracture. OTHER FINDINGS: None. IMPRESSION: No acute pathology. No significant interval change since prior examination.
[2017-01-15 15:47] VITALS: PULSE 78
[2017-01-15 15:48] VITALS: BP 149/83; RESP 20
--- NOTE | 2017-01-16 13:17 | CARD ---
APPROVED REPORT EKG Measurement Heart [id number] <Conclusion> Atrial fibrillation with premature ventricular or aberrantly conducted complexes Nonspecific intraventricular block T wave abnormality, consider lateral ischemia Abnormal ECG
--- NOTE | 2017-01-16 13:19 | CARD ---
APPROVED REPORT EKG Measurement Heart [id number] <Conclusion> Atrial fibrillation with premature ventricular or aberrantly conducted complexes Nonspecific intraventricular conduction delay Nonspecific ST and T wave abnormality Abnormal ECG baseline artefact
[2017-01-16 15:36] VITALS: O2SAT 97
[2017-01-17] MEDS ORDERED: Aspirin 325 mg EC Tablets PO ONE (15:54)
[2017-01-17] MEDS ORDERED: Nitroglycerin 2% Ointment Foilpak UD TOP ONE (15:55)
== END 2017-01-15 15:47 | disposition home or self-care (01) ==
LOC: H.ER 10:32 → H.ERHOLD 14:32
DX: R10.9 Unspecified abdominal pain (principal); G89.29 Other chronic pain; J44.9 Chronic obstructive pulmonary disease, unspecified; I13.0 Hypertensive heart and chronic kidney disease with heart failure and stage 1 through stage 4 chronic kidney disease, or unspecified chronic kidney disease; N18.3 Chronic kidney disease, stage 3 (moderate); I50.9 Heart failure, unspecified; I25.10 Atherosclerotic heart disease of native coronary artery without angina pectoris; I48.91 Unspecified atrial fibrillation; E78.00 Pure hypercholesterolemia, unspecified; M81.0 Age-related osteoporosis without current pathological fracture; D64.9 Anemia, unspecified; F41.9 Anxiety disorder, unspecified; K29.70 Gastritis, unspecified, without bleeding; Z79.82 Long term (current) use of aspirin
CPT/HCPCS: 71020; 74177; 80053; 82948; 83690; 84484; 85025; 85610; 85730; 93005; 94640; 96361; 96374; 96375; 96376; 99284; G0378; J2270; J2405; J7040; Q9967

== ENCOUNTER 2017-01-17 15:18 | Observation (INO) | payer MEDICARE, MEDICAID ==
--- NOTE | 2017-01-17 15:42 | ED PDOC ---
HPI: SOB/CHF/COPD Time Seen by Provider: 01/17/17 15:22 Chief Complaint (Nursing): Shortness Of Breath Chief Complaint (Provider): chest pain History Per: Patient History/Exam Limitations: no limitations Onset/Duration Of Symptoms: Days (x1) Current Symptoms Are (Timing): Still Present Associated Symptoms: Other (shortness of breath) Additional Complaint(s): Sana Corcoran, 86 year old female with a past medical history inclusive of COPD and hypertension presents to the ED for substernal chest pain radiating to her left arm associated with shortness of breath occurring for 1 day prior to arrival. The patient reports being seen in the emergency room last on for epigastric pain and was recommended observation but the patient declined. PMD: Non CPH Provider Past Medical History Reviewed: Historical Data, Nursing Documentation, Vital Signs - Medical History PMH: Anemia, Anxiety, Arthritis, Atrial Fibrillation, CAD, Cardia Arrhythmia, CHF, COPD, Diverticulitis, Gastritis, HTN, Hypercholesterolemia, Osteoporosis, Pneumonia, Chronic Kidney Disease (CKD stage 3) Denies: Asthma, Bronchitis, Emphysema, HIV, Hypothyroidism, Mitral Valve Prolapse, Peripheral Edema, Pulmonary Embolism, Rheumatoid Arthritis, Sleep Apnea - Surgical History Surgical History: Appendectomy Denies: Pacemaker - Family History Family History: States: Unknown Family Hx - Social History Current smoker - smoking cessation education provided: No Ex-Smoker (has not smoked in the last 12 months): Yes Alcohol: None Drugs: Denies - Home Medications Home Medications: Ambulatory Orders Medication Instructions Recorded Acetaminophen with Codeine 1 tab PO Q4H PRN 07/30/16 [Tylenol with Codeine #3 Tablet] Albuterol Sulfate [Proair Hfa] 2 puff IH Q4H PRN 07/30/16 Alprazolam [Xanax] 0.5 mg PO TID 07/30/16 Aspirin [Ecotrin] 81 mg PO DAILY 07/30/16 Bisacodyl [Dulcolax] 10 mg PO HS 07/30/16 Calcitonin,[place],Synthetic 1 spray KRISSY DAILY 07/30/16 [Calcitonin-[place]] Digoxin [Digitek] 125 mcg PO DAILY 07/30/16 Docusate [Colace] 100 mg PO BID 07/30/16 Fluticasone Propionate [Flonase] 2 spray KRISSY DAILY 07/30/16 Gluc/Bon-MSM#1/C/Александр/Juan Jose/Bor 1 cap PO DAILY 07/30/16 [Osteo Bi-Flex Caplet] Isosorbide Mononitrate [Imdur] 60 mg PO DAILY 07/30/16 Levalbuterol [Xopenex] 0.63 mg IH Q8H PRN 07/30/16 Metoprolol Succinate [Toprol XL] 25 mg PO DAILY 07/30/16 Ondansetron [Zofran Tab] 4 mg PO DAILY PRN 07/30/16 Simethicone [Gas-X Ultra Strength] 180 mg PO BID #30 capsule 07/30/16 Tiotropium [Spiriva] 18 mcg IH DAILY 07/30/16 amLODIPine [Norvasc] 10 mg PO DAILY 07/30/16 hydroCHLOROthiazide [Hydrodiuril] 25 mg PO DAILY 07/30/16 traMADol [Ultram] 50 mg PO Q8H PRN 07/30/16 Lidocaine 5% [Lidoderm] 1 ea TD DAILY patch 12/27/16 Methylprednisolone [Medrol Dose 4 mg PO DAILY #21 tab 12/27/16 Pack (21 tabs)] traMADol [Ultram] 50 mg PO Q8H PRN #15 tab 12/27/16 - Allergies Allergies/Adverse Reactions: Allergies Allergy/AdvReac Type Severity Reaction Status Date / Time No Known Allergies Allergy Verified 07/30/16 16:17 Review of Systems ROS Statement: Except As Marked, All Systems Reviewed And Found Negative Cardiovascular: Positive for: Chest Pain Respiratory: Positive for: Shortness of Breath Musculoskeletal: Positive for: Arm Pain (chest pain radiating down left arm) Physical Exam - Reviewed Nursing Documentation Reviewed: Yes Vital Signs Reviewed: Yes - Physical Exam Appears: Positive for: Well, Non-toxic, No Acute Distress Head Exam: Positive for: ATRAUMATIC, NORMAL INSPECTION, NORMOCEPHALIC Cardiovascular/Chest: Positive for: Irregularly Irregular Respiratory: Positive for: Decreased Breath Sounds. Negative for: Wheezing, Respiratory Distress Gastrointestinal/Abdominal: Positive for: Normal Exam, Soft. Negative for: Tenderness Extremity: Positive for: Normal ROM. Negative for: Tenderness, Deformity, Swelling Medical Decision Making Medical Decision Making: Impression: Chest pain with associated shortness of breath Plan: * ED EKG * COMP Metabolic Panel * Troponin I Stat * CBC (With Differential) * Aspirin 325 mg PO * Morphine 1 mg IVP * Reevaluation Scribe Attestation: Documented by Karuna Fuentes, acting as a scribe for Sascha Godwin MD. Provider Scribe Attestation: All medical record entries made by the Scribe were at my direction and personally dictated by me. I have reviewed the chart and agree that the record accurately reflects my personal performance of the history, physical exam, medical decision making, and the department course for this patient. I have also personally directed, reviewed, and agree with the discharge instructions and disposition. Disposition - Clinical Impression Clinical Impression: Chest pain - Patient ED Disposition Is Patient to be Admitted: Yes - Disposition Disposition Time: 15:49 Condition: FAIR Forms: [employer] (Bulgarian) - Pt Status Changed To: Hospital Disposition Of: Observation - POA Present On Arrival: None
[2017-01-17] MEDS ORDERED: Nitroglycerin 2% 15 INCH/30 GM TUBE TOP STA (15:47)
[2017-01-17 16:34] LABS: BASO % 0.4 % (0.0-2.0); EOS # 0.1 K/uL (0.0-0.7); EOS % 1.4 % (0.0-4.0); HEMOGLOBIN 12.3 g/dL (12.0-16.0); LYMPH # 1.3 K/uL (1.0-4.3); LYMPH % 20.2 % (20.0-40.0); MEAN CELL VOLUME 80.9 fl (81.0-99.0); MEAN CORPUSCULAR HEMOGLOBIN 26.4 pg (27.0-31.0); MEAN CORPUSCULAR HGB CONC 32.6 g/dL (33.0-37.0); MEAN PLATELET VOLUME 7.2 fl (7.2-11.7); MONO # 0.7 K/uL (0.0-0.8); MONO % 11.1 % (0.0-10.0); NEUT # 4.5 K/uL (1.8-7.0); NEUT % 66.9 % (50.0-75.0); NRBC % 0.1 % (0.0-0.0); RBC 4.68 Mil/uL (3.80-5.20); WHITE BLOOD COUNT 6.7 K/uL (4.8-10.8)
[2017-01-17 16:35] LABS: ALB/GLOB RATIO 1.5 (1.0-2.1); ALBUMIN 3.8 g/dL (3.5-5.0); CALCIUM 10.2 mg/dL (8.4-10.2)
[2017-01-17 16:46] LABS: TROPONIN I 0.021 ng/mL (0.00-0.120)
--- NOTE | 2017-01-17 17:07 | CP.PCM.HP ---
History of Present Illness - History of Present Illness History of Present Illness: 86 yo female with history of CHF, COPD, AFib, HTN and Anxiety brought in by son because of midsternal chest pain radiating to the left arm associated with SOB since yesterday. Pain was on and off. Patient was seen 2 days ago because of epigastric pain radiating upwards to the chest. She was advised to stay for observation but the patient refused. She was also admitted for the same reason 3 weeks ago and was managed with COPD exacerbation. Chest pain was ruled as non- cardiac in etiology. Present on Admission - Present on Admission Any Indicators Present on Admission: No History of DVT/PE: No History of Uncontrolled Diabetes: No Urinary Catheter: No Decubitus Ulcer Present: No Review of Systems - Review of Systems All systems: reviewed and no additional remarkable complaints except (aside from those mentioned above, 12 point system review were negative by me) Past Patient History - Infectious Disease Hx of Infectious Diseases: None - Tetanus Immunizations Tetanus Immunization: Unknown - Past Medical History & Family History Past Medical History?: Yes Past Family History: Reviewed and not pertinent - Past Social History Smoking Status: Former Smoker Alcohol: None Drugs: Denies Home Situation {Lives}: With Family - CARDIAC Hx Atrial Fibrillation: Yes Hx Cardia Arrhythmia: Yes Hx Congestive Heart Failure: Yes Hx Hypercholesterolemia: Yes Hx Hypertension: Yes Hx Mitral Valve Prolapse: No Hx Pacemaker: No Hx Peripheral Edema: No - PULMONARY Hx Asthma: No Hx Bronchitis: No Hx Chronic Obstructive Pulmonary Disease (COPD): Yes Hx Emphysema: No Hx Pneumonia: Yes Hx Pulmonary Embolism: No Hx Sleep Apnea: No - NEUROLOGICAL Hx Neurological Disorder: No - HEENT Hx HEENT Problems: Yes Hx Cataracts: Yes - RENAL Hx Chronic Kidney Disease: Yes (CKD stage 3) - ENDOCRINE/METABOLIC Hx Hypothyroidism: No - HEMATOLOGICAL/ONCOLOGICAL Hx Anemia: Yes Hx Human Immunodeficiency Virus (HIV): No - INTEGUMENTARY Hx Dermatological Problems: No - MUSCULOSKELETAL/RHEUMATOLOGICAL Hx Arthritis: Yes Hx Osteoporosis: Yes Hx Rheumatoid Arthritis: No - GASTROINTESTINAL Hx Diverticulitis: Yes Hx Gastritis: Yes - GENITOURINARY/GYNECOLOGICAL Hx Genitourinary Disorders: Yes - PSYCHIATRIC Hx Anxiety: Yes - SURGICAL HISTORY Hx Appendectomy: Yes - ANESTHESIA Hx Anesthesia: Yes Hx Anesthesia Reactions: No Hx Malignant Hyperthermia: No Meds Allergies/Adverse Reactions: Allergies Allergy/AdvReac Type Severity Reaction Status Date / Time No Known Allergies Allergy Verified 07/30/16 16:17 Physical Exam - Constitutional Appears: No Acute Distress - Head Exam Head Exam: ATRAUMATIC - Eye Exam Eye Exam: absent: Scleral icterus - ENT Exam ENT Exam: Mucous Membranes Moist - Neck Exam Neck exam: Negative for: Meningismus - Respiratory Exam Respiratory Exam: Decreased Breath Sounds. absent: Wheezes, Respiratory Distress - Cardiovascular Exam Cardiovascular Exam: Irregular Rhythm - GI/Abdominal Exam GI & Abdominal Exam: Soft. absent: Tenderness - Rectal Exam Rectal Exam: Deferred - Extremities Exam Extremities exam: Negative for: pedal edema - Neurological Exam Neurological exam: Alert, Oriented x3 - Psychiatric Exam Psychiatric exam: Normal Affect - Skin Skin Exam: Dry, Intact Results - Vital Signs Recent Vital Signs: Last Vital Signs Temp Pulse Resp 24 01/17/17 15:48 BP Pulse Ox 98 01/17/17 15:48 - Labs Result Diagrams: 01/17/17 16:16 01/17/17 16:16 Labs: Laboratory Results - last 24 hr 01/17/17 01/17/17 16:16 16:16 WBC 6.7 RBC 4.68 Hgb 12.3 Hct 37.9 MCV 80.9 L MCH 26.4 L MCHC 32.6 L RDW 15.0 H Plt Count 267 MPV 7.2 Neut % (Auto) 66.9 Lymph % (Auto) 20.2 [place] % (Auto) 11.1 H Eos % (Auto) 1.4 Baso % (Auto) 0.4 Neut # 4.5 Lymph # 1.3 [place] # 0.7 Eos # 0.1 Baso # 0.0 Sodium 135 Potassium 4.7 Chloride 88 L Carbon Dioxide 40 H* Anion Gap 12 BUN 16 Creatinine 1.4 H Est GFR ( Amer) 43 Est GFR (Non-Af Amer) 36 Random Glucose 108 H Calcium 10.2 Total Bilirubin 0.3 AST 27 ALT 41 Alkaline Phosphatase 58 Troponin I 0.0210 Total Protein 6.5 Albumin 3.8 Globulin 2.7 Albumin/Globulin Ratio 1.5 Assessment & Plan (1) Chest pain Status: Acute Priority: High Comment: place on observation in telemetry. serial Troponin and EKG. cardiology consult with Dr Basurto. NTG sl prn for chest pain. Morphine 2mg IV q 4hrs prn for chest pain not responding to above (2) COPD (chronic obstructive pulmonary disease) Status: Acute Comment: Duoneb q 6 hrs. Albuterol via nebulizer q 4hrs prn (3) CHF (congestive heart failure) Status: Acute Priority: Medium Comment: continue HCTZ, Metoprolol and Isosorbide Mononitrate. ECHO (4) Afib Status: Chronic Priority: High Comment: rate controlled. continue Metoprolol and Digoxin (5) HTN (hypertension) Status: Chronic Priority: Low Comment: BP stable. continue Metoprolol (6) DVT prophylaxis Status: Acute Comment: Heparin 5000 SC q 12hrs
[2017-01-17] MEDS ORDERED: Patient's Own Med (Albuterol Sulfate 2 PUFF) IH PRN (17:24)
[2017-01-17] MEDS ORDERED: Acetaminophen-Codeine 300/30 mg Tab PO PRN (17:24)
[2017-01-17] MEDS ORDERED: Levalbuterol 0.63 MG/3 ML Inhal Soln UD IH PRN (17:24)
[2017-01-17] MEDS ORDERED: Albuterol HFA 90 mcg/actuation (8 g) INH PRN ×2 (17:57→18:00)
--- NOTE | 2017-01-17 18:03 | CP.PCM.CON ---
History of Present Illness - History of Present Illness History of Present Illness: THE PATIENT IS AN 86 YEAR OLD FEMALE WITH A LONG PMH INCLUDING CAD, CARDIOMYOPATHY, ATRIAL FIBRILLATION, CHEST WALL SYNDROME, COPD, HYPERTENSION, ANXIETY AND DEPRESSION. SHE HAS VERY SEVERE CHEST WALL SYNDROME AND WITH COPD AND SOB ALWAYS EXPANDS HER LUNGS AND RIB CAGE AND HAS CHEST NORMA PAIN. SHE WAS IN THE ER 01/15/17 FOR ABDOMINAL AND CHEST PAIN AND DECLINED ADMISSION. SHE NOW COMPLAINS OF ATYPICAL SHARP, KNIFE LIKE CHEST PAIN YESTERDAY AND TODAY AND CAME TO THER ER. HER EKG IS UNCHANGED AND HER FIRST TROPONIN WAS NORMAL AND IT WAS DECIDED TO ADMIT HER TO OBSERVATION. CARDIOLOGY WAS ASKED TO SEE AND FOLLOW HER. Past Patient History - Infectious Disease Hx of Infectious Diseases: None - Tetanus Immunizations Tetanus Immunization: Unknown - Past Medical History & Family History Past Medical History?: Yes Past Family History: Reviewed and not pertinent - Past Social History Smoking Status: Former Smoker Alcohol: None Drugs: Denies Home Situation {Lives}: With Family - CARDIAC Hx Atrial Fibrillation: Yes Hx Cardia Arrhythmia: Yes Hx Congestive Heart Failure: Yes Hx Hypercholesterolemia: Yes Hx Hypertension: Yes Hx Mitral Valve Prolapse: No Hx Pacemaker: No Hx Peripheral Edema: No - PULMONARY Hx Asthma: No Hx Bronchitis: No Hx Chronic Obstructive Pulmonary Disease (COPD): Yes Hx Emphysema: No Hx Pneumonia: Yes Hx Pulmonary Embolism: No Hx Sleep Apnea: No - NEUROLOGICAL Hx Neurological Disorder: No - HEENT Hx HEENT Problems: Yes Hx Cataracts: Yes - RENAL Hx Chronic Kidney Disease: Yes (CKD stage 3) - ENDOCRINE/METABOLIC Hx Hypothyroidism: No - HEMATOLOGICAL/ONCOLOGICAL Hx Anemia: Yes Hx Human Immunodeficiency Virus (HIV): No - INTEGUMENTARY Hx Dermatological Problems: No - MUSCULOSKELETAL/RHEUMATOLOGICAL Hx Arthritis: Yes Hx Osteoporosis: Yes Hx Rheumatoid Arthritis: No - GASTROINTESTINAL Hx Diverticulitis: Yes Hx Gastritis: Yes - GENITOURINARY/GYNECOLOGICAL Hx Genitourinary Disorders: Yes - PSYCHIATRIC Hx Anxiety: Yes - SURGICAL HISTORY Hx Appendectomy: Yes - ANESTHESIA Hx Anesthesia: Yes Hx Anesthesia Reactions: No Hx Malignant Hyperthermia: No Meds Allergies/Adverse Reactions: Allergies Allergy/AdvReac Type Severity Reaction Status Date / Time No Known Allergies Allergy Verified 07/30/16 16:17 - Medications Medications: Current Medications Acetaminophen/Codeine Phosphate (Tylenol/Codeine 300 Mg/30 Mg) 1 tab PO Q4H PRN PRN Reason: Pain, moderate (4-7) Albuterol (Ventolin Hfa 90 Mcg/Actuation (8 G)) 2 puff INH RQ6 PRN PRN Reason: Shortness of Breath Alprazolam (Xanax) 0.5 mg PO TID [facility] Amlodipine Besylate (Norvasc) 10 mg PO DAILY [facility] Aspirin (Ecotrin) 81 mg PO DAILY [facility] Digoxin (Lanoxin) 0.125 mg PO DAILY [facility] Docusate Sodium (Colace) 200 mg PO TID [facility] Fluticasone Propionate (Flonase) 2 spr KRISSY DAILY [facility] Heparin Sodium (Porcine) (Heparin) 5,000 units SC Q12 JAQUI PRN Reason: Protocol Home Med (Albuterol Sulfate) 2 puff IH Q4H PRN PRN Reason: Shortness of Breath Home Med (Multivitamin/Iron/Folic Acid [Centrum Women Tablet]) 1 tab PO DAILY [facility] Hydrochlorothiazide (Hydrodiuril) 25 mg PO DAILY [facility] Isosorbide Mononitrate (Imdur) 60 mg PO DAILY [facility] Levalbuterol HCl (Xopenex) 0.63 mg IH Q8H PRN PRN Reason: Shortness of Breath Metoprolol Succinate (Toprol Xl) 25 mg PO DAILY [facility] Morphine Sulfate (Morphine) 2 mg IVP Q4 PRN PRN Reason: chest pain Multivitamins/Minerals (Therapeutic-M Tab) 1 tab PO DAILY [facility] Nitroglycerin (Nitrostat Sl Tab) 0.4 mg SL Q5M PRN PRN Reason: chest pain Ondansetron HCl (Zofran Tab) 4 mg PO DAILY PRN PRN Reason: Nausea/Vomiting Pantoprazole Sodium (Protonix Ec Tab) 40 mg PO DAILY [facility] Tiotropium [place] (Spiriva) 18 mcg IH [facility] Physical Exam - Respiratory Exam Respiratory Exam: Decreased Breath Sounds, Clear to Auscultation Bilateral - Cardiovascular Exam Cardiovascular Exam: Irregular Rhythm, +S1, +S2 - Extremities Exam Extremities exam: Positive for: normal inspection - Additional Findings Additional findings: EKG ATRIAL FIBRILLATION, LBBB FIRST TROPONIN IS NORMAL RECENT OUT PATIENT ECHOCARDIOGRAM WITH DILATED CARDIOMYOPATHY WITH LVEF OF ~ 20% Results - Vital Signs Recent Vital Signs: Last Vital Signs Temp Pulse Resp 24 01/17/17 15:48 BP Pulse Ox 98 01/17/17 15:48 - Labs Result Diagrams: 01/17/17 16:16 01/17/17 16:16 Labs: Laboratory Results - last 24 hr 01/17/17 01/17/17 16:16 16:16 WBC 6.7 RBC 4.68 Hgb 12.3 Hct 37.9 MCV 80.9 L MCH 26.4 L MCHC 32.6 L RDW 15.0 H Plt Count 267 MPV 7.2 Neut % (Auto) 66.9 Lymph % (Auto) 20.2 [place] % (Auto) 11.1 H Eos % (Auto) 1.4 Baso % (Auto) 0.4 Neut # 4.5 Lymph # 1.3 [place] # 0.7 Eos # 0.1 Baso # 0.0 Sodium 135 Potassium 4.7 Chloride 88 L Carbon Dioxide 40 H* Anion Gap 12 BUN 16 Creatinine 1.4 H Est GFR ( Amer) 43 Est GFR (Non-Af Amer) 36 Random Glucose 108 H Calcium 10.2 Total Bilirubin 0.3 AST 27 ALT 41 Alkaline Phosphatase 58 Troponin I 0.0210 Total Protein 6.5 Albumin 3.8 Globulin 2.7 Albumin/Globulin Ratio 1.5 Assessment & Plan - Assessment and Plan (Free Text) Assessment: CHEST WALL PAIN CAD WITH CARDIOMYOPATHY CHRONIC ATRIAL FIBRILLATION HYPERTENSION COPD Plan: PATIENT ADMITTED TO ON TELEMETRY O2, ASPIRIN, HEPARIN, ISOSORBIDE MONONITRATE, DIGOXIN, NITROPASTE, AMLODIPINE, METOPROLOL, IBUPROFEN SERIAL EKGS AND CE OUT PATIENT ECHO DONE RECENTLY NOTE: PATIENT NOT ON CHRONIC ANTICOAGUATION FOR ATRIAL FIBRILLATION SHE IS A FALL RISK AND HAS OPTED FOR ASPIRIN INSTEAD
[2017-01-17] MEDS ORDERED: Tiotropium 18 mcg Cap For Inhalation IH SCH (22:00)
[2017-01-18 00:13] VITALS: O2SAT 100
[2017-01-18] MEDS ORDERED: Simethicone 80 mg Chewtab PO STA (00:54)
[2017-01-18 05:23] VITALS: RESP 20; TEMP 97.9
[2017-01-18 06:20] LABS: BASO # 0.1 K/uL (0.0-0.2); BASO % 0.9 % (0.0-2.0); EOS # 0.1 K/uL (0.0-0.7); EOS % 2.2 % (0.0-4.0); LYMPH # 1.8 K/uL (1.0-4.3); LYMPH % 27.3 % (20.0-40.0); MEAN CELL VOLUME 82.7 fl (81.0-99.0); MEAN CORPUSCULAR HEMOGLOBIN 26.2 pg (27.0-31.0); MEAN CORPUSCULAR HGB CONC 31.6 g/dL (33.0-37.0); MEAN PLATELET VOLUME 7.5 fl (7.2-11.7); MONO # 0.8 K/uL (0.0-0.8); MONO % 11.7 % (0.0-10.0); NEUT # 3.7 K/uL (1.8-7.0); NEUT % 57.9 % (50.0-75.0); NRBC % 0.1 % (0.0-0.0); RBC 4.96 Mil/uL (3.80-5.20); RED CELL DISTRIBUTION WIDTH 14.8 % (11.5-14.5); WHITE BLOOD COUNT 6.5 K/uL (4.8-10.8)
[2017-01-18 06:25] LABS: CALCIUM 10.4 mg/dL (8.4-10.2)
[2017-01-18 08:05] VITALS: BP 144/70
[2017-01-18] MEDS ORDERED: IRON PO SCH (09:00)
[2017-01-18] MEDS ORDERED: Digoxin 125 mcg (0.125 mg) Tab PO SCH (09:00)
[2017-01-18] MEDS ORDERED: Metoprolol Succinate 25 mg XL Tab PO SCH (09:00)
[2017-01-18] MEDS ORDERED: FOLIC ACID PO SCH (09:00)
[2017-01-18] MEDS ORDERED: MULTIVITAMIN PO SCH (09:00)
[2017-01-18] MEDS ORDERED: Pantoprazole 40 mg EC Tab PO SCH (09:00)
[2017-01-18] MEDS ORDERED: Multivitamin With Minerals Tab PO SCH (09:00)
[2017-01-18 09:59] VITALS: PULSE 81
--- NOTE | 2017-01-18 10:04 | CP.PCM.PN ---
Subjective - Date & Time of Evaluation Date of Evaluation: 01/18/17 Time of Evaluation: 09:00 - Subjective Subjective: LESS CHEST PAIN AFTER IBUPROFEN Objective - Vital Signs/Intake and Output Vital Signs (last 24 hours): Temp Pulse Resp BP Pulse Ox 97.9 F 81 20 144/70 100 01/18/17 08:05 01/18/17 09:59 01/18/17 08:05 01/18/17 09:59 01/18/17 08:05 - Medications Medications: Current Medications Acetaminophen/Codeine Phosphate (Tylenol/Codeine 300 Mg/30 Mg) 1 tab PO Q4H PRN PRN Reason: Pain, moderate (4-7) Albuterol (Ventolin Hfa 90 Mcg/Actuation (8 G)) 2 puff INH Q4H PRN PRN Reason: Shortness of Breath Alprazolam (Xanax) 0.5 mg PO TID [facility] Last Admin: 01/18/17 10:01 Dose: 0.5 mg Amlodipine Besylate (Norvasc) 10 mg PO DAILY [facility] Last Admin: 01/18/17 09:56 Dose: 10 mg Aspirin (Ecotrin) 81 mg PO DAILY [facility] Last Admin: 01/18/17 09:55 Dose: 81 mg Digoxin (Lanoxin) 0.125 mg PO DAILY [facility] Last Admin: 01/18/17 09:57 Dose: 0.125 mg Docusate Sodium (Colace) 200 mg PO TID [facility] Last Admin: 01/18/17 09:56 Dose: 200 mg Fluticasone Propionate (Flonase) 2 spr KRISSY DAILY [facility] Last Admin: 01/18/17 09:58 Dose: 2 spr Heparin Sodium (Porcine) (Heparin) 5,000 units SC Q12 JAQUI PRN Reason: Protocol Last Admin: 01/18/17 09:57 Dose: 5,000 units Home Med (Multivitamin/Iron/Folic Acid [Centrum Women Tablet]) 1 tab PO DAILY [facility] Hydrochlorothiazide (Hydrodiuril) 25 mg PO DAILY [facility] Last Admin: 01/18/17 09:55 Dose: 25 mg Ibuprofen (Motrin Tab) 400 mg PO Q6 PRN PRN Reason: Pain, moderate (4-7) Isosorbide Mononitrate (Imdur) 60 mg PO DAILY [facility] Last Admin: 01/18/17 09:57 Dose: 60 mg Levalbuterol HCl (Xopenex) 0.63 mg IH Q8H PRN PRN Reason: Shortness of Breath Metoprolol Succinate (Toprol Xl) 25 mg PO DAILY [facility] Last Admin: 01/18/17 09:59 Dose: 25 mg Morphine Sulfate (Morphine) 2 mg IVP Q4 PRN PRN Reason: chest pain Multivitamins/Minerals (Therapeutic-M Tab) 1 tab PO DAILY [facility] Last Admin: 01/18/17 09:56 Dose: 1 tab Nitroglycerin (Nitrostat Sl Tab) 0.4 mg SL Q5M PRN PRN Reason: chest pain Ondansetron HCl (Zofran Tab) 4 mg PO DAILY PRN PRN Reason: Nausea/Vomiting Pantoprazole Sodium (Protonix Ec Tab) 40 mg PO DAILY [facility] Last Admin: 01/18/17 09:56 Dose: 40 mg Tiotropium [place] (Spiriva) 18 mcg IH HS [facility] Last Admin: 01/17/17 21:27 Dose: 18 mcg - Labs Labs: 01/18/17 05:15 01/18/17 05:15 - Respiratory Exam Respiratory Exam: Clear to Ausculation Bilateral - Cardiovascular Exam Cardiovascular Exam: Irregular Rhythm, +S1, +S2 - Extremities Exam Extremities Exam: Normal Inspection - Additional Findings Additional findings: 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
--- NOTE | 2017-01-18 10:37 | CP.PCM.DIS ---
Provider - Provider Date of Admission: 01/17/17 15:48 Attending physician: Rusty Spicer MD Primary care physician: Dr. Basurto Consults: Cardiology consult Time Spent in preparation of Discharge (in minutes): 15 Hospital Course - Lab Results Lab Results: Most Recent Lab Values WBC 6.5 K/uL (4.8-10.8) 01/18/17 05:15 RBC 4.96 Mil/uL (3.80-5.20) 01/18/17 05:15 Hgb 13.0 g/dL (12.0-16.0) 01/18/17 05:15 Hct 41.0 % (34.0-47.0) 01/18/17 05:15 MCV 82.7 fl (81.0-99.0) 01/18/17 05:15 MCH 26.2 pg (27.0-31.0) L 01/18/17 05:15 MCHC 31.6 g/dL (33.0-37.0) L 01/18/17 05:15 RDW 14.8 % (11.5-14.5) H 01/18/17 05:15 Plt Count 273 K/uL (130-400) 01/18/17 05:15 MPV 7.5 fl (7.2-11.7) 01/18/17 05:15 Neut % (Auto) 57.9 % (50.0-75.0) 01/18/17 05:15 Lymph % (Auto) 27.3 % (20.0-40.0) 01/18/17 05:15 [place] % (Auto) 11.7 % (0.0-10.0) H 01/18/17 05:15 Eos % (Auto) 2.2 % (0.0-4.0) 01/18/17 05:15 Baso % (Auto) 0.9 % (0.0-2.0) 01/18/17 05:15 Neut # 3.7 K/uL (1.8-7.0) 01/18/17 05:15 Lymph # 1.8 K/uL (1.0-4.3) 01/18/17 05:15 [place] # 0.8 K/uL (0.0-0.8) 01/18/17 05:15 Eos # 0.1 K/uL (0.0-0.7) 01/18/17 05:15 Baso # 0.1 K/uL (0.0-0.2) 01/18/17 05:15 Sodium 137 mmol/l (132-148) 01/18/17 05:15 Potassium 3.6 MMOL/L (3.6-5.0) 01/18/17 05:15 Chloride 86 mmol/L (98-107) L 01/18/17 05:15 Carbon Dioxide 43 mmol/L (22-30) H* 01/18/17 05:15 Anion Gap 12 (10-20) 01/18/17 05:15 BUN 15 mg/dl (7-17) 01/18/17 05:15 Creatinine 1.5 mg/dL (0.7-1.2) H 01/18/17 05:15 Est GFR ( Amer) 40 01/18/17 05:15 Est GFR (Non-Af Amer) 33 01/18/17 05:15 Random Glucose 100 mg/dL (65-105) 01/18/17 05:15 Calcium 10.4 mg/dL (8.4-10.2) H 01/18/17 05:15 Total Bilirubin 0.3 mg/dl (0.2-1.3) 01/17/17 16:16 AST 27 U/L (14-36) 01/17/17 16:16 ALT 41 U/L (9-52) 01/17/17 16:16 Alkaline Phosphatase 58 U/L (38-126) 01/17/17 16:16 Troponin I 0.0320 ng/mL (0.00-0.120) 01/18/17 09:30 Total Protein 6.5 G/DL (6.3-8.2) 01/17/17 16:16 Albumin 3.8 g/dL (3.5-5.0) 01/17/17 16:16 Globulin 2.7 gm/dL (2.2-3.9) 01/17/17 16:16 Albumin/Globulin Ratio 1.5 (1.0-2.1) 01/17/17 16:16 Triglycerides 332 mg/DL (0-149) H D 01/18/17 05:15 Cholesterol 262 mg/dL (0-199) H 01/18/17 05:15 LDL Cholesterol Direct 159 mg/dL (0-129) H 01/18/17 05:15 HDL Cholesterol 49 MG/DL (30-70) 01/18/17 05:15 TSH 3rd Generation 3.09 mIU/ML (0.46-4.68) 01/18/17 05:15 - Hospital Course Hospital Course: 86 yo female with history of CHF, COPD, AFib, HTN, chronic pain syndrome and Anxiety, well known to our service , brought in by son because of midsternal chest pain radiating to the left arm associated with SOB since yesterday. Pain was on and off. Patient was seen 2 days ago because of epigastric pain radiating upwards to the chest. She was advised to stay for observation but the patient refused. She was also admitted for the same reason 3 weeks ago and was managed with COPD exacerbation. Chest pain was ruled as non-cardiac in etiology. She was placed under observation , troponins were cycled and cardiology was consulted At present patient is chest pain free. Discussed with pegger . Most likely patient's pain is non cardiac in origin . ACs ruled out Patient is back to her baseline with dyspnea at rest while on O2 via [place] patient would like to go home with son will discharge her home follow up with her pulmonary Dr. Bettencourt and Dr Basurto as out patient 1. Chest pain-- not cardiac in origin--ACs ruled out placed on observation in telemetry. Troponin negatiove and EKG showed no ST--T wave changes cardiology consult with Dr Basurto appreciated pain management 2.COPD (chronic obstructive pulmonary disease) chronic , not execerbation continue home oxygen and Albuterol via nebulizer q 4 3. CHF (congestive heart failure) chronic , compensated , systolic and dyastolic dysfunction continue HCTZ, Metoprolol and Isosorbide Mononitrate. 4.Chronic Afib rate controlled. continue Metoprolol and Digoxin 5. HTN (hypertension) Chronic BP stable. continue Metoprolol 6. Chronic pain syndrome Pain management Follow up with pain management 7. Dyslipidemia Start atorvastatin Discharge Exam - Head Exam Head Exam: ATRAUMATIC, NORMOCEPHALIC - Eye Exam Eye Exam: EOMI, Normal appearance, PERRL Pupil Exam: NORMAL ACCOMODATION - ENT Exam ENT Exam: Mucous Membranes Moist, Normal Exam - Neck Exam Neck exam: Full Rom, Normal Inspection - Respiratory Exam Respiratory Exam: Accessory Muscle Use, Prolonged Expiratory Phase, Rhonchi ( right hemithorax). absent: Wheezes - Cardiovascular Exam Cardiovascular Exam: Irregular Rhythm. absent: JVD - GI/Abdominal Exam GI & Abdominal Exam: Soft. absent: Distended, Guarding, Rebound, Tenderness - Rectal Exam Rectal Exam: Deferred - Extremities Exam Extremities exam: normal capillary refill, normal inspection, pedal pulses present - Back Exam Back exam: NORMAL INSPECTION - Neurological Exam Neurological exam: Alert, CN II-XII Intact, Oriented x3, Reflexes Normal - Psychiatric Exam Psychiatric exam: Anxious, Normal Affect - Skin Skin Exam: Dry, Warm Discharge Plan - Discharge Medications Prescriptions: Atorvastatin [Lipitor] 40 mg PO HS #30 tab - Follow Up Plan Condition: FAIR Disposition: HOME/ ROUTINE Patient education suggested?: Yes Instructions: Chest Pain (DC), Noncardiac Chest Pain (DC) Referrals: Marty Bettencourt MD [Staff Provider] - Fidencio Basurto MD [Family Provider] -
[2017-01-18 12:33] VITALS: PULSE 82
--- NOTE | 2017-01-19 18:23 | CARD ---
APPROVED REPORT EKG Measurement Heart [id number] <Conclusion> Atrial fibrillation Left axis deviation Nonspecific intraventricular block Nonspecific T wave abnormality Abnormal ECG
--- NOTE | 2017-01-19 18:26 | CARD ---
APPROVED REPORT EKG Measurement Heart [id number] <Conclusion> Atrial fibrillation Left axis deviation Nonspecific intraventricular conduction delay Nonspecific ST and T wave abnormality Abnormal ECG
== END 2017-01-18 13:40 | disposition home or self-care (01) ==
LOC: H.ER 15:18 → H.ERHOLD 15:48 → H.TEL 19:40
DX: R07.89 Other chest pain (principal); I25.10 Atherosclerotic heart disease of native coronary artery without angina pectoris; I42.9 Cardiomyopathy, unspecified; I48.2 Chronic atrial fibrillation; G89.4 Chronic pain syndrome; I13.0 Hypertensive heart and chronic kidney disease with heart failure and stage 1 through stage 4 chronic kidney disease, or unspecified chronic kidney disease; I50.42 Chronic combined systolic (congestive) and diastolic (congestive) heart failure; N18.3 Chronic kidney disease, stage 3 (moderate); J44.9 Chronic obstructive pulmonary disease, unspecified; E78.5 Hyperlipidemia, unspecified; E78.00 Pure hypercholesterolemia, unspecified; M81.0 Age-related osteoporosis without current pathological fracture; Z79.899 Other long term (current) drug therapy; Z79.82 Long term (current) use of aspirin; Z87.01 Personal history of pneumonia (recurrent); Z87.891 Personal history of nicotine dependence
CPT/HCPCS: 36415; 80048; 80053; 80061; 84443; 84484; 85025; 93005; 94640; 96372; 96374; 99285; G0378; J1644; J2270

== ENCOUNTER 2017-03-14 17:33 | Inpatient (IN) | payer MEDICARE, MEDICAID ==
[2017-03-14] MEDS ORDERED: Iohexol 240 (50 ml) PO ONE (18:41)
[2017-03-14] MEDS ORDERED: Sodium Chloride 0.9% 1,000 ML IV STA (18:44)
--- NOTE | 2017-03-14 18:48 | ED PDOC ---
HPI: Abdomen Time Seen by Provider: 03/14/17 18:32 Chief Complaint (Nursing): Abdominal Pain Chief Complaint (Provider): Abdominal pain History Per: Patient History/Exam Limitations: no limitations Onset/Duration Of Symptoms: Days (1 week) Outside of [place] travel?: No Current Symptoms Are (Timing): Still Present Location Of Pain/Discomfort: Epigastric Associated Symptoms: denies: Fever Additional Complaint(s): The patient is a 86yo female, with past medical history of hypertension, hyperchlesterolemia, CAD, cardiac arrhythmia, CHF, COPD (on home O2), gastritis , diverticulitis, chronic kidney disease, send to the ED from her PCP, Dr. Bettencourt 's office, for evaluation of mid-abdomen pain, present for the past week. Patient reports the pain has been worsening and is associated with nausea, dry heaves and constipation. Patient denies any associated fevers. Per the patient' s family, they report the patient has had poor PO intake for the past week. Patient denies any other medical complaints. Past Medical History Reviewed: Historical Data, Nursing Documentation, Vital Signs Vital Signs: Last Vital Signs Temp 99.4 F 03/14/17 17:43 Pulse 68 03/14/17 19:12 Resp 22 03/14/17 17:43 BP 122/62 03/14/17 17:43 Pulse Ox 93 L 03/14/17 19:12 - Medical History PMH: Anemia, Anxiety, Arthritis, Atrial Fibrillation, CAD, Cardia Arrhythmia, CHF, COPD, Diverticulitis, Gastritis, HTN, Hypercholesterolemia, Osteoporosis, Pneumonia, Chronic Kidney Disease (CKD stage 3) Denies: Asthma, Bronchitis, Emphysema, HIV, Hypothyroidism, Mitral Valve Prolapse, Peripheral Edema, Pulmonary Embolism, Rheumatoid Arthritis, Sleep Apnea - Surgical History Surgical History: Appendectomy Denies: Pacemaker - Family History Family History: States: Unknown Family Hx - Home Medications Home Medications: Ambulatory Orders Medication Instructions Recorded Acetaminophen with Codeine 1 tab PO Q4H PRN 07/30/16 [Tylenol with Codeine #3 Tablet] Albuterol Sulfate [Proair Hfa] 2 puff IH Q4H PRN 07/30/16 Alprazolam [Xanax] 0.5 mg PO TID 07/30/16 Aspirin [Ecotrin] 81 mg PO DAILY 07/30/16 Calcitonin,[place],Synthetic 1 spray KRISSY DAILY 07/30/16 [Calcitonin-[place]] Digoxin [Digitek] 125 mcg PO DAILY 07/30/16 Docusate [Colace] 200 mg PO TID 07/30/16 Fluticasone Propionate [Flonase] 2 spray KRISSY DAILY 07/30/16 Isosorbide Mononitrate [Imdur] 60 mg PO DAILY 07/30/16 Levalbuterol [Xopenex] 0.63 mg IH Q8H PRN 07/30/16 Metoprolol Succinate [Toprol XL] 25 mg PO DAILY 07/30/16 Ondansetron [Zofran Tab] 4 mg PO DAILY PRN 07/30/16 Tiotropium [Spiriva] 18 mcg IH HS 07/30/16 amLODIPine [Norvasc] 10 mg PO DAILY 07/30/16 hydroCHLOROthiazide [Hydrodiuril] 25 mg PO DAILY 07/30/16 Dicyclomine [Bentyl] 20 mg PO DAILY PRN 01/17/17 Famotidine [Pepcid] 20 mg PO BID PRN 01/17/17 Lidocaine 5% 1 appl TOP TID 01/17/17 Multivitamin/Iron/Folic Acid 1 tab PO DAILY 01/17/17 [Centrum Women Tablet] Pantoprazole Sodium [Protonix] 40 mg PO DAILY 01/17/17 Phenobarb/Hyoscy/Atropine/Scop 1 tab PO DAILY 01/17/17 [ Tablet] Atorvastatin [Lipitor] 40 mg PO HS #30 tab 01/18/17 - Allergies Allergies/Adverse Reactions: Allergies Allergy/AdvReac Type Severity Reaction Status Date / Time No Known Allergies Allergy Verified 07/30/16 16:17 Review of Systems ROS Statement: Except As Marked, All Systems Reviewed And Found Negative Constitutional: Negative for: Fever Gastrointestinal: Positive for: Nausea, Abdominal Pain, Constipation, Other ( dry heaves) Physical Exam - Reviewed Nursing Documentation Reviewed: Yes Vital Signs Reviewed: Yes - Physical Exam Appears: Positive for: Non-toxic, In Acute Distress (mild painful distress) Head Exam: Positive for: ATRAUMATIC Skin: Positive for: Dry Eye Exam: Positive for: Normal appearance Neck: Positive for: Supple Cardiovascular/Chest: Positive for: Regular Rate, Rhythm Respiratory: Positive for: Wheezing (chronic bilateral wheeze) Gastrointestinal/Abdominal: Positive for: Soft, Tenderness (periumbilical and right lower quadrant tenderness) Neurologic/Psych: Positive for: Alert, Oriented - Laboratory Results Result Diagrams: 03/14/17 19:05 03/14/17 19:05 - ECG ECG: Positive for: Interpreted By Me ECG Rhythm: Positive for: Atrial Fibrillation Rate: 68 O2 Sat by Pulse Oximetry: 93 Medical Decision Making Medical Decision Making: Impression; 86y/o female presents with worsening preumbilical pain, present for one week. Plan: -- CT AP w/ PO & IV contrast -- Bloodwork -- Pain control -- IV Fluids -- Zofran 4mg IV Scribe Attestation: Documented by Rica Coyne, acting as a scribe for Shaw Infante DO. Provider Scribe Attestation: All medical record entries made by the Scribe were at my direction and personally dictated by me. I have reviewed the chart and agree that the record accurately reflects my personal performance of the history, physical exam, medical decision making, and the department course for this patient. I have also personally directed, reviewed, and agree with the discharge instructions and disposition. Disposition - Patient ED Disposition Is Patient to be Admitted: Transfer of Care - Disposition Disposition: Transfer of Care Disposition Time: 19:10 Forms: Bookya (Nepali) Patient Signed Over To: Rachel Mc Handoff Comments: Pending CT AP, re-evaluation
[2017-03-14 19:08] LABS: BASO # 0.1 K/uL (0.0-0.2); BASO % 0.5 % (0.0-2.0); EOS # 0.2 K/uL (0.0-0.7); EOS % 1.3 % (0.0-4.0); HEMATOCRIT 39.3 % (34.0-47.0); LYMPH # 1.7 K/uL (1.0-4.3); LYMPH % 12.4 % (20.0-40.0); MEAN CELL VOLUME 82.9 fl (81.0-99.0); MEAN CORPUSCULAR HEMOGLOBIN 26.5 pg (27.0-31.0); MONO # 1.1 K/uL (0.0-0.8); MONO % 8.4 % (0.0-10.0); NEUT # 10.3 K/uL (1.8-7.0); NEUT % 77.4 % (50.0-75.0); NRBC % 0.1 % (0.0-0.0); WHITE BLOOD COUNT 13.3 K/uL (4.8-10.8)
[2017-03-14 19:14] LABS: RBC URINE 10 /hpf (0-3); URINE BACTERIA OCC (<OCC); URINE BILIRUBIN NEGATIVE (NEGATIVE); URINE BLOOD SMALL (NEGATIVE); URINE COLOR YELLOW (YELLOW); URINE GLUCOSE (UA) NEG (Normal); URINE KETONE NEGATIVE (NEGATIVE); URINE LEUKOCYTE ESTERASE LARGE Leu/uL (Negative); URINE PROTEIN 100 mg/dL (NEGATIVE); URINE UROBILINOGEN 0.2-1.0 mg/dL (0.2-1.0); WBC URINE 51 /hpf (0-5)
[2017-03-14] MEDS ORDERED: Iohexol 240 (50 ml) ONE (19:18)
[2017-03-14 19:20] LABS: ALB/GLOB RATIO 1.5 (1.0-2.1); BILIRUBIN,TOTAL 0.8 mg/dl (0.2-1.3); CALCIUM 10.4 mg/dL (8.4-10.2); POTASSIUM 4.6 MMOL/L (3.6-5.0); TOTAL PROTEIN 7.6 G/DL (6.3-8.2)
--- NOTE | 2017-03-14 19:38 | ED PDOC ---
- Laboratory Results Result Diagrams: 03/14/17 19:05 03/14/17 19:05 - ECG O2 Sat by Pulse Oximetry: 93 Medical Decision Making Medical Decision Making: Receiving sign out: Patient signed out to me by Dr. Infante pending CT AP and re-evaluation. [facility] Final Radiology Report Call: [phone] assistance Online chat: [email or web address] Patient Name: DASIA CORBIN (Age): [id number] 86 Gender: F Date of Exam: 03/14/2017 Referring Physician: Rachel Mc # of Images: [id number] Ordered As: CT ABD PELVIS PO CONTRAST ONLY Page 1 of 2 EXAM: CT Abdomen and Pelvis With Intravenous Contrast CLINICAL HISTORY: 86 years old, female; Pain; Abdominal pain; Localized; Other: Mid abd. Pain TECHNIQUE: Axial computed tomography images of the abdomen and pelvis with intravenous contrast. All CT scans at this facility use one or more dose reduction techniques, viz.: automated exposure control; ma/kV adjustment per patient size (including targeted exams where dose is matched to indication; i.e. head); or iterative reconstruction technique. Coronal and sagittal reformatted images were created and reviewed. COMPARISON: CT - ABD PELVIS IV CONTRAST ONLY 01/15/2017 1:31:56 PM FINDINGS: Lower thorax: Mild descending thoracic aortic aneurysm measures 3.3 cm. ABDOMEN: Liver: The liver is within normal limits for this noncontrast study. Gallbladder and bile ducts: The gallbladder is thick walled. There is no common bile duct dilation. Pancreas: Unremarkable. No mass. No ductal dilation. Spleen: Unremarkable. No splenomegaly. Adrenals: Unremarkable. No mass. Kidneys and ureters: There are multiple bilateral renal cysts. No hydronephrosis. Stomach and bowel: There is no wall thickening or pericolonic stranding to suggest colitis. Mildly prominent loops of small bowel in the lower abdomen without evidence of small bowel obstruction. No obstruction. Appendix: No appendix is specifically identified. There is no evidence of fluid collections or inflammatory stranding in the right lower quadrant. PELVIS: Bladder: Unremarkable. No mass. Reproductive: Unremarkable as visualized. ABDOMEN and PELVIS: Intraperitoneal space: Unremarkable. No free air. No significant fluid collection. Bones/joints: No acute fracture. No dislocation. Soft tissues: Unremarkable. Vasculature: The vasculature demonstrates diffuse moderate atherosclerotic calcification. There is a 3 cm abdominal aortic aneurysm. No evidence of aortic rupture. Lymph nodes: Unremarkable. No enlarged lymph nodes. IMPRESSION: Suspect mildly thickwalled gallbladder. Further evaluation with RIGHT upper quadrant ultrasound could be obtained. Bilateral renal cysts. No followup. Stable descending thoracic aneurysm. Stable abdominal aortic aneurysm. Thank you for allowing us to participate in the care of your patient. Dictated and Authenticated by: Bridgette Pate MD 03/14/2017 10:48 PM Eastern Time ([place] & [place]) 00:01: Spoke with patient's son and discussed results thus far. US RUQ ordered per radiology recommendation. Patient continues to complain of persistent nausea and will be admitted for management of this. [facility] Final Radiology Report Call: [phone] assistance Online chat: [email or web address] Patient Name: DASIA CORBIN (Age): [id number] 86 Gender: F Date of Exam: 03/14/2017 Referring Physician: Rachel Mc # of Images: [id number] Ordered As: US GALLBLADDER COMMON DUCT CONFIDENTIALITY STATEMENT This report is intended only for use by the referring physician, and only in accordance with law. If you received this in error, call [phone]. Page 1 of 1 EXAM: US Abdomen Limited, Right Upper Quadrant CLINICAL HISTORY: 86 years old, female; Pain; Abdominal pain; Epigastric; Additional info: Right upper quadrant rule out cholecystitis TECHNIQUE: Real-time ultrasound of the right upper quadrant with image documentation. COMPARISON: CT - ABD PELVIS PO CONTRA 03/14/2017 10:06:11 PM FINDINGS: Liver: Unremarkable measuring 14.5 cm in. No mass. No intrahepatic bile duct dilation. Gallbladder: The gallbladder is mildly thick walled measuring 4mm. Negative sonographic Guillen's sign. No gallstones. Common bile duct: Mildly dilated common bile duct measuring up to 7 mm. This could be within normal range for the patient's age. No distal common bile duct stone. Pancreas: The pancreas is poorly-visualized due to overlying bowel gas. Right kidney: There are multiple simple right renal cysts. No stones. No solid mass. No hydronephrosis. IMPRESSION: Mildly thickwalled gallbladder and dilated common bile duct. No cholelithiasis or sonographic Guillen's sign. No evidence of distal common bile duct stone. Multiple RIGHT renal cysts. Thank you for allowing us to participate in the care of your patient. Dictated and Authenticated by: Bridgette Pate MD 03/15/2017 2:56 AM Eastern Time ([place] & [place]) Spoke with Dr. Rhoades who accepted admission of the patient. DR Rhoades covers Dr. Aguilar. pt to be admitted for UTI (got rocephin) and abdominal pain. pt and family made aware of the plan, and are agreeable. Scribe Attestation: Documented by Rica Coyne and Carole Lange, acting as a scribe for Rachel Mc MD. Provider Scribe Attestation: All medical record entries made by the Scribe were at my direction and personally dictated by me. I have reviewed the chart and agree that the record accurately reflects my personal performance of the history, physical exam, medical decision making, and the department course for this patient. I have also personally directed, reviewed, and agree with the discharge instructions and disposition. Disposition Doctor Will See Patient In The: Hospital Counseled Patient/Family Regarding: Studies Performed, Diagnosis - Clinical Impression Clinical Impression: Abdominal pain, UTI (lower urinary tract infection) - POA Present On Arrival: None - Disposition Disposition: Hospitalized as Observation Patient Disposition Time: 00:00 Condition: STABLE Progress Note - Review of Symptoms Events since last encounter: 2199 IV contrast withheld because creatinine clearance was 36.
[2017-03-14] MEDS ORDERED: Iodixanol 320 MG/ML 100 ML BOTTLE IV ONE (21:21)
[2017-03-14] MEDS ORDERED: Sodium Chloride 0.9% 0 ML IV ONE (21:21)
[2017-03-15] MEDS ORDERED: Albuterol 0.083% Inhal Sol (2.5 mg/3 mL) UD INH ONE
[2017-03-15] MEDS ORDERED: Albuterol 0.083% Inhal Sol (2.5 mg/3 mL) UD ONE ×2 (00:08→07:26)
[2017-03-15] MEDS ORDERED: cefTRIAXone (Rocephin) 1 gm Inj ONE (00:08)
--- NOTE | 2017-03-15 00:13 | CP.PCM.HP ---
History of Present Illness - History of Present Illness History of Present Illness: PCP: Dr Gonzalez Demo Coordinator: Dr Bettencourt Construction Manager Dr Basurto Chief Complaint: SOB HPI: 86 years old female with hx of A fib, HTN, CHF, COPD on home Oxygen was sent to the ED by Dr Bettencourt's Office, for evaluation of a worsening abdominal pain of a weeks duration. The pain is sharp, intermittent and located at the Epigastrium and LUQ, associated with nausea, retching which also aggrivates it. She had been constipated but had a bowel movement today. No diarrhea, dysuria, urinary frequency nor fever. PMH: Anemia, Anxiety, Arthritis, A Fib, CAD, Cardia Arrhythmia, CHF, COPD, Diverticulitis, Gastritis, HTN, HLD, Osteoporosis, Pneumonia, Chronic Kidney Disease (CKD stage 3) PSH: Appendectomy SH: Former smoker; No illegal drug use; No alcohol; FH: States , no known family hx Allergies: NKDA Medications: Listed below Present on Admission - Present on Admission Any Indicators Present on Admission: No History of DVT/PE: No History of Uncontrolled Diabetes: No Urinary Catheter: No Decubitus Ulcer Present: No Review of Systems - Constitutional Constitutional: Anorexia. absent: Chills, Fever, Headache - EENT Eyes: Requires Corrective Lenses. absent: Diplopia, Floaters, Loss of Vision Ears: absent: Decreased Hearing, Tinnitus Nose/Mouth/Throat: absent: Nasal Congestion, Nasal Discharge, Sinus Pain, Sinus Pressure - Cardiovascular Cardiovascular: Dyspnea. absent: Diaphoresis, Leg Edema, Leg Ulcers, Lightheadedness - Respiratory Respiratory: Dyspnea, Wheezing. absent: Cough, Stridor, Chest Congestion - Gastrointestinal Gastrointestinal: Abdominal Pain, Constipation, Nausea, Vomiting. absent: Diarrhea - Genitourinary Genitourinary: absent: Dysuria, Flank Pain, Hematuria, Urinary Frequency - Musculoskeletal Musculoskeletal: Back Pain. absent: Arthralgias - Integumentary Integumentary: absent: Pruritus, Rash, Sores, Striae, Swelling - Neurological Neurological: absent: Confusion, Focal Weakness, Headaches, Vertigo, Weakness - Psychiatric Psychiatric: Anxiety. absent: Depression, Panic Attacks - Endocrine Endocrine: absent: Palpitations, Polyphagia, Polyuria - Hematologic/Lymphatic Hematologic: absent: Easy Bruising Past Patient History - Infectious Disease Hx of Infectious Diseases: None - Tetanus Immunizations Tetanus Immunization: Unknown - Past Medical History & Family History Past Medical History?: Yes - Past Social History Smoking Status: Former Smoker Chewing Tobacco Use: No Cigar Use: No Alcohol: None Drugs: Denies Home Situation {Lives}: With Family - CARDIAC Hx Atrial Fibrillation: Yes Hx Cardia Arrhythmia: Yes Hx Congestive Heart Failure: Yes Hx Hypercholesterolemia: Yes Hx Hypertension: Yes Hx Mitral Valve Prolapse: No Hx Pacemaker: No Hx Peripheral Edema: No - PULMONARY Hx Asthma: No Hx Bronchitis: No Hx Chronic Obstructive Pulmonary Disease (COPD): Yes Hx Emphysema: No Hx Pneumonia: Yes Hx Pulmonary Embolism: No Hx Sleep Apnea: No - NEUROLOGICAL Hx Neurological Disorder: No - HEENT Hx HEENT Problems: Yes Hx Cataracts: Yes - RENAL Hx Chronic Kidney Disease: Yes (CKD stage 3) - ENDOCRINE/METABOLIC Hx Hypothyroidism: No - HEMATOLOGICAL/ONCOLOGICAL Hx Anemia: Yes Hx Human Immunodeficiency Virus (HIV): No - INTEGUMENTARY Hx Dermatological Problems: No - MUSCULOSKELETAL/RHEUMATOLOGICAL Hx Arthritis: Yes Hx Osteoporosis: Yes Hx Rheumatoid Arthritis: No - GASTROINTESTINAL Hx Diverticulitis: Yes Hx Gastritis: Yes - GENITOURINARY/GYNECOLOGICAL Hx Genitourinary Disorders: No - PSYCHIATRIC Hx Anxiety: Yes - SURGICAL HISTORY Hx Appendectomy: Yes - ANESTHESIA Hx Anesthesia: Yes Hx Anesthesia Reactions: No Hx Malignant Hyperthermia: No Meds Allergies/Adverse Reactions: Allergies Allergy/AdvReac Type Severity Reaction Status Date / Time No Known Allergies Allergy Verified 07/30/16 16:17 Physical Exam - Constitutional Additional comments: In moderate respiratory distress - Head Exam Head Exam: ATRAUMATIC, NORMAL INSPECTION, NORMOCEPHALIC - Eye Exam Eye Exam: EOMI Pupil Exam: NORMAL ACCOMODATION, PERRL - ENT Exam ENT Exam: Mucous Membranes Moist, Normal Exam - Neck Exam Neck exam: Positive for: Full Rom, Normal Inspection. Negative for: Lymphadenopathy, Tenderness - Respiratory Exam Additional comments: Poor air entry. No Rales but mild wheezing at the upper lungs. - Cardiovascular Exam Cardiovascular Exam: Irregular Rhythm, +S1, +S2. absent: Gallop - GI/Abdominal Exam GI & Abdominal Exam: Normal Bowel Sounds, Soft Additional comments: Fyull, +ve bowel sounds, soft, no viceromegales Pain at the Epigastrium and at the Left Upper Quadrant of the abdomen No rebound tenderness nor guarding. - Rectal Exam Rectal Exam: Deferred - Extremities Exam Extremities exam: Positive for: normal inspection. Negative for: joint swelling , pedal edema - Back Exam Back exam: NORMAL INSPECTION. absent: CVA tenderness (L), CVA tenderness (R) - Neurological Exam Neurological exam: Alert, CN II-XII Intact, Oriented x3 - Psychiatric Exam Psychiatric exam: Normal Affect, Normal Mood - Skin Skin Exam: Dry, Intact, Normal Color, Warm Results - Vital Signs Recent Vital Signs: Last Vital Signs Temp 99.4 F 03/14/17 17:43 Pulse 68 03/14/17 19:22 Resp 22 03/14/17 17:43 BP 122/62 03/14/17 17:43 Pulse Ox 93 L 03/15/17 00:02 - Labs Result Diagrams: 03/15/17 05:20 03/15/17 05:20 Labs: Laboratory Results - last 24 hr 03/14/17 03/14/17 03/14/17 19:05 19:05 19:05 WBC 13.3 H D RBC 4.73 Hgb 12.6 Hct 39.3 MCV 82.9 MCH 26.5 L MCHC 32.0 L RDW 15.0 H Plt Count 348 MPV 7.0 L Neut % (Auto) 77.4 H Lymph % (Auto) 12.4 L [place] % (Auto) 8.4 Eos % (Auto) 1.3 Baso % (Auto) 0.5 Neut # 10.3 H Lymph # 1.7 [place] # 1.1 H Eos # 0.2 Baso # 0.1 Sodium 131 L Potassium 4.6 Chloride 81 L Carbon Dioxide 32 H Anion Gap 23 H BUN 21 H Creatinine 1.4 H Est GFR ( Amer) 43 Est GFR (Non-Af Amer) 36 Random Glucose 125 H Calcium 10.4 H Total Bilirubin 0.8 AST 30 ALT 30 Alkaline Phosphatase 72 Total Protein 7.6 Albumin 4.6 Globulin 3.0 Albumin/Globulin Ratio 1.5 Lipase 45 Urine Color Yellow Urine Clarity Cloudy Urine pH 5.0 Ur Specific [place] 1.021 Urine Protein 100 Urine Glucose (UA) Neg Urine Ketones Negative Urine Blood Small Urine Nitrate Negative Urine Bilirubin Negative Urine Urobilinogen 0.2-1.0 Ur Leukocyte Esterase Large Urine RBC (Auto) 10 H Urine Microscopic WBC 51 H Ur Squamous Epith Cells 3 Urine Bacteria Occ H Hyaline Casts 3-5 H - EKG Data EKG comments: Atrial Fibrillation 68/min - Imaging and Cardiology CT scan - abdomen Status: Report reviewed by me Additional comment: COMPARISON: CT - ABD PELVIS IV CONTRAST ONLY 01/15/2017 1:31:56 PM FINDINGS: Lower thorax: Mild descending thoracic aortic aneurysm measures 3.3 cm. ABDOMEN: Liver: The liver is within normal limits for this noncontrast study. Gallbladder and bile ducts: The gallbladder is thick walled. There is no common bile duct dilation. Pancreas: Unremarkable. No mass. No ductal dilation. Spleen: Unremarkable. No splenomegaly. Adrenals: Unremarkable. No mass. Kidneys and ureters: There are multiple bilateral renal cysts. No hydronephrosis. Stomach and bowel: There is no wall thickening or pericolonic stranding to suggest colitis. Mildly prominent loops of small bowel in the lower abdomen without evidence of small bowel obstruction. No obstruction. Appendix: No appendix is specifically identified. There is no evidence of fluid collections or inflammatory stranding in the right lower quadrant. PELVIS: Bladder: Unremarkable. No mass. Reproductive: Unremarkable as visualized. ABDOMEN and PELVIS: Intraperitoneal space: Unremarkable. No free air. No significant fluid collection. Bones/joints: No acute fracture. No dislocation. Soft tissues: Unremarkable. Vasculature: The vasculature demonstrates diffuse moderate atherosclerotic calcification. There is a 3 cm abdominal aortic aneurysm. No evidence of aortic rupture. Lymph nodes: Unremarkable. No enlarged lymph nodes. IMPRESSION: Suspect mildly thickwalled gallbladder. Further evaluation with RIGHT upper quadrant ultrasound could be obtained. Bilateral renal cysts. No followup. Stable descending thoracic aneurysm. Stable abdominal aortic aneurysm. Chest x-ray Status: Image reviewed by me Additional comment: Hyperinflated. No infiltrates nor sigh of active disease Assessment & Plan - Assessment and Plan (Free Text) Assessment: #. Abdominal Pain #. Leukocytosis #. COPD #. CKD III #. A Fib rate controlled #. Hyponatremia Plan: 86 years old female with hx of A fib, HTN, CHF, COPD on home Oxygen was sent to the ED by Dr Bettencourt's Office, for evaluation of a worsening abdominal pain of a weeks duration. The pain is sharp, intermittent and located at the Epigastrium and LUQ, associated with nausea, retching. No diarrhea, dysuria, urinary frequency nor fever. #. Abdominal Pain LUQ and epigastrium with a negative CT abdomen/Pelvis. No rash to indicated Herpes Zoster, Amylase is normal and no hx of Pancreatitis, No evidence for Gastroparesis. The patient was constipated but no mention of abundant stool or stool impaction. The patient has a hx of gastritis. - Follow US of the RUQ - Abdomen supine and lateral Decubitus to re-evaluate for obstruction if Pain continues - Pepcid Q12 - Zofran IV -Pain management with Morphine #. Leukocytosis - Follow WBC #. UTI - Urine culture - Rocephin #. Chronic COPD on Home Oxygen Consult Dr Bettencourt Pulmonary - Continue Albuterol nebulizer - Spiriva - O2 Via Nasal Cannula #. CKD III with mild dehydration - IV Fluids - Follow Renal labs #. A Fib rate controlled - Metoprolol/ Digoxin #. Chronic CHF Systolic and Diastolic dysfunction - Consult Dr basurto - Metoprolol -isosorbide Mononitrate #. Hyponatremia - IV Normal Saline #.Gastritis - Pepcid Q12 #. DVT Prophylaxis with Lovenox #. Code Status: Full - Date & Time Date: 03/15/17 Time: 00:12
[2017-03-15] MEDS ORDERED: Albuterol 0.083% Inhal Sol (2.5 mg/3 mL) UD INH PRN (03:05)
[2017-03-15] MEDS ORDERED: Sodium Chloride 0.9% 1,000 ML IV STA (03:17)
[2017-03-15 05:44] LABS: BASO % 0.3 % (0.0-2.0); EOS # 0.1 K/uL (0.0-0.7); HEMATOCRIT 37.1 % (34.0-47.0); LYMPH # 1.1 K/uL (1.0-4.3); LYMPH % 11.9 % (20.0-40.0); MEAN CELL VOLUME 82.6 fl (81.0-99.0); MEAN CORPUSCULAR HEMOGLOBIN 26.4 pg (27.0-31.0); MEAN PLATELET VOLUME 6.9 fl (7.2-11.7); MONO # 0.8 K/uL (0.0-0.8); MONO % 7.9 % (0.0-10.0); NEUT # 7.6 K/uL (1.8-7.0); NEUT % 78.9 % (50.0-75.0); RED CELL DISTRIBUTION WIDTH 14.7 % (11.5-14.5); WHITE BLOOD COUNT 9.6 K/uL (4.8-10.8)
[2017-03-15 05:59] LABS: CALCIUM 9.7 mg/dL (8.4-10.2); POTASSIUM 3.9 MMOL/L (3.6-5.0)
[2017-03-15] MEDS: Albuterol 0.083% Inhal Sol (2.5 mg/3 mL) UD INH SCH ×3 (07:50→19:11)
--- NOTE | 2017-03-15 08:57 | CT ---
PROCEDURE: CT Abdomen and Pelvis with contrast HISTORY: abdominal pain COMPARISON: None. TECHNIQUE: Helical CT of the abdomen and pelvis was performed without oral or intravenous contrast as per referring physician request . Contrast dose: None Radiation dose: Total exam DLP = 505.24 mGy-cm. This CT exam was performed using one or more of the following dose reduction techniques: Automated exposure control, adjustment of the mA and/or kV according to patient size, and/or use of iterative reconstruction technique. FINDINGS: LOWER THORAX: U a small hiatal hernia is encountered. No pleural pericardial effusion. No infiltrate bilaterally at the bases. LIVER: Unremarkable. No gross lesion or ductal dilatation. GALLBLADDER AND BILE DUCTS: Gallbladder appears distended and is borderline thick-walled. No pericholecystic fluid collection or radiodense cholelithiasis is identified. Further clinical correlation is advised. PANCREAS: Unremarkable. No gross lesion or ductal dilatation. SPLEEN: Unremarkable. ADRENALS: Unremarkable. No mass. KIDNEYS AND URETERS: Stable bilateral renal cysts are seen greater the right than left kidney once again. VASCULATURE: Mild prominence of the visualized distal thoracic aorta appreciate up to 2.9 cm greatest dimension with the mid abdominal aorta measuring 2.2 cm an expanding mildly to 2.8 cm below the renal arteries bilaterally tapering to 2.4 cm and and dilating to 3.0 cm. The caliber is normal medially proximal to the bifurcation. Aortic atherosclerosis is again appreciated. BOWEL: Unremarkable. No obstruction. No gross mural thickening. APPENDIX: The cecum is in the central pelvis with the appendix not identified clearly. No definite CT pattern suggest appendicitis however. PERITONEUM: Unremarkable. No free fluid. No free air. LYMPH NODES: Unremarkable. No enlarged lymph nodes. BLADDER: Distended and thin walled but otherwise unremarkable. REPRODUCTIVE: Unremarkable. BONES: No acute fracture. OTHER FINDINGS: None. IMPRESSION: 1. A distended gallbladder are pre is appreciated with borderline mural thickening. No pericholecystic fluid collection or radiodense cholelithiasis. Clinically correlate for potential cholecystitis. 2. No bowel obstruction measure edema, intra obstruction, ascites or free intrarenal gas. The appendix is not identified however there is no CT pattern of suggest appendicitis at this time either. 3. Multifocal old distal thoracic and abdominal aortic infrarenal dilatation well under 4 cm I discussed above with the abdominal aorta normal in caliber proximal to the bifurcation. The appearance is stable. 4. Stable bilateral renal cysts.
[2017-03-15] MEDS ORDERED: Lidocaine 2.5% OINTMENT TOP SCH (09:00)
--- NOTE | 2017-03-15 09:51 | RAD ---
HISTORY: SOB COMPARISON: Chest radiograph 01/15/2017. FINDINGS: LUNGS: No interval infiltrate identified bilaterally. Biapical pleural thickening is again appreciated. Hyperinflation suggestive of COPD is again evident. PLEURA: No significant pleural effusion identified, no pneumothorax apparent. CARDIOVASCULAR: Normal. OSSEOUS STRUCTURES: No significant abnormalities. VISUALIZED UPPER ABDOMEN: Normal. OTHER FINDINGS: None. IMPRESSION: 1. No acute cardiopulmonary disease in the interval. 2. COPD changes again seen as well as biapical pleural fibrosis.
--- NOTE | 2017-03-15 10:08 | CP.PCM.CON ---
History of Present Illness - History of Present Illness History of Present Illness: THE PATIENT IS AN 86 YEAR OLD FEMALE WHO CAME TO THE ER YESTERDAY FOR ABDOMINAL PAIN OF ONE WEEK'S DURATION. SHE HAS A HISTORY OF ANXIETY, CAD, CARDIOMYOPATHY WITH ACUTE DIASTOLIC AND SYSTOLIC CHF IN THE PAST, CHRONIC ATRIAL FIBRILLATION, HYPERLIPIDEMIA, COPD FROM CIGARETTE SMOKING, A PULMONARY NODULE, DIVERTICULOSIS , FECAL IMPACTIONS AND UTI'S. CARDIOLOGY WAS ASKED TO SEE HER. SHE DENIES CHEST PAIN OR PALPITATIONS. SHE HAS HER BASELINE CHRONIC SOB. Past Patient History - Infectious Disease Hx of Infectious Diseases: None - Tetanus Immunizations Tetanus Immunization: Unknown - Past Medical History & Family History Past Medical History?: Yes - Past Social History Smoking Status: Former Smoker Chewing Tobacco Use: No Cigar Use: No Alcohol: None Drugs: Denies Home Situation {Lives}: With Family - CARDIAC Hx Cardiac Disorders: Yes - PULMONARY Hx Respiratory Disorders: Yes - NEUROLOGICAL Hx Neurological Disorder: No - HEENT Hx HEENT Problems: Yes - RENAL Hx Chronic Kidney Disease: Yes (CKD stage 3) - ENDOCRINE/METABOLIC Hx Hypothyroidism: No - HEMATOLOGICAL/ONCOLOGICAL Hx Anemia: Yes Hx Human Immunodeficiency Virus (HIV): No - INTEGUMENTARY Hx Dermatological Problems: No - MUSCULOSKELETAL/RHEUMATOLOGICAL Hx Arthritis: Yes Hx Osteoporosis: Yes Hx Rheumatoid Arthritis: No - GASTROINTESTINAL Hx Diverticulitis: Yes Hx Gastritis: Yes - GENITOURINARY/GYNECOLOGICAL Hx Genitourinary Disorders: No - PSYCHIATRIC Hx Anxiety: Yes - SURGICAL HISTORY Hx Appendectomy: Yes - ANESTHESIA Hx Anesthesia: Yes Hx Anesthesia Reactions: No Hx Malignant Hyperthermia: No Meds Allergies/Adverse Reactions: Allergies Allergy/AdvReac Type Severity Reaction Status Date / Time No Known Allergies Allergy Verified 07/30/16 16:17 - Medications Medications: Current Medications Acetaminophen (Tylenol 325mg Tab) 650 mg PO Q4 PRN PRN Reason: Headache Last Admin: 03/15/17 07:33 Dose: 650 mg Albuterol Sulfate (Albuterol 0.083% Inhal [place] (2.5 Mg/3 Ml) Ud) 2.5 mg INH RQ6 JAQUI Last Admin: 03/15/17 07:50 Dose: 2.5 mg Albuterol Sulfate (Albuterol 0.083% Inhal [place] (2.5 Mg/3 Ml) Ud) 2.5 mg INH RQ2 PRN PRN Reason: Shortness of Breath Amlodipine Besylate (Norvasc) 10 mg PO DAILY REPLACED BY [facility] Aspirin (Ecotrin) 81 mg PO DAILY REPLACED BY [facility] Atorvastatin Calcium (Lipitor) 40 mg PO HS REPLACED BY [facility] Dicyclomine HCl (Bentyl) 20 mg PO DAILY PRN PRN Reason: abdominal cramping Digoxin (Lanoxin) 0.125 mg PO DAILY REPLACED BY [facility] Docusate Sodium (Colace) 200 mg PO TID REPLACED BY [facility] Enoxaparin Sodium (Lovenox) 30 mg SC DAILY REPLACED BY [facility] PRN Reason: Protocol Famotidine (Pepcid) 20 mg IVP Q12 REPLACED BY [facility] Hydrochlorothiazide (Hydrodiuril) 25 mg PO DAILY REPLACED BY [facility] Ceftriaxone Sodium 1 gm/ (Sodium Chloride) 100 mls @ 100 mls/hr IVPB DAILY REPLACED BY [facility] Isosorbide Mononitrate (Imdur) 60 mg PO DAILY REPLACED BY [facility] Lidocaine (Xylocaine 2.5%) 1 applic TOP TID REPLACED BY [facility] Metoprolol Succinate (Toprol Xl) 25 mg PO DAILY REPLACED BY [facility] Morphine Sulfate (Morphine) 2 mg IVP Q4 PRN PRN Reason: Pain, moderate (4-7) Last Admin: 03/15/17 09:02 Dose: 2 mg Morphine Sulfate (Morphine) 4 mg IVP Q4 PRN PRN Reason: Pain, severe (8-10) Ondansetron HCl (Zofran Inj) 4 mg IVP Q4 PRN PRN Reason: Nausea/Vomiting Last Admin: 03/15/17 08:58 Dose: 4 mg Ondansetron HCl (Zofran Tab) 4 mg PO DAILY PRN PRN Reason: Nausea/Vomiting Tiotropium [place] (Spiriva) 18 mcg IH HS REPLACED BY [facility] Physical Exam - Respiratory Exam Respiratory Exam: Clear to Auscultation Bilateral - Cardiovascular Exam Cardiovascular Exam: REGULAR RHYTHM, +S1, +S2 - Extremities Exam Extremities exam: Positive for: normal inspection - Additional Findings Additional findings: EKG ATRIAL FIBRILLATION , ATYPICAL LBBB CXR CHRONIC CHANGES URINE CLOUDY, MANY WBCS ABDOMINAL/PELVIC CT SCAN REPORT REVIEWED Results - Vital Signs Recent Vital Signs: Last Vital Signs Temp 97.6 F 03/15/17 09:30 Pulse 81 03/15/17 09:30 Resp 20 03/15/17 09:30 BP 157/79 H 03/15/17 09:30 Pulse Ox 98 03/15/17 09:30 - Labs Result Diagrams: 03/15/17 05:20 03/15/17 05:20 Labs: Laboratory Results - last 24 hr 03/14/17 03/14/17 03/14/17 19:05 19:05 19:05 WBC 13.3 H D RBC 4.73 Hgb 12.6 Hct 39.3 MCV 82.9 MCH 26.5 L MCHC 32.0 L RDW 15.0 H Plt Count 348 MPV 7.0 L Neut % (Auto) 77.4 H Lymph % (Auto) 12.4 L [place] % (Auto) 8.4 Eos % (Auto) 1.3 Baso % (Auto) 0.5 Neut # 10.3 H Lymph # 1.7 [place] # 1.1 H Eos # 0.2 Baso # 0.1 Sodium 131 L Potassium 4.6 Chloride 81 L Carbon Dioxide 32 H Anion Gap 23 H BUN 21 H Creatinine 1.4 H Est GFR ( Amer) 43 Est GFR (Non-Af Amer) 36 Random Glucose 125 H Calcium 10.4 H Total Bilirubin 0.8 AST 30 ALT 30 Alkaline Phosphatase 72 Total Protein 7.6 Albumin 4.6 Globulin 3.0 Albumin/Globulin Ratio 1.5 Lipase 45 Urine Color Yellow Urine Clarity Cloudy Urine pH 5.0 Ur Specific [place] 1.021 Urine Protein 100 Urine Glucose (UA) Neg Urine Ketones Negative Urine Blood Small Urine Nitrate Negative Urine Bilirubin Negative Urine Urobilinogen 0.2-1.0 Ur Leukocyte Esterase Large Urine RBC (Auto) 10 H Urine Microscopic WBC 51 H Ur Squamous Epith Cells 3 Urine Bacteria Occ H Hyaline Casts 3-5 H Digoxin 03/15/17 03/15/17 03/15/17 05:20 05:20 05:20 WBC 9.6 RBC 4.50 Hgb 11.9 L Hct 37.1 MCV 82.6 MCH 26.4 L MCHC 32.0 L RDW 14.7 H Plt Count 309 MPV 6.9 L Neut % (Auto) 78.9 H Lymph % (Auto) 11.9 L [place] % (Auto) 7.9 Eos % (Auto) 1.0 Baso % (Auto) 0.3 Neut # 7.6 H Lymph # 1.1 [place] # 0.8 Eos # 0.1 Baso # 0.0 Sodium 131 L Potassium 3.9 Chloride 84 L Carbon Dioxide 33 H Anion Gap 18 BUN 17 Creatinine 1.2 Est GFR ( Amer) 52 Est GFR (Non-Af Amer) 43 Random Glucose 122 H Calcium 9.7 Total Bilirubin AST ALT Alkaline Phosphatase Total Protein Albumin Globulin Albumin/Globulin Ratio Lipase Urine Color Urine Clarity Urine pH Ur Specific [place] Urine Protein Urine Glucose (UA) Urine Ketones Urine Blood Urine Nitrate Urine Bilirubin Urine Urobilinogen Ur Leukocyte Esterase Urine RBC (Auto) Urine Microscopic WBC Ur Squamous Epith Cells Urine Bacteria Hyaline Casts Digoxin 1.4 Assessment & Plan - Assessment and Plan (Free Text) Assessment: CAD-STABLE CHRONIC ATRIAL FIBRILLATION HYPERTENSION HYPERLIPIDEMIA UTI ABDOMINAL PAIN Plan: CONTINUE NITRATES, ASPIRIN, HCTZ, DIGOXIN, ATORVASTATIN, LOVENOX, AMLODIPINE, METOPROLOL
[2017-03-15] MEDS: Metoprolol Succinate 25 mg XL Tab PO SCH (10:44)
--- NOTE | 2017-03-15 10:45 | US ---
HISTORY: right upper quadrant rule out cholecystitis COMPARISON: 03/05/2015 TECHNIQUE: Sonographic evaluation of the right upper quadrant of the abdomen. FINDINGS: LIVER: Measures 14.5 cm in length. Patent portal vein. Portal venous flow: Hepatopetal. Unremarkeable echogenicity of the liver parenchyma. No mass. No intrahepatic bile duct dilatation. GALLBLADDER: Unremarkable. No gallstones. COMMON BILE DUCT: Measures 4.8 mm. No stones. No dilatation. PANCREAS: Unremarkable as visualized. No mass. No ductal dilatation. RIGHT KIDNEY: Measures 3.2 x 4 x 9.4 cm in length. Normal echogenicity. No calculus, mass, or hydronephrosis.Incidental finding(s): Multiple simple renal cysts the largest 1.5 x 1.7 cm resides in the lower pole region. AORTA: No aneurysmal dilatation. IVC: Unremarkable. OTHER FINDINGS: None . IMPRESSION: No significant or acute findings to account for/ related to the clinical presentation.
[2017-03-15] MEDS: Digoxin 125 mcg (0.125 mg) Tab PO SCH (10:46)
[2017-03-15] MEDS: Enoxaparin 30 mg Syringe SC SCH (10:47)
--- NOTE | 2017-03-15 10:48 | CP.PCM.CON ---
Past Patient History - Infectious Disease Hx of Infectious Diseases: None - Tetanus Immunizations Tetanus Immunization: Unknown - Past Medical History & Family History Past Medical History?: Yes - Past Social History Smoking Status: Former Smoker Chewing Tobacco Use: No Cigar Use: No Alcohol: None Drugs: Denies Home Situation {Lives}: With Family - CARDIAC Hx Cardiac Disorders: Yes - PULMONARY Hx Respiratory Disorders: Yes - NEUROLOGICAL Hx Neurological Disorder: No - HEENT Hx HEENT Problems: Yes - RENAL Hx Chronic Kidney Disease: Yes (CKD stage 3) - ENDOCRINE/METABOLIC Hx Hypothyroidism: No - HEMATOLOGICAL/ONCOLOGICAL Hx Anemia: Yes Hx Human Immunodeficiency Virus (HIV): No - INTEGUMENTARY Hx Dermatological Problems: No - MUSCULOSKELETAL/RHEUMATOLOGICAL Hx Arthritis: Yes Hx Osteoporosis: Yes Hx Rheumatoid Arthritis: No - GASTROINTESTINAL Hx Diverticulitis: Yes Hx Gastritis: Yes - GENITOURINARY/GYNECOLOGICAL Hx Genitourinary Disorders: No - PSYCHIATRIC Hx Anxiety: Yes - SURGICAL HISTORY Hx Appendectomy: Yes - ANESTHESIA Hx Anesthesia: Yes Hx Anesthesia Reactions: No Hx Malignant Hyperthermia: No Meds Allergies/Adverse Reactions: Allergies Allergy/AdvReac Type Severity Reaction Status Date / Time No Known Allergies Allergy Verified 07/30/16 16:17 - Medications Medications: Current Medications Acetaminophen (Tylenol 325mg Tab) 650 mg PO Q4 PRN PRN Reason: Headache Last Admin: 03/15/17 07:33 Dose: 650 mg Albuterol Sulfate (Albuterol 0.083% Inhal [place] (2.5 Mg/3 Ml) Ud) 2.5 mg INH RQ6 JAQUI Last Admin: 03/15/17 07:50 Dose: 2.5 mg Albuterol Sulfate (Albuterol 0.083% Inhal [place] (2.5 Mg/3 Ml) Ud) 2.5 mg INH RQ2 PRN PRN Reason: Shortness of Breath Amlodipine Besylate (Norvasc) 10 mg PO DAILY [facility] Aspirin (Ecotrin) 81 mg PO DAILY [facility] Atorvastatin Calcium (Lipitor) 40 mg PO HS [facility] Dicyclomine HCl (Bentyl) 20 mg PO DAILY PRN PRN Reason: abdominal cramping Digoxin (Lanoxin) 0.125 mg PO DAILY [facility] Docusate Sodium (Colace) 200 mg PO TID [facility] Enoxaparin Sodium (Lovenox) 30 mg SC DAILY [facility] PRN Reason: Protocol Famotidine (Pepcid) 20 mg IVP Q12 [facility] Hydrochlorothiazide (Hydrodiuril) 25 mg PO DAILY [facility] Ceftriaxone Sodium 1 gm/ (Sodium Chloride) 100 mls @ 100 mls/hr IVPB DAILY [facility] Isosorbide Mononitrate (Imdur) 60 mg PO DAILY [facility] Lidocaine (Xylocaine 2.5%) 1 applic TOP TID [facility] Metoprolol Succinate (Toprol Xl) 25 mg PO DAILY [facility] Morphine Sulfate (Morphine) 2 mg IVP Q4 PRN PRN Reason: Pain, moderate (4-7) Last Admin: 03/15/17 09:02 Dose: 2 mg Morphine Sulfate (Morphine) 4 mg IVP Q4 PRN PRN Reason: Pain, severe (8-10) Ondansetron HCl (Zofran Inj) 4 mg IVP Q4 PRN PRN Reason: Nausea/Vomiting Last Admin: 03/15/17 08:58 Dose: 4 mg Ondansetron HCl (Zofran Tab) 4 mg PO DAILY PRN PRN Reason: Nausea/Vomiting Tiotropium [place] (Spiriva) 18 mcg IH [facility] Results - Vital Signs Recent Vital Signs: Last Vital Signs Temp 97.6 F 03/15/17 09:30 Pulse 81 03/15/17 09:30 Resp 20 03/15/17 09:30 BP 157/79 H 03/15/17 09:30 Pulse Ox 98 03/15/17 09:30 - Labs Result Diagrams: 03/15/17 05:20 03/15/17 05:20 Labs: Laboratory Results - last 24 hr 03/14/17 03/14/17 03/14/17 19:05 19:05 19:05 WBC 13.3 H D RBC 4.73 Hgb 12.6 Hct 39.3 MCV 82.9 MCH 26.5 L MCHC 32.0 L RDW 15.0 H Plt Count 348 MPV 7.0 L Neut % (Auto) 77.4 H Lymph % (Auto) 12.4 L [place] % (Auto) 8.4 Eos % (Auto) 1.3 Baso % (Auto) 0.5 Neut # 10.3 H Lymph # 1.7 [place] # 1.1 H Eos # 0.2 Baso # 0.1 Sodium 131 L Potassium 4.6 Chloride 81 L Carbon Dioxide 32 H Anion Gap 23 H BUN 21 H Creatinine 1.4 H Est GFR ( Amer) 43 Est GFR (Non-Af Amer) 36 Random Glucose 125 H Calcium 10.4 H Total Bilirubin 0.8 AST 30 ALT 30 Alkaline Phosphatase 72 Total Protein 7.6 Albumin 4.6 Globulin 3.0 Albumin/Globulin Ratio 1.5 Lipase 45 Urine Color Yellow Urine Clarity Cloudy Urine pH 5.0 Ur Specific [place] 1.021 Urine Protein 100 Urine Glucose (UA) Neg Urine Ketones Negative Urine Blood Small Urine Nitrate Negative Urine Bilirubin Negative Urine Urobilinogen 0.2-1.0 Ur Leukocyte Esterase Large Urine RBC (Auto) 10 H Urine Microscopic WBC 51 H Ur Squamous Epith Cells 3 Urine Bacteria Occ H Hyaline Casts 3-5 H Digoxin 03/15/17 03/15/17 03/15/17 05:20 05:20 05:20 WBC 9.6 RBC 4.50 Hgb 11.9 L Hct 37.1 MCV 82.6 MCH 26.4 L MCHC 32.0 L RDW 14.7 H Plt Count 309 MPV 6.9 L Neut % (Auto) 78.9 H Lymph % (Auto) 11.9 L [place] % (Auto) 7.9 Eos % (Auto) 1.0 Baso % (Auto) 0.3 Neut # 7.6 H Lymph # 1.1 [place] # 0.8 Eos # 0.1 Baso # 0.0 Sodium 131 L Potassium 3.9 Chloride 84 L Carbon Dioxide 33 H Anion Gap 18 BUN 17 Creatinine 1.2 Est GFR ( Amer) 52 Est GFR (Non-Af Amer) 43 Random Glucose 122 H Calcium 9.7 Total Bilirubin AST ALT Alkaline Phosphatase Total Protein Albumin Globulin Albumin/Globulin Ratio Lipase Urine Color Urine Clarity Urine pH Ur Specific [place] Urine Protein Urine Glucose (UA) Urine Ketones Urine Blood Urine Nitrate Urine Bilirubin Urine Urobilinogen Ur Leukocyte Esterase Urine RBC (Auto) Urine Microscopic WBC Ur Squamous Epith Cells Urine Bacteria Hyaline Casts Digoxin 1.4 Assessment & Plan (1) Abdominal pain Status: Acute Priority: High (2) COPD (chronic obstructive pulmonary disease) Status: Chronic Priority: High (3) Lung nodule Assessment and Plan: HAN nodule suspicious for neoplastic disease. Status: Chronic Priority: High (4) Pyuria Status: Acute Priority: High (5) Electrolyte imbalance Status: Acute Priority: High - Date & Time Date: 03/15/17 Time: 10:45
[2017-03-15] MEDS: Divalproex 125 mg Sprinkle Capsule PO SCH (16:51)
[2017-03-15] MEDS: Tiotropium 18 mcg Cap For Inhalation IH SCH (21:25)
[2017-03-16] MEDS: Albuterol 0.083% Inhal Sol (2.5 mg/3 mL) UD INH SCH ×4 (01:01→19:23)
--- NOTE | 2017-03-16 09:19 | CP.PCM.PN ---
Subjective - Date & Time of Evaluation Date of Evaluation: 03/16/17 Time of Evaluation: 09:19 - Subjective Subjective: pt seen examined at bedside currently comfortable, however complains of intractable nausea and inability for PO intake. vitals stable no acute distress. will cotninue to monitor Objective - Vital Signs/Intake and Output Vital Signs (last 24 hours): Temp Pulse Resp BP Pulse Ox 98.2 F 66 18 133/60 92 L 03/16/17 08:00 03/16/17 08:00 03/16/17 08:00 03/16/17 08:00 03/16/17 08:00 GEN: WDWN, ALERT, COOPERATIVE HEENT: NCAT, PERRL, EOMI HEART: +S1+S2, RRR NO MRG LUNG: CTAB, NO WRR ABD: SOFT BSX4 NT ND NO HSM NO MASS EXT: WARM, WELL PERFUSED NEURO: AA0X3, STRENGTH AND SENSATION EQUAL AND BILATERAL SKIN: WARM DRY PSYCH: NORMAL MOOD NORMAL AFFECT - Medications Medications: Current Medications Acetaminophen (Tylenol 325mg Tab) 650 mg PO Q4 PRN PRN Reason: Headache Last Admin: 03/15/17 07:33 Dose: 650 mg Albuterol Sulfate (Albuterol 0.083% Inhal [place] (2.5 Mg/3 Ml) Ud) 2.5 mg INH RQ6 JAQUI Last Admin: 03/16/17 07:56 Dose: 2.5 mg Albuterol Sulfate (Albuterol 0.083% Inhal [place] (2.5 Mg/3 Ml) Ud) 2.5 mg INH RQ2 PRN PRN Reason: Shortness of Breath Amlodipine Besylate (Norvasc) 10 mg PO DAILY [facility] Last Admin: 03/15/17 10:46 Dose: 10 mg Aspirin (Ecotrin) 81 mg PO DAILY [facility] Last Admin: 03/15/17 10:44 Dose: 81 mg Atorvastatin Calcium (Lipitor) 40 mg PO HS [facility] Last Admin: 03/15/17 21:25 Dose: 40 mg Dicyclomine HCl (Bentyl) 20 mg PO DAILY PRN PRN Reason: abdominal cramping Last Admin: 03/15/17 10:49 Dose: 20 mg Digoxin (Lanoxin) 0.125 mg PO DAILY [facility] Last Admin: 03/15/17 10:46 Dose: 0.125 mg Divalproex Sodium (Depakote Sprinkles) 125 mg PO BID [facility] Last Admin: 03/15/17 16:51 Dose: 125 mg Docusate Sodium (Colace) 200 mg PO TID [facility] Last Admin: 03/15/17 16:50 Dose: 200 mg Enoxaparin Sodium (Lovenox) 30 mg SC DAILY [facility] PRN Reason: Protocol Last Admin: 03/15/17 10:47 Dose: 30 mg Famotidine (Pepcid) 20 mg IVP Q12 [facility] Last Admin: 03/15/17 21:25 Dose: 20 mg Hydrochlorothiazide (Hydrodiuril) 25 mg PO DAILY [facility] Last Admin: 03/15/17 14:52 Dose: 25 mg Ceftriaxone Sodium 1 gm/ (Sodium Chloride) 100 mls @ 100 mls/hr IVPB DAILY [facility] Last Admin: 03/15/17 14:50 Dose: 100 mls/hr Isosorbide Mononitrate (Imdur) 60 mg PO DAILY [facility] Last Admin: 03/15/17 10:47 Dose: 60 mg Lidocaine (Xylocaine 2.5%) 1 applic TOP TID [facility] Metoclopramide HCl (Reglan) 10 mg IVP Q6 PRN PRN Reason: Nausea/Vomiting Metoprolol Succinate (Toprol Xl) 25 mg PO DAILY [facility] Last Admin: 03/15/17 10:44 Dose: 25 mg Morphine Sulfate (Morphine) 2 mg IVP Q4 PRN PRN Reason: Pain, moderate (4-7) Last Admin: 03/15/17 19:54 Dose: 2 mg Morphine Sulfate (Morphine) 4 mg IVP Q4 PRN PRN Reason: Pain, severe (8-10) Last Admin: 03/15/17 23:58 Dose: 4 mg Tiotropium [place] (Spiriva) 18 mcg IH HS [facility] Last Admin: 03/15/17 21:25 Dose: 18 mcg - Labs Labs: 03/15/17 05:20 03/15/17 05:20 Assessment and Plan - Assessment and Plan (Free Text) Plan: 86 years old female with hx of A fib, HTN, CHF, COPD on home Oxygen was sent to the ED by Dr [facility], for evaluation of a worsening abdominal pain of a weeks duration. The pain is sharp, intermittent and located at the Epigastrium and LUQ, associated with nausea, retching. No diarrhea, dysuria, urinary frequency nor fever. Today patient states she is unable to take any PO due to intractable nausea. Will place patient in IVF and reglan, and continue to monitor overnight. Abdominal Pain LUQ and epigastrium Intractable Nausea Inability to take PO - patient states she is unable to take any PO due to intractable nausea. Will place patient in IVF and reglan, and continue to monitor overnight. - negative CT abdomen/Pelvis. No rash to indicated Herpes Zoster, Amylase is normal and no hx of Pancreatitis, No evidence for Gastroparesis. The patient was constipated but no mention of abundant stool or stool impaction. The patient has a hx of gastritis. - Follow US of the RUQ, neg for acute pathology - Pepcid Q12 - Zofran IV -Pain management with Morphine #. Leukocytosis - resolved #. UTI - Urine culture - Rocephin complete 3 days #. Chronic COPD on Home Oxygen Consult Dr Bettencourt Pulmonary - Continue Albuterol nebulizer - Spiriva - O2 Via Nasal Cannula #. CKD III with mild dehydration - IV Fluids - Follow Renal labs #. A Fib rate controlled - Metoprolol/ Digoxin #. Chronic CHF Systolic and Diastolic dysfunction - Consult Dr vasquez - Metoprolol -isosorbide Mononitrate #. Hyponatremia - IV Normal Saline #.Gastritis - Pepcid Q12 #. DVT Prophylaxis with Lovenox #. Code Status: Full
[2017-03-16] MEDS: Divalproex 125 mg Sprinkle Capsule PO SCH ×2 (09:30→17:00)
[2017-03-16] MEDS: Metoprolol Succinate 25 mg XL Tab PO SCH (09:31)
[2017-03-16] MEDS: Digoxin 125 mcg (0.125 mg) Tab PO SCH (09:31)
[2017-03-16] MEDS: Enoxaparin 30 mg Syringe SC SCH (09:33)
--- NOTE | 2017-03-16 11:12 | CARD ---
APPROVED REPORT EKG Measurement Heart [id number] <Conclusion> Atrial fibrillation Left axis deviation Nonspecific intraventricular block Abnormal ECG
--- NOTE | 2017-03-16 11:14 | CP.PCM.PN ---
Subjective - Date & Time of Evaluation Date of Evaluation: 03/16/17 Time of Evaluation: 11:14 - Subjective Subjective: Seen on morning rounds in telemetry. Remains tremulous and anxious (gen'l). Vitals are stable, but she remains hypertensive. No vomiting, but complains of nausea. Still complains of pain in the lower back, the upper abdomen and the chest. There is no chest wall tenderness on palpation. Breath sounds are very much diminished universally. Scattered rhonchi and dry rales in the lower lobes bilaterally. No audible wheezing. Abdomen is slightly firm with hyperactive bowel sounds, no palpable mass. No cyanosis or dependant edema. No labs today. Remains on IVF and antibiotics. Objective - Vital Signs/Intake and Output Vital Signs (last 24 hours): Temp Pulse Resp BP Pulse Ox 98.2 F 66 18 133/60 92 L 03/16/17 10:00 03/16/17 10:00 03/16/17 10:00 03/16/17 10:00 03/16/17 10:00 Intake and Output: 03/15/17 03/16/17 23:59 11:59 Intake Total 1550 Balance 1550 - Medications Medications: Current Medications Acetaminophen (Tylenol 325mg Tab) 650 mg PO Q4 PRN PRN Reason: Headache Last Admin: 03/15/17 07:33 Dose: 650 mg Albuterol Sulfate (Albuterol 0.083% Inhal [place] (2.5 Mg/3 Ml) Ud) 2.5 mg INH RQ6 JAQUI Last Admin: 03/16/17 07:56 Dose: 2.5 mg Albuterol Sulfate (Albuterol 0.083% Inhal [place] (2.5 Mg/3 Ml) Ud) 2.5 mg INH RQ2 PRN PRN Reason: Shortness of Breath Amlodipine Besylate (Norvasc) 10 mg PO DAILY [facility] Last Admin: 03/16/17 09:32 Dose: 10 mg Aspirin (Ecotrin) 81 mg PO DAILY [facility] Last Admin: 03/16/17 09:30 Dose: 81 mg Atorvastatin Calcium (Lipitor) 40 mg PO HS [facility] Last Admin: 03/15/17 21:25 Dose: 40 mg Dicyclomine HCl (Bentyl) 20 mg PO DAILY PRN PRN Reason: abdominal cramping Last Admin: 03/15/17 10:49 Dose: 20 mg Digoxin (Lanoxin) 0.125 mg PO DAILY [facility] Last Admin: 03/16/17 09:31 Dose: 0.125 mg Divalproex Sodium (Depakote Sprinkles) 125 mg PO BID [facility] Last Admin: 03/16/17 09:30 Dose: 125 mg Docusate Sodium (Colace) 200 mg PO TID [facility] Last Admin: 03/16/17 09:30 Dose: 200 mg Enoxaparin Sodium (Lovenox) 30 mg SC DAILY [facility] PRN Reason: Protocol Last Admin: 03/16/17 09:33 Dose: 30 mg Famotidine (Pepcid) 20 mg IVP Q12 [facility] Last Admin: 03/16/17 09:36 Dose: 20 mg Hydrochlorothiazide (Hydrodiuril) 25 mg PO DAILY [facility] Last Admin: 03/16/17 09:32 Dose: 25 mg Ceftriaxone Sodium 1 gm/ (Sodium Chloride) 100 mls @ 100 mls/hr IVPB DAILY [facility] Last Admin: 03/16/17 09:34 Dose: 100 mls/hr Isosorbide Mononitrate (Imdur) 60 mg PO DAILY [facility] Last Admin: 03/16/17 09:32 Dose: 60 mg Lidocaine (Xylocaine 2.5%) 1 applic TOP TID [facility] Metoclopramide HCl (Reglan) 10 mg IVP Q6 PRN PRN Reason: Nausea/Vomiting Metoprolol Succinate (Toprol Xl) 25 mg PO DAILY [facility] Last Admin: 03/16/17 09:31 Dose: 25 mg Morphine Sulfate (Morphine) 2 mg IVP Q4 PRN PRN Reason: Pain, moderate (4-7) Last Admin: 03/16/17 09:51 Dose: 2 mg Morphine Sulfate (Morphine) 4 mg IVP Q4 PRN PRN Reason: Pain, severe (8-10) Last Admin: 03/15/17 23:58 Dose: 4 mg Sucralfate (Carafate Oral Susp) 1 gm PO QID [facility] Tiotropium [place] (Spiriva) 18 mcg IH HS [facility] Last Admin: 03/15/17 21:25 Dose: 18 mcg - Labs Labs: 03/15/17 05:20 03/15/17 05:20 Assessment and Plan (1) Abdominal pain Status: Acute (2) COPD (chronic obstructive pulmonary disease) Status: Chronic (3) Lung nodule Status: Chronic (4) Pyuria Status: Acute (5) Electrolyte imbalance Status: Acute
--- NOTE | 2017-03-16 12:21 | CP.PCM.PN ---
Subjective - Date & Time of Evaluation Date of Evaluation: 03/16/17 Time of Evaluation: 11:30 - Subjective Subjective: STILL WITH ON AND OFF ABDOMINAL PAIN Objective - Vital Signs/Intake and Output Vital Signs (last 24 hours): Temp Pulse Resp BP Pulse Ox 98 F 63 18 144/70 99 03/16/17 12:06 03/16/17 12:06 03/16/17 12:06 03/16/17 12:06 03/16/17 12:06 - Medications Medications: Current Medications Acetaminophen (Tylenol 325mg Tab) 650 mg PO Q4 PRN PRN Reason: Headache Last Admin: 03/15/17 07:33 Dose: 650 mg Albuterol Sulfate (Albuterol 0.083% Inhal [place] (2.5 Mg/3 Ml) Ud) 2.5 mg INH RQ6 [facility]QU[facility] Last Admin: 03/16/17 07:56 Dose: 2.5 mg Albuterol Sulfate (Albuterol 0.083% Inhal [place] (2.5 Mg/3 Ml) Ud) 2.5 mg INH RQ2 PRN PRN Reason: Shortness of Breath Amlodipine Besylate (Norvasc) 10 mg PO DAILY [facility] Last Admin: 03/16/17 09:32 Dose: 10 mg Aspirin (Ecotrin) 81 mg PO DAILY [facility] Last Admin: 03/16/17 09:30 Dose: 81 mg Atorvastatin [place]cium (Lipitor) 40 mg PO HS [facility] Last Admin: 03/15/17 21:25 Dose: 40 mg Dicyclomine HCl (Bentyl) 20 mg PO DAILY PRN PRN Reason: abdominal cramping Last Admin: 03/15/17 10:49 Dose: 20 mg Digoxin (Lanoxin) 0.125 mg PO DAILY [facility] Last Admin: 03/16/17 09:31 Dose: 0.125 mg Divalproex Sodium (Depakote Sprinkles) 125 mg PO BID [facility] Last Admin: 03/16/17 09:30 Dose: 125 mg Docusate Sodium (Colace) 200 mg PO TID [facility] Last Admin: 03/16/17 09:30 Dose: 200 mg Enoxaparin Sodium (Lovenox) 30 mg SC DAILY [facility] PRN Reason: Protocol Last Admin: 03/16/17 09:33 Dose: 30 mg Famotidine (Pepcid) 20 mg IVP Q12 [facility] Last Admin: 03/16/17 09:36 Dose: 20 mg Hydrochlorothiazide (Hydrodiuril) 25 mg PO DAILY [facility] Last Admin: 03/16/17 09:32 Dose: 25 mg Ceftriaxone Sodium 1 gm/ (Sodium Chloride) 100 mls @ 100 mls/hr IVPB DAILY [facility] Last Admin: 03/16/17 09:34 Dose: 100 mls/hr Isosorbide Mononitrate (Imdur) 60 mg PO DAILY [facility] Last Admin: 03/16/17 09:32 Dose: 60 mg Lidocaine (Xylocaine 2.5%) 1 applic TOP TID [facility] Metoclopramide HCl (Reglan) 10 mg IVP Q6 PRN PRN Reason: Nausea/Vomiting Last Admin: 03/16/17 11:36 Dose: 10 mg Metoprolol Succinate (Toprol Xl) 25 mg PO DAILY [facility] Last Admin: 03/16/17 09:31 Dose: 25 mg Morphine Sulfate (Morphine) 2 mg IVP Q4 PRN PRN Reason: Pain, moderate (4-7) Last Admin: 03/16/17 09:51 Dose: 2 mg Morphine Sulfate (Morphine) 4 mg IVP Q4 PRN PRN Reason: Pain, severe (8-10) Last Admin: 03/15/17 23:58 Dose: 4 mg Sucralfate (Carafate Oral Susp) 1 gm PO QID [facility] Tiotropium [place] (Spiriva) 18 mcg IH HS [facility] Last Admin: 03/15/17 21:25 Dose: 18 mcg - Labs Labs: 03/15/17 05:20 03/15/17 05:20 - Respiratory Exam Respiratory Exam: Clear to Ausculation Bilateral - Cardiovascular Exam Cardiovascular Exam: Irregular Rhythm, +S1, +S2 - GI/Abdominal Exam GI & Abdominal Exam: Soft, Normal Bowel Sounds - Extremities Exam Extremities Exam: Normal Inspection - Additional Findings Additional findings: CONTINUE PRESENT MEDICAL REGIMEN
[2017-03-16] MEDS: Sucralfate 1 gm/10 ml Oral Susp UD PO SCH ×3 (12:48→21:37)
[2017-03-16] MEDS: Potassium Ch 20mEq in D5-1/2NS 1,000 ML IV SCH (17:02)
[2017-03-16] MEDS: Tiotropium 18 mcg Cap For Inhalation IH SCH (21:35)
[2017-03-17] MEDS: Albuterol 0.083% Inhal Sol (2.5 mg/3 mL) UD INH SCH ×2 (01:05→07:50)
[2017-03-17] MEDS: Potassium Ch 20mEq in D5-1/2NS 1,000 ML IV SCH (03:45)
[2017-03-17 06:33] LABS: BLOOD UREA NITROGEN 10 mg/dl (7-17); CALCIUM 9.8 mg/dL (8.4-10.2); CARBON DIOXIDE 34 mmol/L (22-30); CHLORIDE 88 mmol/L (98-107); GFR AFRICAN-AMERICAN > 60; GLUCOSE,RANDOM 119 mg/dL (65-105); SODIUM 136 mmol/l (132-148)
[2017-03-17 06:34] LABS: HEMATOCRIT 35.6 % (34.0-47.0); MEAN CELL VOLUME 83.4 fl (81.0-99.0); MEAN CORPUSCULAR HEMOGLOBIN 27.1 pg (27.0-31.0); MEAN CORPUSCULAR HGB CONC 32.6 g/dL (33.0-37.0); RED CELL DISTRIBUTION WIDTH 14.9 % (11.5-14.5); WHITE BLOOD COUNT 8.3 K/uL (4.8-10.8)
[2017-03-17] MEDS: Sucralfate 1 gm/10 ml Oral Susp UD PO SCH ×2 (08:59→12:01)
[2017-03-17] MEDS: Enoxaparin 30 mg Syringe SC SCH (08:59)
[2017-03-17] MEDS: Metoprolol Succinate 25 mg XL Tab PO SCH (09:00)
[2017-03-17] MEDS: Divalproex 125 mg Sprinkle Capsule PO SCH (09:01)
[2017-03-17] MEDS: Digoxin 125 mcg (0.125 mg) Tab PO SCH (09:01)
[2017-03-17 09:02] VITALS: PULSE 84
--- NOTE | 2017-03-17 09:36 | CP.PCM.DIS ---
Provider - Provider Date of Admission: 03/15/17 13:22 Attending physician: Jung Rhoades Time Spent in preparation of Discharge (in minutes): 30 Hospital Course - Lab Results Lab Results: Micro Results 03/15/17 08:59 Urine Urine Culture - Final No Growth (<1,000 CFU/ML) Most Recent Lab Values WBC 8.3 K/uL (4.8-10.8) 03/17/17 05:25 RBC 4.27 Mil/uL (3.80-5.20) 03/17/17 05:25 Hgb 11.6 g/dL (12.0-16.0) L 03/17/17 05:25 Hct 35.6 % (34.0-47.0) 03/17/17 05:25 MCV 83.4 fl (81.0-99.0) 03/17/17 05:25 MCH 27.1 pg (27.0-31.0) 03/17/17 05:25 MCHC 32.6 g/dL (33.0-37.0) L 03/17/17 05:25 RDW 14.9 % (11.5-14.5) H 03/17/17 05:25 Plt Count 340 K/uL (130-400) 03/17/17 05:25 MPV 6.9 fl (7.2-11.7) L 03/15/17 05:20 Neut % (Auto) 78.9 % (50.0-75.0) H 03/15/17 05:20 Lymph % (Auto) 11.9 % (20.0-40.0) L 03/15/17 05:20 [place] % (Auto) 7.9 % (0.0-10.0) 03/15/17 05:20 Eos % (Auto) 1.0 % (0.0-4.0) 03/15/17 05:20 Baso % (Auto) 0.3 % (0.0-2.0) 03/15/17 05:20 Neut # 7.6 K/uL (1.8-7.0) H 03/15/17 05:20 Lymph # 1.1 K/uL (1.0-4.3) 03/15/17 05:20 [place] # 0.8 K/uL (0.0-0.8) 03/15/17 05:20 Eos # 0.1 K/uL (0.0-0.7) 03/15/17 05:20 Baso # 0.0 K/uL (0.0-0.2) 03/15/17 05:20 Sodium 136 mmol/l (132-148) 03/17/17 05:25 Potassium 4.0 MMOL/L (3.6-5.0) 03/17/17 05:25 Chloride 88 mmol/L (98-107) L 03/17/17 05:25 Carbon Dioxide 34 mmol/L (22-30) H 03/17/17 05:25 Anion Gap 18 (10-20) 03/17/17 05:25 BUN 10 mg/dl (7-17) 03/17/17 05:25 Creatinine 1.0 mg/dL (0.7-1.2) 03/17/17 05:25 Est GFR ( Amer) > 60 03/17/17 05:25 Est GFR (Non-Af Amer) 53 03/17/17 05:25 Random Glucose 119 mg/dL (65-105) H 03/17/17 05:25 Calcium 9.8 mg/dL (8.4-10.2) 03/17/17 05:25 Total Bilirubin 0.8 mg/dl (0.2-1.3) 03/14/17 19:05 AST 30 U/L (14-36) 03/14/17 19:05 ALT 30 U/L (9-52) 03/14/17 19:05 Alkaline Phosphatase 72 U/L (38-126) 03/14/17 19:05 Total Protein 7.6 G/DL (6.3-8.2) 03/14/17 19:05 Albumin 4.6 g/dL (3.5-5.0) 03/14/17 19:05 Globulin 3.0 gm/dL (2.2-3.9) 03/14/17 19:05 Albumin/Globulin Ratio 1.5 (1.0-2.1) 03/14/17 19:05 Lipase 45 U/L (23-300) 03/14/17 19:05 Urine Color Yellow (YELLOW) 03/14/17 19:05 Urine Clarity Cloudy (Clear) 03/14/17 19:05 Urine pH 5.0 (5.0-8.0) 03/14/17 19:05 Ur Specific [place] 1.021 (1.003-1.030) 03/14/17 19:05 Urine Protein 100 mg/dL (NEGATIVE) 03/14/17 19:05 Urine Glucose (UA) Neg mg/dL (Normal) 03/14/17 19:05 Urine Ketones Negative mg/dL (NEGATIVE) 03/14/17 19:05 Urine Blood Small (NEGATIVE) 03/14/17 19:05 Urine Nitrate Negative (NEGATIVE) 03/14/17 19:05 Urine Bilirubin Negative (NEGATIVE) 03/14/17 19:05 Urine Urobilinogen 0.2-1.0 mg/dL (0.2-1.0) 03/14/17 19:05 Ur Leukocyte Esterase Large [place]/uL (Negative) 03/14/17 19:05 Urine RBC (Auto) 10 /hpf (0-3) H 03/14/17 19:05 Urine Microscopic WBC 51 /hpf (0-5) H 03/14/17 19:05 Ur Squamous Epith Cells 3 /hpf (0-5) 03/14/17 19:05 Urine Bacteria Occ (<OCC) H 03/14/17 19:05 Hyaline Casts 3-5 /hpf (0-2) H 03/14/17 19:05 Digoxin 1.4 ng/mL (0.8-2.0) 03/15/17 05:20 - Hospital Course Hospital Course: 86 years old female with hx of A fib, HTN, CHF, COPD on home Oxygen was sent to the ED by Dr [facility], for evaluation of a worsening abdominal pain of a weeks duration. The pain is sharp, intermittent and located at the Epigastrium and LUQ, associated with nausea, retching. No diarrhea, dysuria, urinary frequency nor fever. Yesterday patient was not tolerating PO, however today after hydration and switching antinausea medication to Reglan, patient is feeling improved. Abdominal Pain LUQ and epigastrium Intractable Nausea Inability to take PO improved with reglan, initiated celebrex for "bone pain" everywhere patient does complain of some abdominal pain and "bone pain everywhere" as well , but this is likely has a large psychological component and less likely intraabdominal process as all imaging studies and blood work have been negative - negative CT abdomen/Pelvis. No rash to indicated Herpes Zoster, Amylase is normal and no hx of Pancreatitis, No evidence for Gastroparesis. The patient was constipated but no mention of abundant stool or stool impaction. The patient has a hx of gastritis. - Follow US of the RUQ, neg for acute pathology - Pepcid Q12, carafate - Zofran -Pain management with celebrex, d/c all narcotics - pt may see Dr. Cortez again for pain management Leukocytosis - resolved UTI - Urine culture - Rocephin complete 3 days Chronic COPD on Home Oxygen Consult Dr Bettencourt Pulmonary - Continue Albuterol nebulizer - Spiriva - O2 Via Nasal Cannula CKD III with mild dehydration - IV Fluids - Follow Renal labs A Fib rate controlled - Metoprolol/ Digoxin Chronic CHF Systolic and Diastolic dysfunction - Consult Dr vasquez - Metoprolol -isosorbide Mononitrate Hyponatremia - IV Normal Saline Gastritis - Pepcid Q12 DVT Prophylaxis with Lovenox Code Status: Full Discharge Exam - Head Exam Head Exam: ATRAUMATIC, NORMAL INSPECTION, NORMOCEPHALIC - Eye Exam Eye Exam: EOMI, Normal appearance, PERRL Pupil Exam: NORMAL ACCOMODATION - ENT Exam ENT Exam: Mucous Membranes Moist, Normal Oropharynx - Respiratory Exam Respiratory Exam: Clear to PA & Lateral, NORMAL BREATHING PATTERN - Cardiovascular Exam Cardiovascular Exam: RRR, +S1, +S2 - GI/Abdominal Exam GI & Abdominal Exam: Normal Bowel Sounds, Soft. absent: Mass, Organomegaly, Tenderness - Extremities Exam Extremities exam: normal capillary refill, pedal pulses present - Back Exam Back exam: absent: CVA tenderness (L), CVA tenderness (R) - Neurological Exam Neurological exam: Alert, Oriented x3 - Psychiatric Exam Psychiatric exam: Normal Affect, Normal Mood - Skin Skin Exam: Dry, Warm Discharge Plan - Discharge Medications Prescriptions: amLODIPine [Norvasc] 10 mg PO DAILY #30 tab Aspirin [Ecotrin] 81 mg PO DAILY #30 tabec Atorvastatin [Lipitor] 40 mg PO HS #30 tab Celecoxib [celeBREX] 200 mg PO Q12 #60 cap Dicyclomine [Bentyl] 20 mg PO DAILY PRN #30 tab PRN Reason: abdominal cramping Digoxin [Digitek] 125 mcg PO DAILY #30 tablet Divalproex [Depakote Sprinkles] 125 mg PO BID #60 capsule Docusate [Colace] 200 mg PO TID #90 cap hydroCHLOROthiazide [Hydrodiuril] 25 mg PO DAILY #30 tab Isosorbide Mononitrate [Imdur] 60 mg PO DAILY #30 tab Lidocaine 5% 1 appl TOP TID #1 tube Metoprolol Succinate [Toprol XL] 25 mg PO DAILY #30 tab Sucralfate [Carafate Oral Susp] 1 gm PO QID #30 udc Tiotropium [Spiriva] 18 mcg IH HS #30 cap - Follow Up Plan Condition: STABLE Disposition: HOME/ ROUTINE
--- NOTE | 2017-03-17 10:56 | PQF GENQUE ---
Dr. Андрей Camarillo, Please specify the type of COPD: Stable versus Exacerbation of COPD OR: Other explanation of clinical finding ER:PE: Respiratory: Positive for: Wheezing (chronic bilateral wheeze) H and P: ROS: Respiratory: Dyspnea, Wheezing. absent: Cough, Stridor, Chest Congestion Physical Exam :No Rales but mild wheezing at the upper lungs ER: Albuterol once physician orders for ; Albuterol INH Q6 and Q2 prn O2 This form is a permanent part of the medical record Clarification of your documentation is requested to better reflect the severity of illness and intensity of treatment of your patient. Indicators present [] Specify: [] [] Specify: [] [] Specify: [] [] Specify: [] Location in the medical record that reflects the above clinical findings: [] Treatment Provided: [] PHYSICIAN'S RESPONSE STABLE. Based on your medical judgment of the clinical indicators outlined above please clarify the following: [] Practitioner response [] If unable to determine, please check the box, sign and date. Present On Admission (POA) Indicator: [] Present at the time of admission [] Not present at the time of admission [] Clinically Undetermined In responding to this query, please exercise your independent professional judgment. The fact that a question is asked does not imply that any particular answer is desired or expected. Thank you for your clarification on this documentation. If you have any questions please call. * Thank you, Rowan Schwartz RN ext. #[phone]: Sandy Doran RN MTDD
--- NOTE | 2017-03-17 11:05 | CP.PCM.PN ---
Subjective - Date & Time of Evaluation Date of Evaluation: 03/17/17 Time of Evaluation: 08:30 - Subjective Subjective: NO CHEST PAIN OR SOB LESS ABDOMINAL PAIN Objective - Vital Signs/Intake and Output Vital Signs (last 24 hours): Temp Pulse Resp BP Pulse Ox 98.2 F 84 20 166/73 H 98 03/17/17 10:00 03/17/17 10:00 03/17/17 10:00 03/17/17 10:00 03/17/17 10:00 - Medications Medications: Current Medications Acetaminophen (Tylenol 325mg Tab) 650 mg PO Q4 PRN PRN Reason: Headache Last Admin: 03/15/17 07:33 Dose: 650 mg Albuterol Sulfate (Albuterol 0.083% Inhal Migdalia (2.5 Mg/3 Ml) Ud) 2.5 mg INH RQ6 [facility] Last Admin: 03/17/17 07:50 Dose: 2.5 mg Albuterol Sulfate (Albuterol 0.083% Inhal Migdalia (2.5 Mg/3 Ml) Ud) 2.5 mg INH RQ2 PRN PRN Reason: Shortness of Breath Amlodipine Besylate (Norvasc) 10 mg PO DAILY [facility] Last Admin: 03/17/17 09:00 Dose: 10 mg Aspirin (Ecotrin) 81 mg PO DAILY [facility] Last Admin: 03/17/17 09:00 Dose: 81 mg Atorvastatin Calcium (Lipitor) 40 mg PO HS [facility] Last Admin: 03/16/17 21:34 Dose: 40 mg Celecoxib (Celebrex) 200 mg PO Q12 [facility] Dicyclomine HCl (Bentyl) 20 mg PO DAILY PRN PRN Reason: abdominal cramping Last Admin: 03/17/17 09:01 Dose: 20 mg Digoxin (Lanoxin) 0.125 mg PO DAILY [facility] Last Admin: 03/17/17 09:01 Dose: 0.125 mg Divalproex Sodium (Depakote Sprinkles) 125 mg PO BID [facility] Last Admin: 03/17/17 09:01 Dose: 125 mg Docusate Sodium (Colace) 200 mg PO TID [facility] Last Admin: 03/17/17 08:59 Dose: 200 mg Enoxaparin Sodium (Lovenox) 30 mg SC DAILY [facility] PRN Reason: Protocol Last Admin: 03/17/17 08:59 Dose: 30 mg Famotidine (Pepcid) 20 mg IVP Q12 [facility] Last Admin: 03/17/17 09:18 Dose: 20 mg Hydrochlorothiazide (Hydrodiuril) 25 mg PO DAILY [facility] Last Admin: 03/17/17 09:01 Dose: 25 mg Ceftriaxone Sodium 1 gm/ (Sodium Chloride) 100 mls @ 100 mls/hr IVPB DAILY [facility] Last Admin: 03/17/17 09:10 Dose: 100 mls/hr Potassium Chloride/Dextrose/Sod Cl (Potassium Chl 20 Meq In D5-1/2ns) 1,000 mls @ 100 mls/hr IV .Q10H [facility] Stop: 03/17/17 15:53 Last Admin: 03/17/17 03:45 Dose: 100 mls/hr Isosorbide Mononitrate (Imdur) 60 mg PO DAILY [facility] Last Admin: 03/17/17 08:59 Dose: 60 mg Lidocaine (Xylocaine 2.5%) 1 applic TOP TID [facility] Metoclopramide HCl (Reglan) 10 mg IVP Q6 PRN PRN Reason: Nausea/Vomiting Last Admin: 03/17/17 06:02 Dose: 10 mg Metoprolol Succinate (Toprol Xl) 25 mg PO DAILY [facility] Last Admin: 03/17/17 09:00 Dose: 25 mg Sucralfate (Carafate Oral Susp) 1 gm PO QID [facility] Last Admin: 03/17/17 08:59 Dose: 1 gm Tiotropium [place] (Spiriva) 18 mcg IH HS [facility] Last Admin: 03/16/17 21:35 Dose: 18 mcg - Labs Labs: 03/17/17 05:25 03/17/17 05:25 - Respiratory Exam Respiratory Exam: Clear to Ausculation Bilateral - Cardiovascular Exam Cardiovascular Exam: Irregular Rhythm, +S1, +S2 - Extremities Exam Extremities Exam: Normal Inspection - Additional Findings Additional findings: 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
[2017-03-17] MEDS ORDERED: Metoprolol Succinate 25 mg XL Tab PO STA (11:45)
--- NOTE | 2017-03-17 11:58 | CP.PCM.PN ---
Subjective - Date & Time of Evaluation Date of Evaluation: 03/17/17 Time of Evaluation: 11:55 - Subjective Subjective: Continues to complain of multiple areas of pain. Still anxious and tremulous. She has remained afebrile, and BP has been elevated despite present rx. Urine culture is negative and electrolytes are improved. CBC is stable. Breath sounds are unchanged. Heart sounds are very diminished, status quo. Rhythm is irregular. Abdomen is soft, but bowel sounds are still a little hyperactive. Will increase metoprolol to 50MG daily. Plan is for discharge today. There has been no repeat CT chest as this will not change the therapy ( suspicious HAN nodule). Objective - Vital Signs/Intake and Output Vital Signs (last 24 hours): Temp Pulse Resp BP Pulse Ox 98.2 F 84 20 166/73 H 98 03/17/17 10:00 03/17/17 10:00 03/17/17 10:00 03/17/17 10:00 03/17/17 10:00 - Medications Medications: Current Medications Acetaminophen (Tylenol 325mg Tab) 650 mg PO Q4 PRN PRN Reason: Headache Last Admin: 03/15/17 07:33 Dose: 650 mg Albuterol Sulfate (Albuterol 0.083% Inhal Migdalia (2.5 Mg/3 Ml) Ud) 2.5 mg INH RQ6 [facility] Last Admin: 03/17/17 07:50 Dose: 2.5 mg Albuterol Sulfate (Albuterol 0.083% Inhal Migd[place] (2.5 Mg/3 Ml) Ud) 2.5 mg INH RQ2 PRN PRN Reason: Shortness of Breath Amlodipine Besylate (Norvasc) 10 mg PO DAILY [facility] Last Admin: 03/17/17 09:00 Dose: 10 mg Aspirin (Ecotrin) 81 mg PO DAILY [facility] Last Admin: 03/17/17 09:00 Dose: 81 mg Atorvastatin Calcium (Lipitor) 40 mg PO HS [facility] Last Admin: 03/16/17 21:34 Dose: 40 mg Celecoxib (Celebrex) 200 mg PO Q12 [facility] Dicyclomine HCl (Bentyl) 20 mg PO DAILY PRN PRN Reason: abdominal cramping Last Admin: 03/17/17 09:01 Dose: 20 mg Digoxin (Lanoxin) 0.125 mg PO DAILY [facility] Last Admin: 09/28/17 09:01 Dose: 0.125 mg Divalproex Sodium (Depakote Sprinkles) 125 mg PO BID [facility] Last Admin: 03/17/17 09:01 Dose: 125 mg Docusate Sodium (Colace) 200 mg PO TID [facility] Last Admin: 03/17/17 08:59 Dose: 200 mg Enoxaparin Sodium (Lovenox) 30 mg SC DAILY [facility] PRN Reason: Protocol Last Admin: 03/17/17 08:59 Dose: 30 mg Famotidine (Pepcid) 20 mg IVP Q12 [facility] Last Admin: 03/17/17 09:18 Dose: 20 mg Hydrochlorothiazide (Hydrodiuril) 25 mg PO DAILY [facility] Last Admin: 03/17/17 09:01 Dose: 25 mg Ceftriaxone Sodium 1 gm/ (Sodium Chloride) 100 mls @ 100 mls/hr IVPB DAILY [facility] Last Admin: 03/17/17 09:10 Dose: 100 mls/hr Potassium Chloride/Dextrose/Sod Cl (Potassium Chl 20 Meq In D5-1/2ns) 1,000 mls @ 100 mls/hr IV .Q10H [facility] Stop: 03/17/17 15:53 Last Admin: 03/17/17 03:45 Dose: 100 mls/hr Isosorbide Mononitrate (Imdur) 60 mg PO DAILY [facility] Last Admin: 03/17/17 08:59 Dose: 60 mg Lidocaine (Xylocaine 2.5%) 1 applic TOP TID [facility] Metoclopramide HCl (Reglan) 10 mg IVP Q6 PRN PRN Reason: Nausea/Vomiting Last Admin: 03/17/17 06:02 Dose: 10 mg Metoprolol Succinate (Toprol Xl) 25 mg PO DAILY [facility] Last Admin: 03/17/17 09:00 Dose: 25 mg Sucralfate (Carafate Oral Susp) 1 gm PO QID [facility] Last Admin: 03/17/17 08:59 Dose: 1 gm Tiotropium [place] (Spiriva) 18 mcg IH HS [facility] Last Admin: 03/16/17 21:35 Dose: 18 mcg - Labs Labs: 03/17/17 05:25 03/17/17 05:25 Assessment and Plan (1) Abdominal pain Status: Acute (2) COPD (chronic obstructive pulmonary disease) Status: Chronic (3) Lung nodule Status: Chronic (4) Pyuria Status: Resolved (5) Electrolyte imbalance Status: Resolved
[2017-03-17 12:17] VITALS: BP 152/68; PULSE 77; RESP 18; TEMP 97.7; O2SAT 96
== END 2017-03-17 12:45 | disposition home or self-care (01) | DRG 690 ==
LOC: H.ER 17:33 → H.ERHOLD 03-15 02:52 → H.TEL 03-15 09:26 → OBSVTOIN 03-15 13:22
PROVIDERS: ADMIT Internal Medicine; ATTEND Internal Medicine
PROC: 3E0F7GC Introduction of Other Therapeutic Substance into Respiratory Tract, Via Natural or Artificial Opening (ICD-10-PCS; principal; 2017-03-15)
DX: N39.0 Urinary tract infection, site not specified (principal); I13.0 Hypertensive heart and chronic kidney disease with heart failure and stage 1 through stage 4 chronic kidney disease, or unspecified chronic kidney disease; I50.42 Chronic combined systolic (congestive) and diastolic (congestive) heart failure; E87.1 Hypo-osmolality and hyponatremia; I42.9 Cardiomyopathy, unspecified; Z99.81 Dependence on supplemental oxygen; J44.9 Chronic obstructive pulmonary disease, unspecified; I48.2 Chronic atrial fibrillation; R10.12 Left upper quadrant pain; E86.0 Dehydration; N18.3 Chronic kidney disease, stage 3 (moderate); E78.5 Hyperlipidemia, unspecified; I71.2 Thoracic aortic aneurysm, without rupture; I25.10 Atherosclerotic heart disease of native coronary artery without angina pectoris; K29.70 Gastritis, unspecified, without bleeding; M81.0 Age-related osteoporosis without current pathological fracture; K59.00 Constipation, unspecified; I71.4 Abdominal aortic aneurysm, without rupture; D64.9 Anemia, unspecified; D72.829 Elevated white blood cell count, unspecified; N28.1 Cyst of kidney, acquired; R10.13 Epigastric pain; R91.1 Solitary pulmonary nodule; F41.9 Anxiety disorder, unspecified; Z87.891 Personal history of nicotine dependence; Z79.82 Long term (current) use of aspirin; Z87.01 Personal history of pneumonia (recurrent); Z90.49 Acquired absence of other specified parts of digestive tract

== ENCOUNTER 2017-05-14 14:46 | Emergency (ER) | payer MEDICARE, MEDICAID ==
[2017-05-14 14:46] VITALS: PULSE 84
[2017-05-14] MEDS ORDERED: Morphine 4 MG/ML VIAL IV STA (16:13)
[2017-05-14] MEDS ORDERED: Morphine 4 MG/ML VIAL ONE (16:18)
[2017-05-14 17:28] LABS: BASO # 0.1 K/uL (0.0-0.2); BASO % 0.5 % (0.0-2.0); EOS # 0.4 K/uL (0.0-0.7); EOS % 3.2 % (0.0-4.0); HEMATOCRIT 36.2 % (34.0-47.0); LYMPH # 0.9 K/uL (1.0-4.3); LYMPH % 7.9 % (20.0-40.0); MEAN CELL VOLUME 80.9 fl (81.0-99.0); MEAN CORPUSCULAR HEMOGLOBIN 25.6 pg (27.0-31.0); MEAN CORPUSCULAR HGB CONC 31.7 g/dL (33.0-37.0); MEAN PLATELET VOLUME 7.5 fl (7.2-11.7); MONO # 1.5 K/uL (0.0-0.8); MONO % 13.6 % (0.0-10.0); NEUT # 8.5 K/uL (1.8-7.0); NEUT % 74.8 % (50.0-75.0); NRBC % 0.1 % (0.0-0.0); PLATELET COUNT 446 K/uL (130-400); RED CELL DISTRIBUTION WIDTH 14.4 % (11.5-14.5); WHITE BLOOD COUNT 11.3 K/uL (4.8-10.8)
[2017-05-14 17:40] LABS: ALB/GLOB RATIO 1.1 (1.0-2.1); BILIRUBIN,TOTAL 0.7 mg/dl (0.2-1.3); CALCIUM 10.3 mg/dL (8.4-10.2); POTASSIUM 5.1 MMOL/L (3.6-5.0); TOTAL PROTEIN 7.9 G/DL (6.3-8.2)
[2017-05-14] MEDS ORDERED: Sodium Chloride 0.9% 1,000 ML IV STA (17:44)
[2017-05-14 17:51] LABS: TROPONIN I 0.021 ng/mL (0.00-0.120)
[2017-05-14 17:53] LABS: PARTIAL THROMBOPLASTIN TIME 33.1 Seconds (25.6-37.1)
--- NOTE | 2017-05-14 17:59 | ED PDOC ---
HPI: Abdomen Time Seen by Provider: 05/14/17 14:57 Chief Complaint (Nursing): Chest Pain Chief Complaint (Provider): Abdominal Cramping History Per: Patient History/Exam Limitations: no limitations Onset/Duration Of Symptoms: Days Outside of [place] travel?: No Current Symptoms Are (Timing): Still Present Pain Scale Rating Of: 4 Quality Of Discomfort: Cramping Associated Symptoms: Nausea, Chest Pain. denies: Fever Exacerbating Factors: None Alleviating Factors: None Additional Complaint(s): Sana Corcoran, an 86 year old female, with a past medical history of cardiac arrhythmia, coronary artery disease and congestive heart failure presents to the ED complaining of abdominal cramping. Patient notes some associated nausea but denies vomiting and fever. As per patient, she is also experiencing left rib pain and left sided chest pain. Patient reports that she was evaluated by Dr. De Oliveira for surgery but no cholecystectomy was preferred due to her age. PMD: Fidencio Huston Abnormal Vaginal Bleeding: No Past Medical History Reviewed: Historical Data, Nursing Documentation, Vital Signs Vital Signs: Last Vital Signs Temp 97.8 F 05/14/17 20:20 Pulse 74 05/14/17 20:20 Resp 18 05/14/17 20:20 BP 154/72 H 05/14/17 20:20 Pulse Ox 100 05/14/17 20:20 - Medical History PMH: Anemia, Anxiety, Arthritis, Atrial Fibrillation, CAD, Cardia Arrhythmia, CHF, COPD, Diverticulitis, Gastritis, HTN, Hypercholesterolemia, Osteoporosis, Pneumonia, Chronic Kidney Disease (CKD stage 3) Denies: Asthma, Bronchitis, Emphysema, HIV, Hypothyroidism, Mitral Valve Prolapse, Peripheral Edema, Pulmonary Embolism, Rheumatoid Arthritis, Sleep Apnea - Surgical History Surgical History: Appendectomy Denies: Pacemaker - Family History Family History: States: Unknown Family Hx - Social History Current smoker - smoking cessation education provided: No (Former Smoker) Ex-Smoker (has not smoked in the last 12 months): Yes Alcohol: None Drugs: Denies - Home Medications Home Medications: Ambulatory Orders Medication Instructions Recorded Acetaminophen with Codeine 1 tab PO Q4H PRN 07/30/16 [Tylenol with Codeine #3 Tablet] Albuterol Sulfate [Proair Hfa] 2 puff IH Q4H PRN 07/30/16 Alprazolam [Xanax] 0.5 mg PO TID 07/30/16 Calcitonin,[place],Synthetic 1 spray KRISSY DAILY 07/30/16 [Calcitonin-[place]] Fluticasone Propionate [Flonase] 2 spray KRISSY DAILY 07/30/16 Levalbuterol [Xopenex] 0.63 mg IH Q8H PRN 07/30/16 Ondansetron [Zofran Tab] 4 mg PO DAILY PRN 07/30/16 Famotidine [Pepcid] 20 mg PO BID PRN 01/17/17 Multivitamin/Iron/Folic Acid 1 tab PO DAILY 01/17/17 [Centrum Women Tablet] Pantoprazole Sodium [Protonix] 40 mg PO DAILY 01/17/17 Phenobarb/Hyoscy/Atropine/Scop 1 tab PO DAILY 01/17/17 [ Tablet] Aspirin [Ecotrin] 81 mg PO DAILY #30 tabec 03/17/17 Atorvastatin [Lipitor] 40 mg PO HS #30 tab 03/17/17 Celecoxib [celeBREX] 200 mg PO Q12 #60 cap 03/17/17 Dicyclomine [Bentyl] 20 mg PO DAILY PRN #30 tab 03/17/17 Digoxin [Digitek] 125 mcg PO DAILY #30 tablet 03/17/17 Divalproex [Depakote Sprinkles] 125 mg PO BID #60 capsule 03/17/17 Docusate [Colace] 200 mg PO TID #90 cap 03/17/17 Isosorbide Mononitrate [Imdur] 60 mg PO DAILY #30 tab 03/17/17 Lidocaine 5% 1 appl TOP TID #1 tube 03/17/17 Metoprolol Succinate [Toprol XL] 25 mg PO DAILY #30 tab 03/17/17 Sucralfate [Carafate Oral Susp] 1 gm PO QID #30 udc 03/17/17 Tiotropium [Spiriva] 18 mcg IH HS #30 cap 03/17/17 amLODIPine [Norvasc] 10 mg PO DAILY #30 tab 03/17/17 hydroCHLOROthiazide [Hydrodiuril] 25 mg PO DAILY #30 tab 03/17/17 - Allergies Allergies/Adverse Reactions: Allergies Allergy/AdvReac Type Severity Reaction Status Date / Time No Known Allergies Allergy Verified 07/30/16 16:17 Review of Systems ROS Statement: Except As Marked, All Systems Reviewed And Found Negative Constitutional: Negative for: Fever Cardiovascular: Positive for: Chest Pain (left chest pain) Respiratory: Positive for: Other (left rib pain) Gastrointestinal: Positive for: Nausea (minimal), Abdominal Pain (abdominal cramping). Negative for: Vomiting Physical Exam - Reviewed Nursing Documentation Reviewed: Yes Vital Signs Reviewed: Yes - Physical Exam Appears: Positive for: Non-toxic, No Acute Distress Head Exam: Positive for: ATRAUMATIC, NORMAL INSPECTION, NORMOCEPHALIC Skin: Positive for: Normal Color, Warm, Dry. Negative for: Rash Eye Exam: Positive for: Normal appearance, EOMI, PERRL. Negative for: Nystagmus ENT: Positive for: Normal ENT Inspection. Negative for: Nasal Congestion, Tonsillar Exudate Neck: Positive for: Normal, Painless ROM, Supple Cardiovascular/Chest: Positive for: Regular Rate, Rhythm, Chest Non Tender. Negative for: Tachycardia Respiratory: Positive for: Normal Breath Sounds. Negative for: Rales, Rhonchi, Wheezing, Respiratory Distress Gastrointestinal/Abdominal: Positive for: Normal Exam, Bowel Sounds, Soft, Tenderness (generalized tenderness). Negative for: Guarding, Rebound Back: Positive for: Normal Inspection. Negative for: L CVA Tenderness, R CVA Tenderness Extremity: Positive for: Normal ROM. Negative for: Tenderness, Deformity, Swelling Lymphatic: Positive for: Normal Exam. Negative for: Adenopathy Neurologic/Psych: Positive for: Alert, Oriented, Gait. Negative for: Motor/ Sensory Deficits - Laboratory Results Result Diagrams: 05/14/17 17:22 05/14/17 17:22 - ECG O2 Sat by Pulse Oximetry: 100 (RA) Pulse Ox Interpretation: Normal Medical Decision Making Medical Decision Makin Initial Impression: 86 y/o female presenting with chest pain and abdominal pain Initial Plan: * CT ABD&PELV IV Contrast * EKG * CMP * Lipase * Troponin * Udip * CBC * PTT * Prothrombin Time * Chest x-ray * Morphine 2mg IV * NS 1000mL IV 125 mls/hr * Zofran 4mg IV * Urinalysis * Reevaluation Patient signed out to Dr. Arredondo at 1900 pending imaging. - Scribe Attestation Documented by Kristal Ferguson acting as a scribe for Magalys Padilla MD. Provider Attestation: All medical record entries made by the Scribe were at my direction and personally dictated by me. I have reviewed the chart and agree that the record accurately reflects my personal performance of the history, physical exam, medical decision making, and the department course for this patient. I have also personally directed, reviewed, and agree with the discharge instructions and disposition. Disposition - Clinical Impression Clinical Impression: Abdominal pain - Patient ED Disposition Is Patient to be Admitted: Transfer of Care - Disposition Referrals: Fidencio Basurto MD [Primary Care Provider] - Disposition: Transfer of Care Disposition Time: 19:00 Condition: STABLE Instructions: Abdominal Pain (ED) Forms: [facility] [employer] [facility] (Armenian) Patient Signed Over To: Marcel Arredondo Present On Arrival: None
[2017-05-14] MEDS ORDERED: Sodium Chloride 0.9% 50 ML IV ONE (18:35)
[2017-05-14] MEDS ORDERED: Iohexol 300 100 ML IJ ONE (18:35)
[2017-05-14 18:42] LABS: BASOPHIL 1 % (0-2); EOSINOPHIL 4 % (0-7); NEUTROPHIL 76 % (42-75); REACTIVE LYMPHOCYTES 1 % (0-0); TOTAL CELLS COUNTED 100
--- NOTE | 2017-05-14 19:02 | ED PDOC ---
- Laboratory Results Result Diagrams: 05/14/17 17:22 05/14/17 17:22 - ECG O2 Sat by Pulse Oximetry: 100 (RA) Pulse Ox Interpretation: Normal Medical Decision Making Medical Decision Making: Patient signed out to provider at [address] Padilla pending imaging. [address] CT Abdomen and Pelvis With Intravenous Contrast COMPARISON: CT - ABD PELVIS PO CONTRAST ONLY 2017-03-14 22:06 FINDINGS: Limitations: Motion artifact - mild. Lower thorax: Mild cardiomegaly. Few nodules vs volume averaging, up to 0.4 cm. Minimal atelectasis/scarring. ABDOMEN: Liver: Possible mild fatty infiltration. Few enhancing lesions, up to 0.6 cm. Gallbladder and bile ducts: No calcified stones. No ductal dilation. Pancreas: No ductal dilation. No mass. Spleen: No splenomegaly. Adrenals: No mass. Kidneys and ureters: Probable RIGHT renal cyst. Few too small to characterize lesions within kidneys. No hydronephrosis. Stomach and bowel: Cecum within midline lower abdomen. Few scattered diverticula within colon. No associated inflammatory stranding. No definite mural thickening. No obstruction. Appendix: No findings to suggest acute appendicitis. PELVIS: Bladder: Unremarkable. Reproductive: Unremarkable as visualized. ABDOMEN and PELVIS: Intraperitoneal space: No significant fluid collection. No free air. Bones/joints: Degenerative changes of lower lumbar spine. No acute fracture. Soft tissues: Unremarkable. Vasculature: Mildly prominent vessels within pelvis. Moderate to extensive atherosclerotic disease. Infrarenal abdominal aortic aneurysms, up to 2.6 cm in size. Lymph nodes: No pathologically enlarged lymph nodes. IMPRESSION: 1. Diverticulosis without definite CT evidence of diverticulitis. 2. Liver lesion, indeterminate. Recommend nonemergent MRI. 3. Pulmonary nodules. For low-risk patients, no follow-up is necessary. For high -risk patients (smoking history or other known risk factors) an optional CT at 12 months could be performed. 4. Incidental/non-acute findings are described above 2015 - Reeval Patient reports improvement in symptoms. Patient was offered admission for observation but states she would rather go home instead. She states that her chest pain is due to chronic osteoporosis in her chest wall as well as chronic obstructive pulmonary disease. Upon evaluation patient is medically stable and will be discharged home. Diagnosis: Abdominal Pain Scribe Attestation Documented by Kristal Ferguson acting as a scribe for Marcel Arredondo MD. Provider Attestation: All medical record entries made by the Scribe were at my direction and personally dictated by me. I have reviewed the chart and agree that the record accurately reflects my personal performance of the history, physical exam, medical decision making, and the department course for this patient. I have also personally directed, reviewed, and agree with the discharge instructions and disposition Disposition Counseled Patient/Family Regarding: Studies Performed, Diagnosis - Clinical Impression Clinical Impression: Abdominal pain - POA Present On Arrival: None - Disposition Referrals: Fidencio Basurto MD [Primary Care Provider] - Disposition: Routine/Home Disposition Time: 20:15 Condition: STABLE Instructions: Abdominal Pain (ED) Forms: [facility] (Haitian)
--- NOTE | 2017-05-14 19:36 | CT ---
EXAM: CT Abdomen and Pelvis With Intravenous Contrast CLINICAL HISTORY: 86 years old, female; Pain; Abdominal pain; Generalized; Prior surgery; Surgery date: 6+ months; Surgery type: Appendectomy; Patient HX: Copd former smoker. Cardiac/heart dz HTN dm gastritis diverticulitis; Additional info: Gen abd pain TECHNIQUE: Axial computed tomography images of the abdomen and pelvis with intravenous contrast. All CT scans at this facility use one or more dose reduction techniques, viz.: automated exposure control; ma/kV adjustment per patient size (including targeted exams where dose is matched to indication; i.e. head); or iterative reconstruction technique. Coronal and sagittal reformatted images were created and reviewed. CONTRAST: 98 mL of OMNIPAQUE administered intravenously. COMPARISON: CT - ABD PELVIS PO CONTRAST ONLY 2017-03-14 22:06 FINDINGS: Limitations: Motion artifact - mild. Lower thorax: Mild cardiomegaly. Few nodules vs volume averaging, up to 0.4 cm. Minimal atelectasis/scarring. ABDOMEN: Liver: Possible mild fatty infiltration. Few enhancing lesions, up to 0.6 cm. Gallbladder and bile ducts: No calcified stones. No ductal dilation. Pancreas: No ductal dilation. No mass. Spleen: No splenomegaly. Adrenals: No mass. Kidneys and ureters: Probable RIGHT renal cyst. Few too small to characterize lesions within kidneys. No hydronephrosis. Stomach and bowel: Cecum within midline lower abdomen. Few scattered diverticula within colon. No associated inflammatory stranding. No definite mural thickening. No obstruction. Appendix: No findings to suggest acute appendicitis. PELVIS: Bladder: Unremarkable. Reproductive: Unremarkable as visualized. ABDOMEN and PELVIS: Intraperitoneal space: No significant fluid collection. No free air. Bones/joints: Degenerative changes of lower lumbar spine. No acute fracture. Soft tissues: Unremarkable. Vasculature: Mildly prominent vessels within pelvis. Moderate to extensive atherosclerotic disease. Infrarenal abdominal aortic aneurysms, up to 2.6 cm in size. Lymph nodes: No pathologically enlarged lymph nodes. IMPRESSION: 1. Diverticulosis without definite CT evidence of diverticulitis. 2. Liver lesion, indeterminate. Recommend nonemergent MRI. 3. Pulmonary nodules. For low-risk patients, no follow-up is necessary. For high-risk patients (smoking history or other known risk factors) an optional CT at 12 months could be performed. 4. Incidental/non-acute findings are described above.
[2017-05-14 19:54] VITALS: PULSE 74
[2017-05-14 20:20] VITALS: BP 154/72; RESP 18; TEMP 97.8
[2017-05-14 20:21] VITALS: O2SAT 100
[2017-05-14 20:24] LABS: RBC URINE 2 /hpf (0-3); URINE BILIRUBIN NEGATIVE (NEGATIVE); URINE BLOOD NEGATIVE (NEGATIVE); URINE COLOR YELLOW (YELLOW); URINE GLUCOSE (UA) NEG (Normal); URINE KETONE NEGATIVE (NEGATIVE); URINE LEUKOCYTE ESTERASE TRACE Leu/uL (Negative); URINE PROTEIN 30 mg/dL (NEGATIVE); URINE UROBILINOGEN 0.2-1.0 mg/dL (0.2-1.0)
[2017-05-14 20:26] LABS: URINE BACTERIA RARE (<OCC); WBC URINE 4 /hpf (0-5)
--- NOTE | 2017-05-15 07:11 | RAD ---
HISTORY: CP COMPARISON: 03/14/2017 FINDINGS: LUNGS: 16 millimeter nodule in the left apex for which correlation with CT scan of the chest is recommended. PLEURA: No significant pleural effusion identified, no pneumothorax apparent. CARDIOVASCULAR: Normal. OSSEOUS STRUCTURES: No significant abnormalities. VISUALIZED UPPER ABDOMEN: Normal. OTHER FINDINGS: None. IMPRESSION: 16 millimeter nodule in the left apex for which correlation with CT scan of the chest is recommended.
--- NOTE | 2017-05-15 14:17 | CARD ---
APPROVED REPORT EKG Measurement Heart [id number] <Conclusion> Atrial fibrillation Left axis deviation complete left bundle branch block Nonspecific ST and T wave abnormality Abnormal ECG
== END 2017-05-14 20:32 | disposition home or self-care (01) ==
LOC: H.ER 14:46 → SUPCPDRO 14:46 → H.ER 20:32
DX: R10.9 Unspecified abdominal pain (principal); K57.90 Diverticulosis of intestine, part unspecified, without perforation or abscess without bleeding; R07.89 Other chest pain; E11.22 Type 2 diabetes mellitus with diabetic chronic kidney disease; E78.00 Pure hypercholesterolemia, unspecified; F41.9 Anxiety disorder, unspecified; I13.0 Hypertensive heart and chronic kidney disease with heart failure and stage 1 through stage 4 chronic kidney disease, or unspecified chronic kidney disease; I48.91 Unspecified atrial fibrillation; Z79.82 Long term (current) use of aspirin; K29.70 Gastritis, unspecified, without bleeding
CPT/HCPCS: 71010; 74177; 80053; 81003; 82948; 83690; 84484; 85025; 85610; 85730; 93005; 96374; 96375; 99285; J2270; J2405; J7040; Q9967

== ENCOUNTER 2017-07-02 22:27 | Observation (INO) | payer MEDICARE, MEDICAID ==
[2017-07-02] MEDS ORDERED: Albuterol-Ipratrop 3 mg / 0.5 (3 ml) UD INH STA (22:39)
[2017-07-02] MEDS ORDERED: Sodium Chloride 0.9% 1,000 ML IV STA (22:51)
[2017-07-02] MEDS ORDERED: Albuterol-Ipratrop 3 mg / 0.5 (3 ml) UD ONE (22:57)
[2017-07-02 23:35] LABS: BASO # 0.1 K/uL (0.0-0.2); BASO % 0.5 % (0.0-2.0); EOS # 0.2 K/uL (0.0-0.7); EOS % 1.4 % (0.0-4.0); HEMOGLOBIN 10.9 g/dL (12.0-16.0); LYMPH # 1.1 K/uL (1.0-4.3); LYMPH % 10.4 % (20.0-40.0); MEAN CELL VOLUME 79.5 fl (81.0-99.0); MEAN CORPUSCULAR HEMOGLOBIN 25.3 pg (27.0-31.0); MEAN CORPUSCULAR HGB CONC 31.8 g/dL (33.0-37.0); MEAN PLATELET VOLUME 7.6 fl (7.2-11.7); MONO # 0.8 K/uL (0.0-0.8); MONO % 7.1 % (0.0-10.0); NEUT # 8.7 K/uL (1.8-7.0); NEUT % 80.6 % (50.0-75.0); NRBC % 0.1 % (0.0-0.0); RBC 4.32 Mil/uL (3.80-5.20); RED CELL DISTRIBUTION WIDTH 16.6 % (11.5-14.5); WHITE BLOOD COUNT 10.8 K/uL (4.8-10.8)
--- NOTE | 2017-07-02 23:57 | ED PDOC ---
HPI: SOB/CHF/COPD Time Seen by Provider: 07/02/17 22:37 Chief Complaint (Nursing): Shortness Of Breath Chief Complaint (Provider): Shortness of Breath History Per: Patient History/Exam Limitations: no limitations Onset/Duration Of Symptoms: Days (1 day ago) Current Symptoms Are (Timing): Still Present Additional Complaint(s): 87 y/o female, brought in by her son, with a past medical history of CAD, CHF, HTN and COPD, presents to the ED complaining of general weakness and shortness of breath, onset of 1 day ago. She is currently living with her son and is home oxygen dependent. Her son reports that the patient is very weak with associated poor PO intake. Patient denies any nausea, vomiting, diarrhea, or fever. Past Medical History Reviewed: Historical Data, Nursing Documentation, Vital Signs Vital Signs: Last Vital Signs Temp 96.3 F L 07/02/17 22:32 Pulse 67 07/02/17 22:32 Resp 22 07/02/17 22:32 BP 146/75 07/02/17 22:32 Pulse Ox 97 07/03/17 00:16 - Medical History PMH: Anemia, Anxiety, Arthritis, Atrial Fibrillation, CAD, Cardia Arrhythmia, CHF, COPD, Diverticulitis, Gastritis, HTN, Hypercholesterolemia, Osteoporosis, Pneumonia, Chronic Kidney Disease (CKD stage 3) Denies: Asthma, Bronchitis, Emphysema, HIV, Hypothyroidism, Mitral Valve Prolapse, Peripheral Edema, Pulmonary Embolism, Rheumatoid Arthritis, Sleep Apnea - Surgical History Surgical History: Appendectomy Denies: Pacemaker - Family History Family History: States: Unknown Family Hx - Living Arrangements Living Arrangements: With Family (with son) - Social History Current smoker - smoking cessation education provided: No Ex-Smoker (has not smoked in the last 12 months): No Alcohol: None - Home Medications Home Medications: Ambulatory Orders Medication Instructions Recorded Acetaminophen with Codeine 1 tab PO Q4H PRN 07/30/16 [Tylenol with Codeine #3 Tablet] Albuterol Sulfate [Proair Hfa] 2 puff IH Q4H PRN 07/30/16 Alprazolam [Xanax] 0.5 mg PO TID 07/30/16 Calcitonin,[place],Synthetic 1 spray KRISSY DAILY 07/30/16 [Calcitonin-[place]] Fluticasone Propionate [Flonase] 2 spray KRISSY DAILY 07/30/16 Levalbuterol [Xopenex] 0.63 mg IH Q8H PRN 07/30/16 Ondansetron [Zofran Tab] 4 mg PO DAILY PRN 07/30/16 Famotidine [Pepcid] 20 mg PO BID PRN 01/17/17 Multivitamin/Iron/Folic Acid 1 tab PO DAILY 01/17/17 [Centrum Women Tablet] Pantoprazole Sodium [Protonix] 40 mg PO DAILY 01/17/17 Phenobarb/Hyoscy/Atropine/Scop 1 tab PO DAILY 01/17/17 [ Tablet] Aspirin [Ecotrin] 81 mg PO DAILY #30 tabec 03/17/17 Atorvastatin [Lipitor] 40 mg PO HS #30 tab 03/17/17 Celecoxib [celeBREX] 200 mg PO Q12 #60 cap 03/17/17 Dicyclomine [Bentyl] 20 mg PO DAILY PRN #30 tab 03/17/17 Digoxin [Digitek] 125 mcg PO DAILY #30 tablet 03/17/17 Divalproex [Depakote Sprinkles] 125 mg PO BID #60 capsule 03/17/17 Docusate [Colace] 200 mg PO TID #90 cap 03/17/17 Isosorbide Mononitrate [Imdur] 60 mg PO DAILY #30 tab 03/17/17 Lidocaine 5% 1 appl TOP TID #1 tube 03/17/17 Metoprolol Succinate [Toprol XL] 25 mg PO DAILY #30 tab 03/17/17 Sucralfate [Carafate Oral Susp] 1 gm PO QID #30 udc 03/17/17 Tiotropium [Spiriva] 18 mcg IH HS #30 cap 03/17/17 amLODIPine [Norvasc] 10 mg PO DAILY #30 tab 03/17/17 hydroCHLOROthiazide [Hydrodiuril] 25 mg PO DAILY #30 tab 03/17/17 - Allergies Allergies/Adverse Reactions: Allergies Allergy/AdvReac Type Severity Reaction Status Date / Time No Known Allergies Allergy Verified 07/30/16 16:17 Review of Systems ROS Statement: Except As Marked, All Systems Reviewed And Found Negative Constitutional: Positive for: Weakness (poor po intake). Negative for: Fever Respiratory: Positive for: Shortness of Breath Gastrointestinal: Negative for: Nausea, Vomiting, Diarrhea Physical Exam - Reviewed Nursing Documentation Reviewed: Yes Vital Signs Reviewed: Yes - Physical Exam Appears: Positive for: Non-toxic, No Acute Distress Head Exam: Positive for: ATRAUMATIC, NORMOCEPHALIC Skin: Positive for: Normal Color, Warm Eye Exam: Positive for: Normal appearance, EOMI, PERRL ENT: Positive for: Other (Tacky Mucous Membranes) Neck: Positive for: Normal, Painless ROM, Supple Cardiovascular/Chest: Positive for: Regular Rate, Rhythm. Negative for: Murmur Respiratory: Positive for: Wheezing (bilateral wheezing). Negative for: Respiratory Distress Gastrointestinal/Abdominal: Positive for: Normal Exam, Soft. Negative for: Tenderness Back: Positive for: Normal Inspection Extremity: Positive for: Normal ROM. Negative for: Pedal Edema, Deformity Neurologic/Psych: Positive for: Alert, Oriented. Negative for: Motor/Sensory Deficits - Laboratory Results Result Diagrams: 07/02/17 23:22 07/02/17 23:22 - ECG O2 Sat by Pulse Oximetry: 97 (RA) Pulse Ox Interpretation: Normal Medical Decision Making Medical Decision Making: Time: --22:38 Impression: --87 y/o female with general weakness in setting of poor PO intake and dehydration Plan: --Labs --Lactic Acid, Plasma --EKG --PTT --Prothrombin Time --Chest X-ray --Albuterol 3ml INH --methylprednisolone mg IVP --IV Fluids --Blood Culture --Heplock Insertion --Peak Flow Pre/Post TX --Influenza A B --Urinalysis Reassess --00:33 Labs reviewed and revealed no clinically significant abnormalities with exception mild elevation in creatinine. In providers opinion this is likely due to the patient's volume depleted status. X-ray showed hyperinflation and chronic changes related to COPD. Patient placed on observation status. Patient case discussed with Dr. Antonio. Scribe Attestation: Documented by Severino Joseph acting as a scribe for Marcel Arredondo MD. Disposition - Clinical Impression Clinical Impression: Dehydration, COPD (chronic obstructive pulmonary disease) - Patient ED Disposition Is Patient to be Admitted: Yes Discussed With : Marco A Antonio Doctor Will See Patient In The: Hospital - Disposition Disposition Time: 00:33 Condition: FAIR - Pt Status Changed To: Hospital Disposition Of: Observation
[2017-07-03 00:10] LABS: ALB/GLOB RATIO 1.1 (1.0-2.1); ALBUMIN 3.8 g/dL (3.5-5.0); CALCIUM 10.1 mg/dL (8.4-10.2)
--- NOTE | 2017-07-03 00:37 | CP.PCM.HP ---
History of Present Illness - History of Present Illness History of Present Illness: CC: Generalized weakness HPI: This is an 87 y/o female with MHx significant for COPD on home O2, A fib, CHF, and CKD (reportedly III) who comes in with c/o generalized weakness and decreased PO intake. The decreased PO intake has been ongoing for a little while , but the weakness appeared today. Patient was unable to get up and walk or feed herself today because of generalized weakness, and she was becoming fatigued and repeatedly falling asleep when trying to do any activity. There is no n/v/d. There is no f/c. ROS: 14 systems reviewed, negative other than HPI MHx: COPD (Home O2), A fib, CHF, CKD possibly III, gastritis SHx: no surgical histor7 Allergies: NKDA Medications: Per med rec Family Hx: No relevant findings Social Hx: Lives at home, no EtOH, prior heavy smoking Surrogate Dec Mkr: Son, info on chart Present on Admission - Present on Admission Any Indicators Present on Admission: No Past Patient History - Infectious Disease Hx of Infectious Diseases: None - Tetanus Immunizations Tetanus Immunization: Unknown - Past Medical History & Family History Past Medical History?: Yes - Past Social History Alcohol: None - CARDIAC Hx Atrial Fibrillation: Yes Hx Cardia Arrhythmia: Yes Hx Congestive Heart Failure: Yes Hx Hypercholesterolemia: Yes Hx Hypertension: Yes Hx Mitral Valve Prolapse: No Hx Pacemaker: No Hx Peripheral Edema: No - PULMONARY Hx Asthma: No Hx Bronchitis: No Hx Chronic Obstructive Pulmonary Disease (COPD): Yes Hx Emphysema: No Hx Pneumonia: Yes Hx Pulmonary Embolism: No Hx Sleep Apnea: No - NEUROLOGICAL Hx Neurological Disorder: No - HEENT Hx HEENT Problems: Yes - RENAL Hx Chronic Kidney Disease: Yes (CKD stage 3) - ENDOCRINE/METABOLIC Hx Hypothyroidism: No - HEMATOLOGICAL/ONCOLOGICAL Hx Anemia: Yes Hx Human Immunodeficiency Virus (HIV): No - INTEGUMENTARY Hx Dermatological Problems: No - MUSCULOSKELETAL/RHEUMATOLOGICAL Hx Arthritis: Yes Hx Osteoporosis: Yes Hx Rheumatoid Arthritis: No - GASTROINTESTINAL Hx Diverticulitis: Yes Hx Gastritis: Yes - GENITOURINARY/GYNECOLOGICAL Hx Genitourinary Disorders: No - PSYCHIATRIC Hx Anxiety: Yes - SURGICAL HISTORY Hx Appendectomy: Yes - ANESTHESIA Hx Anesthesia: Yes Hx Anesthesia Reactions: No Hx Malignant Hyperthermia: No Meds Allergies/Adverse Reactions: Allergies Allergy/AdvReac Type Severity Reaction Status Date / Time No Known Allergies Allergy Verified 07/30/16 16:17 Physical Exam - Constitutional Appears: No Acute Distress, Chronically Ill - Head Exam Head Exam: ATRAUMATIC, NORMOCEPHALIC - Eye Exam Eye Exam: EOMI, PERRL - ENT Exam ENT Exam: Mucous Membranes Dry - Neck Exam Neck exam: Positive for: Full Rom - Respiratory Exam Respiratory Exam: Rhonchi - Cardiovascular Exam Cardiovascular Exam: REGULAR RHYTHM, +S1, +S2 - GI/Abdominal Exam GI & Abdominal Exam: Normal Bowel Sounds, Soft - Extremities Exam Extremities exam: Positive for: full ROM, normal inspection - Neurological Exam Neurological exam: Alert, CN II-XII Intact, Oriented x3 - Psychiatric Exam Psychiatric exam: Normal Affect, Normal Mood - Skin Skin Exam: Dry, Warm Results - Vital Signs Recent Vital Signs: Last Vital Signs Temp 96.3 F L 07/02/17 22:32 Pulse 67 07/02/17 22:32 Resp 22 07/02/17 22:32 BP 146/75 07/02/17 22:32 Pulse Ox 97 07/03/17 00:35 - Labs Result Diagrams: 07/02/17 23:22 07/02/17 23:22 Labs: Laboratory Results - last 24 hr 07/02/17 07/02/17 07/02/17 23:22 23:22 23:22 WBC 10.8 RBC 4.32 Hgb 10.9 L Hct 34.4 MCV 79.5 L MCH 25.3 L MCHC 31.8 L RDW 16.6 H Plt Count 245 D MPV 7.6 Neut % (Auto) 80.6 H Lymph % (Auto) 10.4 L [place]field % (Auto) 7.1 Eos % (Auto) 1.4 Baso % (Auto) 0.5 Neut # 8.7 H Lymph # 1.1 Garfield # 0.8 Eos # 0.2 Baso # 0.1 Sodium 138 Potassium 4.4 Chloride 91 L Carbon Dioxide 36 H Anion Gap 15 BUN 26 H Creatinine 1.5 H Est GFR ( Amer) 40 Est GFR (Non-Af Amer) 33 Random Glucose 150 H Lactic Acid Calcium 10.1 Total Bilirubin 0.8 AST 43 H ALT 43 Alkaline Phosphatase 147 H D Total Protein 7.4 Albumin 3.8 Globulin 3.5 Albumin/Globulin Ratio 1.1 Influenza Typ A,B (EIA) Negative for flu a/b 07/02/17 23:22 WBC RBC Hgb Hct MCV MCH MCHC RDW Plt Count MPV Neut % (Auto) Lymph % (Auto) [place] % (Auto) Eos % (Auto) Baso % (Auto) Neut # Lymph # [place]field # Eos # Baso # Sodium Potassium Chloride Carbon Dioxide Anion Gap BUN Creatinine Est GFR ( Amer) Est GFR (Non-Af Amer) Random Glucose Lactic Acid 1.0 Calcium Total Bilirubin AST ALT Alkaline Phosphatase Total Protein Albumin Globulin Albumin/Globulin Ratio Influenza Typ A,B (EIA) - Imaging and Cardiology Chest x-ray Status: Image reviewed by me (lungs appear hyperinflated, no consolidation or vol o/l) Assessment & Plan (1) Dehydration Assessment and Plan: 87 y/o female with multiple medical conditions who presents with decreased PO intake, dehydration, and weakness. 1) Vol dep/AoCRF -Gentle IVF -Check UA -Dose medications renally; hold renally toxic medications 2) COPD -- stable, continue home O2 and inhalers 3) CHF -- currently dry, controlled 4) HTN -- cont home medications except HCTZ given ARF 5) DVT PPx -- SC heparin Status: Acute (2) Acute on chronic renal insufficiency Status: Acute (3) COPD (chronic obstructive pulmonary disease) Status: Chronic Priority: High (4) CHF (congestive heart failure) Status: Acute Priority: Medium (5) Afib Status: Chronic Priority: High (6) Gastritis Status: Chronic Priority: Low (7) HTN (hypertension) Status: Chronic Priority: Low (8) DVT prophylaxis Status: Acute
[2017-07-03 00:42] LABS: PARTIAL THROMBOPLASTIN TIME 35.5 Seconds (25.6-37.1); PROTHROMBIN TIME 11.6 Seconds (9.8-13.1)
[2017-07-03] MEDS ORDERED: Levalbuterol 0.63 MG/3 ML Inhal Soln UD INH PRN (00:47)
[2017-07-03] MEDS ORDERED: Albuterol-Ipratrop 3 mg / 0.5 (3 ml) UD INH STA (02:59)
[2017-07-03 03:17] LABS: ABG ALLEN TEST YES; ARTERIAL BLOOD GAS HCO3 27.4 mmol/L (21-28); ARTERIAL BLOOD GAS HEMOGLOBIN 12.3 g/dL (11.7-17.4); ARTERIAL BLOOD GAS O2 CAPACITY 16.7 mL/dL (16-24); ARTERIAL BLOOD GAS O2 CONTENT 15.9 ML/dL (15-23); ARTERIAL BLOOD GAS O2 SAT 95.2 % (95-98); ARTERIAL BLOOD GAS PCO2 84 mm/Hg (35-45); ARTERIAL BLOOD GAS PH 7.21 (7.35-7.45); ARTERIAL BLOOD GAS PO2 68 mm/Hg (80-100); ARTERIAL BLOOD GAS TCO2 36.2 mmol/L (22-28)
--- NOTE | 2017-07-03 03:39 | PCM.RRT ---
PIPE LINE INSPECTOR Nurse Assessment - Situation PIPE LINE INSPECTOR Responder Arrival Time: 03:00 Location: 6th floor Room Number: [id number] PIPE LINE INSPECTOR Reason for Call: O2 Saturation below 90% PIPE LINE INSPECTOR Called By: RN - IV IV Inserted during PIPE LINE INSPECTOR?: No - Respiratory Oxygen Delivery Method: Mask Received Nebulizer Treatments: Yes Was the Patient Ventilated with Bag/Mask 100% O2?: No Secretions Suctioned?: No Was the Patient Intubated?: No Was the Patient Placed on a Ventilator?: No - Ventilator Settings Peak Flow: 100 I.Reason for PIPE LINE INSPECTOR - A) Acute Change in Patient: (Select all that apply): Acute change in SpO2 less (89) Subjective: PIPE LINE INSPECTOR was called for an 87 y/o female with MHx significant for COPD on home O2, A fib, CHF, and CKD (reportedly III) due to Spo2 below 89%. Upon arrival, patient was alert, awake orientated and breathing on mask 6 L O2. VS on arrival, 140/62 , HR 81, RR 20, Spo2 92%. On physical exam b/l rales. Patient was given Duoneb treatment and ABG was done. ABG shows Pco2 above 84, PH 7.21, Po2 68. Patient was started on BIPAP and started saturating above 94%, remained alert, awake and orientated. PIPE LINE INSPECTOR was ended. Will repeat ABG after an hour to follow C02. Case discussed with Dr. Antonio - Neurological Status (Select all that apply): Alert, Responsive, Oriented, Verbal, Follows Commands - Respiratory Oxygen Delivery Method: BiPAP @% - Constitutional Appears: In Acute Distress - Head Head Exam: ATRAUMATIC - Eyes Eye Exam: EOMI, Normal appearance, PERRL - Respiratory Exam Respiratory Exam: Accessory Muscle Use, Decreased Breath Sounds, Rales - Cardiovascular Exam Cardiovascular Exam: Irregular Rhythm - GI/Abdominal Exam GI & Abdominal Exam: Soft, Normal Bowel Sounds - Neurological Exam Neurological Exam: Alert, Awake, Oriented x3 - Extremities Exam Extremities Exam: Normal Capillary Refill Plan - Assessment of Findings&Treatment Plan 87 y/o female with MHx significant for COPD on home O2, A fib, CHF, and CKD ( reportedly III) - Monitor Respiratory status - BIPAP started - Repeat ABG
[2017-07-03 05:13] LABS: ABG ALLEN TEST YES; ARTERIAL BLOOD GAS HCO3 28.4 mmol/L (21-28); ARTERIAL BLOOD GAS HEMOGLOBIN 11.2 g/dL (11.7-17.4); ARTERIAL BLOOD GAS O2 CAPACITY 15.3 mL/dL (16-24); ARTERIAL BLOOD GAS O2 CONTENT 15.2 ML/dL (15-23); ARTERIAL BLOOD GAS O2 SAT 99.2 % (95-98); ARTERIAL BLOOD GAS PCO2 68 mm/Hg (35-45); ARTERIAL BLOOD GAS PH 7.29 (7.35-7.45); ARTERIAL BLOOD GAS PO2 94 mm/Hg (80-100); ARTERIAL BLOOD GAS TCO2 34.8 mmol/L (22-28)
[2017-07-03] MEDS ORDERED: Sodium Chloride 0.9% 1,000 ML IV SCH (07:15)
[2017-07-03] MEDS: Levalbuterol 0.63 MG/3 ML Inhal Soln UD INH SCH ×3 (07:21→23:34)
[2017-07-03 08:05] LABS: CALCIUM 9.8 mg/dL (8.4-10.2)
[2017-07-03 08:31] LABS: HEMOGLOBIN 11.1 g/dL (12.0-16.0); MEAN CORPUSCULAR HEMOGLOBIN 25.1 pg (27.0-31.0); MEAN CORPUSCULAR HGB CONC 31.4 g/dL (33.0-37.0); MEAN PLATELET VOLUME 7.8 fl (7.2-11.7); RBC 4.41 Mil/uL (3.80-5.20); RED CELL DISTRIBUTION WIDTH 16.3 % (11.5-14.5); WHITE BLOOD COUNT 8.2 K/uL (4.8-10.8)
--- NOTE | 2017-07-03 08:54 | RAD ---
HISTORY: admit COMPARISON: Chest radiograph dated 05/14/2017. FINDINGS: LUNGS: Stable chronic prominence of the bilateral interstitial markings. Hyperinflated lungs with flattened diaphragms. No focal consolidation. PLEURA: No significant pleural effusion identified, no pneumothorax apparent. CARDIOVASCULAR: Atherosclerotic aortic calcifications. Cardiomediastinal silhouette stably enlarged. OSSEOUS STRUCTURES: Unchanged. VISUALIZED UPPER ABDOMEN: Normal. OTHER FINDINGS: None. IMPRESSION: No active disease.
[2017-07-03 09:30] LABS: RENAL EPITHELIAL < 1 /hpf (0-3); SQUAMOUS EPITHIAL 1 /hpf (0-5); URINE BACTERIA RARE (<OCC); URINE BILIRUBIN NEGATIVE (NEGATIVE); URINE BLOOD NEGATIVE (NEGATIVE); URINE CLARITY SLIGHTY-CLOUDY (Clear); URINE COLOR YELLOW (YELLOW); URINE GLUCOSE (UA) NEG (Normal); URINE HYALINE CAST 0-2 /hpf (0-2); URINE LEUKOCYTE ESTERASE SMALL Leu/uL (Negative); URINE NITRATE NEGATIVE (NEGATIVE); URINE PROTEIN 100 mg/dL (NEGATIVE); URINE UROBILINOGEN 0.2-1.0 mg/dL (0.2-1.0)
[2017-07-03] MEDS: Divalproex 125 mg Sprinkle Capsule PO SCH ×2 (09:48→17:32)
[2017-07-03] MEDS: Digoxin 125 mcg (0.125 mg) Tab PO SCH (09:50)
[2017-07-03] MEDS: Multivitamin With Minerals Tab PO SCH (09:51)
[2017-07-03] MEDS: Pantoprazole 40 mg EC Tab PO SCH (09:51)
[2017-07-03] MEDS: Metoprolol Succinate 25 mg XL Tab PO SCH (09:51)
[2017-07-03] MEDS ORDERED: methylPREDNISolone 30 MG in Sodium Chloride 0.9% 50 ML IVPB SCH (21:00)
[2017-07-03] MEDS: Tiotropium 18 mcg Cap For Inhalation IH SCH (21:26)
[2017-07-03] MEDS: MethylPREDNISolone 40 mg Vial IVP SCH (21:27)
[2017-07-03 22:04] LABS: ABG ALLEN TEST YES; ARTERIAL BLOOD GAS HCO3 29.2 mmol/L (21-28); ARTERIAL BLOOD GAS O2 CAPACITY 14.8 mL/dL (16-24); ARTERIAL BLOOD GAS O2 CONTENT 14.6 ML/dL (15-23); ARTERIAL BLOOD GAS O2 SAT 98.5 % (95-98); ARTERIAL BLOOD GAS PCO2 59 mm/Hg (35-45); ARTERIAL BLOOD GAS PH 7.35 (7.35-7.45); ARTERIAL BLOOD GAS PO2 76 mm/Hg (80-100); ARTERIAL BLOOD GAS TCO2 34.4 mmol/L (22-28)
[2017-07-04 06:18] LABS: HEMOGLOBIN 10.8 g/dL (12.0-16.0); MEAN CELL VOLUME 79.4 fl (81.0-99.0); MEAN CORPUSCULAR HEMOGLOBIN 25.2 pg (27.0-31.0); MEAN CORPUSCULAR HGB CONC 31.7 g/dL (33.0-37.0); RBC 4.29 Mil/uL (3.80-5.20); RED CELL DISTRIBUTION WIDTH 16.3 % (11.5-14.5); WHITE BLOOD COUNT 9.3 K/uL (4.8-10.8)
[2017-07-04 06:36] LABS: BLOOD UREA NITROGEN 24 mg/dl (7-17); GFR AFRICAN-AMERICAN > 60; GFR NON-AFRICAN AMERICAN 52
[2017-07-04] MEDS: Levalbuterol 0.63 MG/3 ML Inhal Soln UD INH SCH ×2 (07:34→15:03)
[2017-07-04] MEDS: Divalproex 125 mg Sprinkle Capsule PO SCH (08:25)
[2017-07-04] MEDS: Pantoprazole 40 mg EC Tab PO SCH (08:29)
[2017-07-04] MEDS: Digoxin 125 mcg (0.125 mg) Tab PO SCH (08:38)
[2017-07-04] MEDS: MethylPREDNISolone 40 mg Vial IVP SCH ×2 (08:38→21:23)
[2017-07-04] MEDS: Metoprolol Succinate 25 mg XL Tab PO SCH (08:39)
[2017-07-04] MEDS: Multivitamin With Minerals Tab PO SCH (08:39)
--- NOTE | 2017-07-04 10:51 | CP.PCM.CON ---
Past Patient History - Infectious Disease Hx of Infectious Diseases: None - Tetanus Immunizations Tetanus Immunization: Unknown - Past Medical History & Family History Past Medical History?: Yes - Past Social History Smoking Status: Former Smoker - CARDIAC Hx Cardiac Disorders: Yes Hx Atrial Fibrillation: Yes Hx Cardia Arrhythmia: Yes Hx Congestive Heart Failure: Yes Hx Heart Attack: Yes Hx Hypercholesterolemia: Yes Hx Hypertension: Yes Hx Mitral Valve Prolapse: No Hx Pacemaker: No Hx Peripheral Edema: No - PULMONARY Hx Respiratory Disorders: Yes Hx Asthma: No Hx Bronchitis: No Hx Chronic Obstructive Pulmonary Disease (COPD): Yes Hx Emphysema: No Hx Pneumonia: Yes Hx Pulmonary Embolism: No Hx Sleep Apnea: Yes - NEUROLOGICAL Hx Neurological Disorder: No - HEENT Hx HEENT Problems: Yes - RENAL Hx Chronic Kidney Disease: Yes (CKD stage 3) - ENDOCRINE/METABOLIC Hx Endocrine Disorders: No Hx Hypothyroidism: No - HEMATOLOGICAL/ONCOLOGICAL Hx Blood Disorders: Yes Hx AIDS: No Hx Anemia: Yes Hx Blood Transfusions: Yes Hx Blood Transfusion Reaction: No Hx Human Immunodeficiency Virus (HIV): No - INTEGUMENTARY Hx Dermatological Problems: No - MUSCULOSKELETAL/RHEUMATOLOGICAL Hx Arthritis: Yes Hx Falls: No Hx Osteoporosis: Yes Hx Rheumatoid Arthritis: No - GASTROINTESTINAL Hx Gastrointestinal Disorders: Yes Hx Diverticulitis: Yes Hx Gastritis: Yes - GENITOURINARY/GYNECOLOGICAL Hx Genitourinary Disorders: No - PSYCHIATRIC Hx Psychophysiologic Disorder: Yes Hx Anxiety: Yes Hx Substance Use: No - SURGICAL HISTORY Hx Surgeries: Yes Hx Appendectomy: Yes - ANESTHESIA Hx Anesthesia: Yes Hx Anesthesia Reactions: No Hx Malignant Hyperthermia: No Meds Allergies/Adverse Reactions: Allergies Allergy/AdvReac Type Severity Reaction Status Date / Time No Known Allergies Allergy Verified 07/30/16 16:17 - Medications Medications: Current Medications Acetaminophen (Tylenol 325mg Tab) 650 mg PO Q4H PRN PRN Reason: Pain, Mild (1-3) Last Admin: 07/03/17 21:35 Dose: 650 mg Alprazolam (Xanax) 0.5 mg PO TID [facility] Last Admin: 07/04/17 08:33 Dose: 0.5 mg Amlodipine Besylate (Norvasc) 10 mg PO DAILY [facility] Last Admin: 07/04/17 08:38 Dose: 10 mg Aspirin (Ecotrin) 81 mg PO DAILY [facility] Last Admin: 07/04/17 08:25 Dose: 81 mg Atorvastatin Calcium (Lipitor) 40 mg PO HS [facility] Last Admin: 07/03/17 21:26 Dose: 40 mg Digoxin (Lanoxin) 0.125 mg PO DAILY [facility] Last Admin: 07/04/17 08:38 Dose: 0.125 mg Docusate Sodium (Colace) 200 mg PO TID [facility] Last Admin: 07/04/17 08:25 Dose: 200 mg Famotidine (Pepcid) 20 mg PO BID PRN PRN Reason: Heartburn Fluticasone Propionate (Flonase) 2 spr KRISSY DAILY [facility] Last Admin: 07/04/17 08:26 Dose: 2 spr Heparin Sodium (Porcine) (Heparin) 5,000 units SC Q12 [facility] PRN Reason: Protocol Last Admin: 07/04/17 08:26 Dose: 5,000 units Isosorbide Mononitrate (Imdur) 60 mg PO DAILY [facility] Last Admin: 07/04/17 08:37 Dose: 60 mg Levalbuterol HCl (Xopenex) 0.63 mg INH RQ8 [facility] Last Admin: 07/04/17 07:34 Dose: 0.63 mg Methylprednisolone (Solu-Medrol) 30 mg IVP Q12 [facility] Last Admin: 07/04/17 08:38 Dose: 30 mg Metoprolol Succinate (Toprol Xl) 25 mg PO DAILY [facility] Last Admin: 07/04/17 08:39 Dose: 25 mg Multivitamins/Minerals (Therapeutic-M Tab) 1 tab PO DAILY [facility] Last Admin: 07/04/17 08:39 Dose: 1 tab Ondansetron HCl (Zofran Inj) 4 mg IVP Q6 PRN PRN Reason: Nausea/Vomiting Last Admin: 07/04/17 08:47 Dose: 4 mg Pantoprazole Sodium (Protonix Ec Tab) 40 mg PO DAILY [facility] Last Admin: 07/04/17 08:29 Dose: 40 mg Tiotropium [place] (Spiriva) 18 mcg IH [facility] Last Admin: 07/03/17 21:26 Dose: 18 mcg Results - Vital Signs Recent Vital Signs: Last Vital Signs Temp 97.7 F 07/04/17 07:50 Pulse 89 07/04/17 08:39 Resp 20 07/04/17 07:50 BP 155/82 H 07/04/17 08:39 Pulse Ox 99 07/04/17 07:50 - Labs Result Diagrams: 07/04/17 06:00 07/04/17 06:00 Labs: Laboratory Results - last 24 hr 07/03/17 07/04/17 07/04/17 21:56 06:00 06:00 WBC 9.3 RBC 4.29 Hgb 10.8 L Hct 34.0 MCV 79.4 L MCH 25.2 L MCHC 31.7 L RDW 16.3 H Plt Count 283 pCO2 59 H pO2 76 L HCO3 29.2 H ABG pH 7.35 ABG Total CO2 34.4 H ABG O2 Saturation 98.5 H ABG O2 Content 14.6 L ABG Base Excess 5.6 H ABG Hemoglobin 11.0 L ABG Carboxyhemoglobin 2.4 H POC ABG HHb (Measured) 1.4 ABG Methemoglobin 2.5 ABG O2 Capacity 14.8 L Carrillo Test Yes A-a O2 Difference 135.0 Hgb O2 Saturation 93.7 L FiO2 40.0 Sodium 137 Potassium 4.4 Chloride 95 L Carbon Dioxide 34 H Anion Gap 12 BUN 24 H Creatinine 1.0 Est GFR ( Amer) > 60 Est GFR (Non-Af Amer) 52 Random Glucose 149 H Calcium 10.0 Assessment & Plan - Date & Time Date: 07/04/17 Time: 10:50
[2017-07-04] MEDS ORDERED: Levalbuterol 0.63 MG/3 ML Inhal Soln UD IH PRN (11:03)
--- NOTE | 2017-07-04 13:32 | CP.PCM.PN ---
Subjective - Date & Time of Evaluation Date of Evaluation: 07/04/17 Time of Evaluation: 10:00 - Subjective Subjective: Patient seen and examined bedside. Elderly female of stated age, chronically ill , cachetic , on Bipap FIO2 40 %, awake and alert. Son bedside. As per staff patient became somewhat confused and delirious overnight. BP 155/82 HR 87 afebrile Objective - Vital Signs/Intake and Output Vital Signs (last 24 hours): Temp Pulse Resp BP Pulse Ox 97.7 F 89 20 155/82 H 99 07/04/17 07:50 07/04/17 11:19 07/04/17 07:50 07/04/17 08:39 07/04/17 07:50 Intake and Output: 07/04/17 07/04/17 06:59 18:59 Intake Total 500 Balance 500 - Medications Medications: Current Medications Acetaminophen (Tylenol 325mg Tab) 650 mg PO Q4H PRN PRN Reason: Pain, Mild (1-3) Last Admin: 07/04/17 13:05 Dose: 650 mg Acetazolamide (Diamox 250 Mg Tab) 250 mg PO BID [facility] Last Admin: 07/04/17 12:47 Dose: 250 mg Alprazolam (Xanax) 0.5 mg PO TID [facility] Last Admin: 07/04/17 12:47 Dose: 0.5 mg Amlodipine Besylate (Norvasc) 10 mg PO DAILY [facility] Last Admin: 07/04/17 08:38 Dose: 10 mg Aspirin (Ecotrin) 81 mg PO DAILY [facility] Last Admin: 07/04/17 08:25 Dose: 81 mg Atorvastatin Calcium (Lipitor) 40 mg PO HS [facility] Last Admin: 07/03/17 21:26 Dose: 40 mg Digoxin (Lanoxin) 0.125 mg PO DAILY [facility] Last Admin: 07/04/17 08:38 Dose: 0.125 mg Docusate Sodium (Colace) 200 mg PO TID [facility] Last Admin: 07/04/17 12:48 Dose: 200 mg Famotidine (Pepcid) 20 mg PO BID PRN PRN Reason: Heartburn Fluticasone Propionate (Flonase) 2 spr KRISSY DAILY [facility] Last Admin: 07/04/17 08:26 Dose: 2 spr Heparin Sodium (Porcine) (Heparin) 5,000 units SC Q12 JAQUI PRN Reason: Protocol Last Admin: 07/04/17 08:26 Dose: 5,000 units Isosorbide Mononitrate (Imdur) 60 mg PO DAILY [facility] Last Admin: 07/04/17 08:37 Dose: 60 mg Levalbuterol HCl (Xopenex) 0.63 mg INH RQ8 [facility] Last Admin: 07/04/17 07:34 Dose: 0.63 mg Levalbuterol HCl (Xopenex) 0.63 mg IH Q8H PRN PRN Reason: Shortness of Breath Methylprednisolone (Solu-Medrol) 30 mg IVP Q12 [facility] Last Admin: 07/04/17 08:38 Dose: 30 mg Metoprolol Succinate (Toprol Xl) 25 mg PO DAILY [facility] Last Admin: 07/04/17 08:39 Dose: 25 mg Multivitamins/Minerals (Therapeutic-M Tab) 1 tab PO DAILY [facility] Last Admin: 07/04/17 08:39 Dose: 1 tab Ondansetron HCl (Zofran Inj) 4 mg IVP Q6 PRN PRN Reason: Nausea/Vomiting Last Admin: 07/04/17 08:47 Dose: 4 mg Pantoprazole Sodium (Protonix Ec Tab) 40 mg PO DAILY [facility] Last Admin: 07/04/17 08:29 Dose: 40 mg Tiotropium [place] (Spiriva) 18 mcg IH HS [facility] Last Admin: 07/03/17 21:26 Dose: 18 mcg - Labs Labs: 07/04/17 06:00 07/04/17 06:00 PT 11.6 Seconds (9.8-13.1) 07/02/17 23:22 INR 1.0 (0.9-1.2) 07/02/17 23:22 APTT 35.5 Seconds (25.6-37.1) 07/02/17 23:22 - Constitutional Appears: Confused (on and off confusion), Cachectic, Chronically Ill - Head Exam Head Exam: ATRAUMATIC, NORMOCEPHALIC - Eye Exam Eye Exam: EOMI, PERRL Pupil Exam: NORMAL ACCOMODATION - ENT Exam ENT Exam: Mucous Membranes Moist, Normal Exam - Neck Exam Neck Exam: Full ROM, Normal Inspection - Respiratory Exam Respiratory Exam: Prolonged Expiratory Phase, Rhonchi. absent: Wheezes - Cardiovascular Exam Cardiovascular Exam: REGULAR RHYTHM, RRR, +S1, +S2. absent: JVD - GI/Abdominal Exam GI & Abdominal Exam: Soft, Normal Bowel Sounds. absent: Distended, Guarding, Tenderness, Rebound - Rectal Exam Rectal Exam: Deferred - Extremities Exam Extremities Exam: Full ROM, Normal Capillary Refill, Normal Inspection, Pedal Edema (trace). absent: Calf Tenderness - Back Exam Back Exam: NORMAL INSPECTION - Neurological Exam Neurological Exam: Alert, Awake, CN II-XII Intact - Psychiatric Exam Psychiatric exam: Anxious - Skin Skin Exam: Dry, Pallor, Warm Assessment and Plan - Assessment and Plan (Free Text) Assessment: 87 y/o female with PMHx significant for COPD on home O2, A fib, CHF, and CKD ( reportedly III) came in complaining of generalized weakness and decreased PO intake. The decreased PO intake has been ongoing for a little while, but the weakness appeared today. Patient was unable to get up and walk or feed herself today because of generalized weakness, and she was becoming fatigued and repeatedly falling asleep when trying to do any activity. There is no n/v/d. There is no f/c. After being transferred to the floor patient became significantly SOB , with low O2 sat and PCO2 84 PO2 68 while on O2 via NC. She was placed on BIpap with improvement of her dyspnea. Pulmonary consulted ' 1.Dehydration/ generalized weakness with TOMA Started IVF 2. Acute on chronic respiratory failure with hypoxemia and hypercarbia in the setting of severe COPD patient is on home O2 and bipap pulmonary consulted placed on Bipap FIO2 50 % and doing well Continue Solumedrol ,Xopenex, spiriva started Diamox 3.Chronic Afib rate controlled on digoxin, Metoprolol 4. CHF , systolic and diastolic dysfunction, stable 5.Frail / cachetic BMI 19 nutrition consult 6. Hypertension controlled on Metoprolol, Norvasc,isosorbide 7.Elderly Delirium in acute care facility continue Bipap use maintain safety measures keep patient close to nursing station reorientation 8.Anxiety continue xanax patient has not been taking depakote Will d/c depakote 9. DVT / GI prophylaxis Protonix/ Heparin SCD
[2017-07-04] MEDS: Tiotropium 18 mcg Cap For Inhalation IH SCH (21:26)
[2017-07-05] MEDS: Levalbuterol 0.63 MG/3 ML Inhal Soln UD INH SCH ×2 (00:13→08:07)
[2017-07-05 06:16] LABS: HEMOGLOBIN 10.2 g/dL (12.0-16.0); MEAN CELL VOLUME 79.2 fl (81.0-99.0); MEAN CORPUSCULAR HGB CONC 31.5 g/dL (33.0-37.0); RBC 4.07 Mil/uL (3.80-5.20); RED CELL DISTRIBUTION WIDTH 16.7 % (11.5-14.5); WHITE BLOOD COUNT 10.4 K/uL (4.8-10.8)
[2017-07-05 06:27] LABS: CALCIUM 10.1 mg/dL (8.4-10.2)
[2017-07-05 08:13] VITALS: BP 162/83; PULSE 94; RESP 22; TEMP 97.7; O2SAT 100
[2017-07-05] MEDS: Multivitamin With Minerals Tab PO SCH (09:11)
[2017-07-05] MEDS: Metoprolol Succinate 25 mg XL Tab PO SCH (09:12)
[2017-07-05] MEDS: Pantoprazole 40 mg EC Tab PO SCH (09:12)
[2017-07-05 09:13] VITALS: PULSE 94
[2017-07-05] MEDS: Digoxin 125 mcg (0.125 mg) Tab PO SCH (09:13)
[2017-07-05] MEDS: MethylPREDNISolone 40 mg Vial IVP SCH (09:30)
--- NOTE | 2017-07-05 10:16 | CP.PCM.PN ---
Subjective - Date & Time of Evaluation Date of Evaluation: 07/05/17 Time of Evaluation: 10:12 - Subjective Subjective: Lying in bed on regular nasal canula presently. SpO2 94% at the present time on 3 LPM. Awake and well oriented, follows simple commands. No dependant edema or cyanosis. Neck is supple and trachea midline. Chest wall is hyper-resonant on percussion. Breath sounds are markedly diminished bilaterally. No audible wheezing or bronchial breathing. Dependant dry rales are present in the lower lobes. Heart sounds are distant, rhythm is regular. Plan is for discharge to home today. Acetazolamide 250MG BID added to regimen. All other maintenance medications remain the same. Stressed need for nightly use of BiPAP mask ventilator. Followup in office Tuesday. Objective - Vital Signs/Intake and Output Vital Signs (last 24 hours): Temp Pulse Resp BP Pulse Ox 97.7 F 94 H 22 162/83 H 100 07/05/17 08:13 07/05/17 09:12 07/05/17 08:13 07/05/17 09:12 07/05/17 08:13 - Medications Medications: Current Medications Acetaminophen (Tylenol 325mg Tab) 650 mg PO Q4H PRN PRN Reason: Pain, Mild (1-3) Last Admin: 07/04/17 21:32 Dose: 650 mg Acetazolamide (Diamox 250 Mg Tab) 250 mg PO BID [facility] Last Admin: 07/05/17 09:11 Dose: 250 mg Alprazolam (Xanax) 0.5 mg PO TID [facility] Last Admin: 07/05/17 09:24 Dose: 0.5 mg Amlodipine Besylate (Norvasc) 10 mg PO DAILY [facility] Last Admin: 07/05/17 09:12 Dose: 10 mg Aspirin (Ecotrin) 81 mg PO DAILY [facility] Last Admin: 07/05/17 09:13 Dose: 81 mg Atorvastatin Calcium (Lipitor) 40 mg PO HS [facility] Last Admin: 07/04/17 21:26 Dose: 40 mg Digoxin (Lanoxin) 0.125 mg PO DAILY [facility] Last Admin: 07/05/17 09:13 Dose: 0.125 mg Docusate Sodium (Colace) 200 mg PO TID [facility] Last Admin: 07/05/17 09:10 Dose: 200 mg Famotidine (Pepcid) 20 mg PO BID PRN PRN Reason: Heartburn Last Admin: 07/05/17 09:08 Dose: 20 mg Fluticasone Propionate (Flonase) 2 spr KRISSY DAILY [facility] Last Admin: 07/05/17 09:08 Dose: 2 spr Heparin Sodium (Porcine) (Heparin) 5,000 units SC Q12 JAQUI PRN Reason: Protocol Last Admin: 07/05/17 09:13 Dose: 5,000 units Isosorbide Mononitrate (Imdur) 60 mg PO DAILY [facility] Last Admin: 07/05/17 09:12 Dose: 60 mg Levalbuterol HCl (Xopenex) 0.63 mg INH RQ8 [facility] Last Admin: 07/05/17 08:07 Dose: 0.63 mg Levalbuterol HCl (Xopenex) 0.63 mg IH Q8H PRN PRN Reason: Shortness of Breath Methylprednisolone Acetate (Depo-Medrol) 80 mg IM ONCE ONE Stop: 07/05/17 10:31 Metoprolol Succinate (Toprol Xl) 25 mg PO DAILY [facility] Last Admin: 07/05/17 09:12 Dose: 25 mg Multivitamins/Minerals (Therapeutic-M Tab) 1 tab PO DAILY [facility] Last Admin: 07/05/17 09:11 Dose: 1 tab Ondansetron HCl (Zofran Inj) 4 mg IVP Q6 PRN PRN Reason: Nausea/Vomiting Last Admin: 07/04/17 08:47 Dose: 4 mg Pantoprazole Sodium (Protonix Ec Tab) 40 mg PO DAILY [facility] Last Admin: 07/05/17 09:12 Dose: 40 mg Tiotropium [place] (Spiriva) 18 mcg IH HS [facility] Last Admin: 07/04/17 21:26 Dose: 18 mcg - Labs Labs: 07/05/17 05:55 07/05/17 05:55 PT 11.6 Seconds (9.8-13.1) 07/02/17 23:22 INR 1.0 (0.9-1.2) 07/02/17 23:22 APTT 35.5 Seconds (25.6-37.1) 07/02/17 23:22
[2017-07-05] MEDS ORDERED: methylPREDNISolone Depo 80 mg/ml Inj IM ONE (10:30)
--- NOTE | 2017-07-05 10:57 | CP.PCM.DIS ---
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 (7) CKD (chronic kidney disease) Status: Chronic Priority: Medium Hospital Course - Lab Results Lab Results: Micro Results 07/02/17 23:50 Blood Blood Culture - Preliminary NO GROWTH AFTER 48 HOURS 07/02/17 23:22 Blood Blood Culture - Preliminary NO GROWTH AFTER 48 HOURS Most Recent Lab Values WBC 10.4 K/uL (4.8-10.8) 07/05/17 05:55 RBC 4.07 Mil/uL (3.80-5.20) 07/05/17 05:55 Hgb 10.2 g/dL (12.0-16.0) L 07/05/17 05:55 Hct 32.3 % (34.0-47.0) L 07/05/17 05:55 MCV 79.2 fl (81.0-99.0) L 07/05/17 05:55 MCH 25.0 pg (27.0-31.0) L 07/05/17 05:55 MCHC 31.5 g/dL (33.0-37.0) L 07/05/17 05:55 RDW 16.7 % (11.5-14.5) H 07/05/17 05:55 Plt Count 274 K/uL (130-400) 07/05/17 05:55 MPV 7.8 fl (7.2-11.7) 07/03/17 06:30 Neut % (Auto) 80.6 % (50.0-75.0) H 07/02/17 23:22 Lymph % (Auto) 10.4 % (20.0-40.0) L 07/02/17 23:22 [place] % (Auto) 7.1 % (0.0-10.0) 07/02/17 23:22 Eos % (Auto) 1.4 % (0.0-4.0) 07/02/17 23:22 Baso % (Auto) 0.5 % (0.0-2.0) 07/02/17 23:22 Neut # 8.7 K/uL (1.8-7.0) H 07/02/17 23:22 Lymph # 1.1 K/uL (1.0-4.3) 07/02/17 23:22 [place] # 0.8 K/uL (0.0-0.8) 07/02/17 23:22 Eos # 0.2 K/uL (0.0-0.7) 07/02/17 23:22 Baso # 0.1 K/uL (0.0-0.2) 07/02/17 23:22 PT 11.6 Seconds (9.8-13.1) 07/02/17 23:22 INR 1.0 (0.9-1.2) 07/02/17 23:22 APTT 35.5 Seconds (25.6-37.1) 07/02/17 23:22 pCO2 59 mm/Hg (35-45) H 07/03/17 21:56 pO2 76 mm/Hg (80-100) L 07/03/17 21:56 HCO3 29.2 mmol/L (21-28) H 07/03/17 21:56 ABG pH 7.35 (7.35-7.45) 07/03/17 21:56 ABG Total CO2 34.4 mmol/L (22-28) H 07/03/17 21:56 ABG O2 Saturation 98.5 % (95-98) H 07/03/17 21:56 ABG O2 Content 14.6 ML/dL (15-23) L 07/03/17 21:56 ABG Base Excess 5.6 mmol/L (-2.0-3.0) H 07/03/17 21:56 ABG Hemoglobin 11.0 g/dL (11.7-17.4) L 07/03/17 21:56 ABG Carboxyhemoglobin 2.4 % (0.5-1.5) H 07/03/17 21:56 POC ABG HHb (Measured) 1.4 % (0.0-5.0) 07/03/17 21:56 ABG Methemoglobin 2.5 % (0.0-3.0) 07/03/17 21:56 ABG O2 Capacity 14.8 mL/dL (16-24) L 07/03/17 21:56 [place] Test Yes 07/03/17 21:56 A-a O2 Difference 135.0 mm/Hg 07/03/17 21:56 Hgb O2 Saturation 93.7 % (95.0-98.0) L 07/03/17 21:56 Vent Mode Bipap 07/03/17 05:07 Mechanical Rate 16 07/03/17 05:07 FiO2 40.0 % 07/03/17 21:56 Inspiratory BiPAP 12 07/03/17 05:07 Expiratory BiPAP 7 07/03/17 05:07 Crit Value Called To Dr liyah pugh 07/03/17 03:01 Crit Value Called By Singh 07/03/17 03:01 Crit Value Read Back Y 07/03/17 03:01 Blood Gas Notified Time 316 07/03/17 03:01 Sodium 138 mmol/l (132-148) 07/05/17 05:55 Potassium 4.4 MMOL/L (3.6-5.0) 07/05/17 05:55 Chloride 96 mmol/L (98-107) L 07/05/17 05:55 Carbon Dioxide 32 mmol/L (22-30) H 07/05/17 05:55 Anion Gap 14 (10-20) 07/05/17 05:55 BUN 24 mg/dl (7-17) H 07/05/17 05:55 Creatinine 1.3 mg/dl (0.7-1.2) H 07/05/17 05:55 Est GFR ( Amer) 47 07/05/17 05:55 Est GFR (Non-Af Amer) 39 07/05/17 05:55 Random Glucose 138 mg/dL (65-105) H 07/05/17 05:55 Lactic Acid 1.0 MMOL/L (0.7-2.1) 07/02/17 23:22 Calcium 10.1 mg/dL (8.4-10.2) 07/05/17 05:55 Total Bilirubin 0.8 mg/dl (0.2-1.3) 07/02/17 23:22 AST 43 U/L (14-36) H 07/02/17 23:22 ALT 43 U/L (9-52) 07/02/17 23:22 Alkaline Phosphatase 147 U/L (38-126) H D 07/02/17 23:22 Total Protein 7.4 G/DL (6.3-8.2) 07/02/17 23:22 Albumin 3.8 g/dL (3.5-5.0) 07/02/17 23:22 Globulin 3.5 gm/dL (2.2-3.9) 07/02/17 23:22 Albumin/Globulin Ratio 1.1 (1.0-2.1) 07/02/17 23:22 Urine Color Yellow (YELLOW) 07/03/17 08:09 Urine Clarity Slighty-cloudy (Clear) 07/03/17 08:09 Urine pH 5.0 (5.0-8.0) 07/03/17 08:09 Ur Specific [place] 1.013 (1.003-1.030) 07/03/17 08:09 Urine Protein 100 mg/dL (NEGATIVE) 07/03/17 08:09 Urine Glucose (UA) Neg mg/dL (Normal) 07/03/17 08:09 Urine Ketones Negative mg/dL (NEGATIVE) 07/03/17 08:09 Urine Blood Negative (NEGATIVE) 07/03/17 08:09 Urine Nitrate Negative (NEGATIVE) 07/03/17 08:09 Urine Bilirubin Negative (NEGATIVE) 07/03/17 08:09 Urine Urobilinogen 0.2-1.0 mg/dL (0.2-1.0) 07/03/17 08:09 Ur Leukocyte Esterase Small Jennifer/uL (Negative) 07/03/17 08:09 Urine RBC (Auto) < 1 /hpf (0-3) 07/03/17 08:09 Urine Microscopic WBC 6 /hpf (0-5) H 07/03/17 08:09 Ur Squamous Epith Cells 1 /hpf (0-5) 07/03/17 08:09 Ur Renal Epithelial Cell < 1 /hpf (0-3) 07/03/17 08:09 Urine Bacteria Rare (<OCC) 07/03/17 08:09 Hyaline Casts 0-2 /hpf (0-2) 07/03/17 08:09 Influenza Typ A,B (EIA) Negative for flu a/b (NEGATIVE) 07/02/17 23:22 - Hospital Course Hospital Course: 87 y/o female with PMHx significant for COPD on home O2, A fib, CHF, and CKD III , came in complaining of generalized weakness and decreased PO intake. The decreased PO intake has been ongoing for a little while, but the weakness appeared on day of admission. Patient was unable to get up and walk or feed herself because of generalized weakness, and she was becoming fatigued and repeatedly falling asleep when trying to do any activity. In the hospital , the patient became significantly SOB , with low O2 sat and PCO2 84 PO2 68 while on O2 via NC. She was placed on BIpap with improvement of her dyspnea. Pt has not been consistently compliant with her Bipap at home. Pulmonary consulted. 1.Dehydration/ generalized weakness with TOMA IVF hydration 2. Acute on chronic respiratory failure with hypoxemia and hypercarbia in the setting of severe COPD patient is on home O2 and bipap q hs pulmonary consulted placed on Bipap and doing well Continue Solumedrol ,Xopenex, Spiriva started Diamox 3.Chronic Afib rate controlled on digoxin, Toprol 4. CHF , systolic and diastolic dysfunction, stable cont Digoxin, Norvasc and BB 5.Frail / cachetic BMI 19 nutrition consult PT consulted- Home PT 6. Hypertension controlled on Metoprolol, Norvasc,isosorbide 7.Elderly Delirium in acute care facility continue Bipap use maintain safety measures keep patient close to nursing station reorientation 8.Anxiety continue xanax patient has not been taking depakote Will d/c depakote 9. DVT / GI prophylaxis Protonix/ Heparin SCD Discharge Exam - Head Exam Head Exam: ATRAUMATIC, NORMAL INSPECTION, NORMOCEPHALIC - Eye Exam Eye Exam: EOMI, Normal appearance Pupil Exam: NORMAL ACCOMODATION - ENT Exam ENT Exam: Mucous Membranes Moist, Normal External Ear Exam - Neck Exam Neck exam: Full Rom - Respiratory Exam Respiratory Exam: Decreased Breath Sounds, Rhonchi, NORMAL BREATHING PATTERN. absent: Wheezes, Respiratory Distress - Cardiovascular Exam Cardiovascular Exam: Irregular Rhythm, +S1, +S2 - GI/Abdominal Exam GI & Abdominal Exam: Normal Bowel Sounds, Soft. absent: Tenderness - Extremities Exam Extremities exam: normal capillary refill, pedal pulses present - Back Exam Back exam: absent: CVA tenderness (L), CVA tenderness (R) - Neurological Exam Neurological exam: Alert Additional comments: oriented to person and place - Psychiatric Exam Psychiatric exam: Normal Affect, Normal Mood - Skin Skin Exam: Dry, Normal Color, Warm Discharge Plan - Follow Up Plan Condition: IMPROVED Disposition: HOME/ ROUTINE Instructions: COPD (Chronic Obstructive Pulmonary Disease) (DC), BiPAP (GEN) Additional Instructions: follow up on tuesday07/08/17 with . important to use the bipap mask at night. Home RN and PT-[facility] [phone] Referrals: Marty Bettencourt MD [Staff Provider] -
--- NOTE | 2017-07-06 08:01 | CARD ---
APPROVED REPORT EKG Measurement Heart [id number] <Conclusion> Atrial fibrillation Left axis deviation Left BBB Abnormal ECG
== END 2017-07-05 16:05 | disposition home health service (06) ==
LOC: H.ER 22:27 → H.ERHOLD 07-03 00:25 → H.MEDSURG1 07-03 02:39
PROVIDERS: ADMIT Internal Medicine; ATTEND Internal Medicine
DX: J96.22 Acute and chronic respiratory failure with hypercapnia (principal); J44.1 Chronic obstructive pulmonary disease with (acute) exacerbation; I13.0 Hypertensive heart and chronic kidney disease with heart failure and stage 1 through stage 4 chronic kidney disease, or unspecified chronic kidney disease; I50.40 Unspecified combined systolic (congestive) and diastolic (congestive) heart failure; E78.00 Pure hypercholesterolemia, unspecified; E86.0 Dehydration; F41.9 Anxiety disorder, unspecified; G47.30 Sleep apnea, unspecified; I25.10 Atherosclerotic heart disease of native coronary artery without angina pectoris; I25.2 Old myocardial infarction; I48.2 Chronic atrial fibrillation; J96.21 Acute and chronic respiratory failure with hypoxia; K29.70 Gastritis, unspecified, without bleeding; M81.0 Age-related osteoporosis without current pathological fracture; N17.9 Acute kidney failure, unspecified; N18.3 Chronic kidney disease, stage 3 (moderate); R64 Cachexia; Z68.1 Body mass index [BMI] 19.9 or less, adult; Z79.82 Long term (current) use of aspirin; Z79.899 Other long term (current) drug therapy; Z87.01 Personal history of pneumonia (recurrent); Z87.891 Personal history of nicotine dependence; Z90.49 Acquired absence of other specified parts of digestive tract; Z99.81 Dependence on supplemental oxygen; D64.9 Anemia, unspecified; M19.90 Unspecified osteoarthritis, unspecified site; R91.1 Solitary pulmonary nodule
CPT/HCPCS: 36415; 71045; 80048; 80053; 81003; 82803; 83605; 85025; 85027; 85610; 85730; 87040; 87804; 94640; 94660; 96374; 99284; G0378; J1040; J1644; J2405; J2920; J2930; J7040

== ENCOUNTER 2017-07-16 09:48 | Inpatient (IN) | payer MEDICARE, MEDICAID ==
[2017-07-16 09:49] VITALS: PULSE 94
[2017-07-16] MEDS ORDERED: DOPamine 400mg/250ml D5W 400 MG/250 ML BAG IV ONE ×2 (10:05→19:40)
[2017-07-16 10:25] LABS: ABG ALLEN TEST YES; ARTERIAL BLOOD GAS HCO3 15.1 mmol/L (21-28); ARTERIAL BLOOD GAS O2 SAT 99.7 % (95-98); ARTERIAL BLOOD GAS PCO2 79 mm/Hg (35-45); ARTERIAL BLOOD GAS PH 6.99 (7.35-7.45); ARTERIAL BLOOD GAS PO2 527 mm/Hg (80-100); ARTERIAL BLOOD GAS TCO2 21.4 mmol/L (22-28)
[2017-07-16 10:26] LABS: BASO # 0.3 K/uL (0.0-0.2); EOS # 0.1 K/uL (0.0-0.7); EOS % 0.3 % (0.0-4.0); HEMOGLOBIN 9.3 g/dL (12.0-16.0); LYMPH # 5.9 K/uL (1.0-4.3); LYMPH % 20.5 % (20.0-40.0); MEAN CELL VOLUME 83.9 fl (81.0-99.0); MEAN CORPUSCULAR HEMOGLOBIN 24.1 pg (27.0-31.0); MEAN CORPUSCULAR HGB CONC 28.7 g/dL (33.0-37.0); MEAN PLATELET VOLUME 8.2 fl (7.2-11.7); MONO # 1.2 K/uL (0.0-0.8); MONO % 4.1 % (0.0-10.0); NEUT # 21.1 K/uL (1.8-7.0); NEUT % 74.1 % (50.0-75.0); NRBC % 0.1 % (0.0-0.0); RBC 3.86 Mil/uL (3.80-5.20); RED CELL DISTRIBUTION WIDTH 17.5 % (11.5-14.5)
[2017-07-16] MEDS ORDERED: Sodium Bicarbonate 7.5% (0.9 MEQ/ML) 50ML INJ IV ONE ×2 (10:44→13:27)
[2017-07-16] MEDS ORDERED: Sodium Chloride 0.9% 1,000 ML IV ONE (10:44)
[2017-07-16] MEDS ORDERED: levoFLOXacin 750 mg in D5W 750 MG/150 ML BAG IVPB SCH (10:45)
--- NOTE | 2017-07-16 10:46 | RAD ---
PROCEDURE: CHEST RADIOGRAPH, 1 VIEW HISTORY: cardiac arrest COMPARISON: Comparison made with prior study 07/02/2017. FINDINGS: In situ ETT, tip which lies approximately 4.7 cm above angela. LUNGS: Lungs remain hyperinflated which could be secondary to COPD or emphysema. The interstitial markings are markedly increased and exhibit micronodular appearance - progressed since prior study. Rule out developing pulmonary edema or interstitial infiltrates superimposed on chronic interstitial fibrosis. PLEURA: No pneumothorax or pleural fluid seen. CARDIOVASCULAR: Heart size is upper limits of normal. OSSEOUS STRUCTURES: No significant abnormalities. VISUALIZED UPPER ABDOMEN: Normal. OTHER FINDINGS: None. IMPRESSION: In situ ETT as above. Lungs remain hyperinflated which could be secondary to COPD or emphysema. The interstitial markings are markedly increased and exhibit micronodular appearance - progressed since prior study. Rule out developing pulmonary edema or interstitial infiltrates superimposed on chronic interstitial fibrosis.
[2017-07-16] MEDS ORDERED: levoFLOXacin 750 mg in D5W 750 MG/150 ML BAG IVPB ONE (10:54)
[2017-07-16 11:10] LABS: INR 1.3 (0.9-1.2); PARTIAL THROMBOPLASTIN TIME 59.9 Seconds (25.6-37.1)
[2017-07-16] MEDS ORDERED: Piperacillin/Tazobact 4.5 GM in Sodium Chloride 0.9% 100 ML IVPB STA (11:20)
[2017-07-16] MEDS ORDERED: Azithromycin 500 MG in Sodium Chloride 0.9% 250 ML IVPB STA (11:20)
[2017-07-16 11:21] LABS: URINE BILIRUBIN NEGATIVE (NEGATIVE); URINE BLOOD NEGATIVE (NEGATIVE); URINE CLARITY CLEAR (Clear); URINE COLOR YELLOW (YELLOW); URINE GLUCOSE (UA) NEG (Normal); URINE LEUKOCYTE ESTERASE NEG Leu/uL (Negative); URINE NITRATE NEGATIVE (NEGATIVE); URINE PROTEIN 100 mg/dL (NEGATIVE); URINE UROBILINOGEN 0.2-1.0 mg/dL (0.2-1.0)
--- NOTE | 2017-07-16 11:38 | ED PDOC ---
HPI: Cardiac Arrest Time Seen by Provider: 07/16/17 10:00 Chief Complaint (Nursing): Cardiac Arrest History Per: EMS, Family Reason For Code Blue: Full Arrest Circumstances: Brought To ED By EMS Arrest Witnessed By: No One CPR Initiated Prior To MD Arrival?: Yes Down-Time Before ACLS: Unknown (possible 20 to 30 minutes) Treatment Initiated Prior To MD Arrival: CPR, BVM Ventilations, Intubation, ACLS Medication Initiation (epi x 4) Medications Given Prior To MD Arrival: Epinephrine Additional Complaint(s): per family pt has respiratory difficulty all night seen by pmd a few days ago and advise hospital admission but pt refused. - Initial Findings Mentation: Unresponsive Respirations: None (Assisted) Pulse: Weak Rhythm: Other (slow afib) Past Medical History Reviewed: Historical Data, Nursing Documentation, Vital Signs Vital Signs: Last Vital Signs Temp 90.9 F L 07/16/17 16:00 Pulse 97 H 07/16/17 16:00 Resp 20 07/16/17 16:00 BP 87/51 L 07/16/17 16:00 Pulse Ox 99 07/16/17 16:00 - Medical History PMH: Anemia, Anxiety, Arthritis, Atrial Fibrillation, CAD, Cardia Arrhythmia, CHF, COPD, Diverticulitis, Gastritis, HTN, Hypercholesterolemia, Osteoporosis, Pneumonia, Chronic Kidney Disease (CKD stage 3), Sleep Apnea Denies: Asthma, Bronchitis, Emphysema, HIV, Hypothyroidism, Mitral Valve Prolapse, Peripheral Edema, Pulmonary Embolism, Rheumatoid Arthritis - Surgical History Surgical History: Appendectomy Denies: Pacemaker - Family History Family History: States: Unknown Family Hx - Living Arrangements Living Arrangements: With Family - Social History Current smoker - smoking cessation education provided: No Ex-Smoker (has not smoked in the last 12 months): Yes - Home Medications Home Medications: Ambulatory Orders Medication Instructions Recorded Alprazolam [Xanax] 0.5 mg PO TID 07/30/16 Pantoprazole Sodium [Protonix] 40 mg PO DAILY 01/17/17 Aspirin [Ecotrin] 81 mg PO DAILY #30 tabec 03/17/17 Atorvastatin [Lipitor] 40 mg PO HS #30 tab 03/17/17 Digoxin [Digitek] 125 mcg PO DAILY #30 tablet 03/17/17 Isosorbide Mononitrate [Imdur] 60 mg PO DAILY #30 tab 09/28/17 Metoprolol Succinate [Toprol XL] 25 mg PO DAILY #30 tab 03/17/17 amLODIPine [Norvasc] 10 mg PO DAILY #30 tab 03/17/17 Multimineral/Multivitamin 1 tab PO DAILY tab 07/05/17 [Therapeutic-M Tab] Tiotropium [Spiriva] 18 mcg IH HS cap 07/05/17 Albuterol 0.083% [Albuterol 3 ml NEB QID 07/16/17 Sulfate 3 Ml] Docusate [Colace] 100 mg PO TID 07/16/17 Hydrochlorothiazide [Microzide] 25 mg PO DAILY 07/16/17 - Allergies Allergies/Adverse Reactions: Allergies Allergy/AdvReac Type Severity Reaction Status Date / Time No Known Allergies Allergy Verified 07/30/16 16:17 Review of Systems Review Of Systems: ROS cannot be obtained secondary to pt's inabilty to answer questions. Physical Exam - Reviewed Nursing Documentation Reviewed: Yes Vital Signs Reviewed: Yes - Physical Exam Appears: Positive for: In Acute Distress (severe) Head Exam: Positive for: ATRAUMATIC, NORMAL INSPECTION, NORMOCEPHALIC Skin: Positive for: Pallor. Negative for: Diaphoresis, Rash, Jaundice, Mottled , Cyanosis Eye Exam: Positive for: Other (pupils fixed and dilated) ENT: Positive for: Other (intubated with et tube ) Neck: Positive for: Trachea Midline Cardiovascular/Chest: Positive for: Bradycardia, Irregularly Irregular. Negative for: Edema, Gallop, JVD, Murmur, Tachycardia Respiratory: Positive for: Wheezing (mild scattered), Respiratory Distress ( severe) Pulses-Carotid (L): 2+ Pulses-Carotid (R): 2+ Pulses-Dorsalis Pedis (L): 2+ Pulses-Dorsalis Pedis (R): 2+ Pulses-Femoral (L): 2+ Pulses-Femoral (R): 2+ Pulses-Post. Tibialis (L): 2+ Pulses-Post. Tibialis (R): 2+ Pulses-Radial (L): 2+ Pulses-Radial (R): 2+ Gastrointestinal/Abdominal: Positive for: Bowel Sounds, Soft, Other (diffuse scaring). Negative for: Tenderness Back: Positive for: Normal Inspection. Negative for: L CVA Tenderness, R CVA Tenderness Extremity: Positive for: Normal ROM. Negative for: Tenderness, Pedal Edema, Calf Tenderness, Capillary Refill, Deformity, Swelling Neurologic/Psych: Positive for: Other (gcs 3). Negative for: Alert, telesales consultant II-XII , Oriented, Motor/Sensory Deficits - Laboratory Results Result Diagrams: 07/16/17 10:05 07/16/17 10:05 - ECG ECG: Positive for: Interpreted By Ak ECG Rhythm: Positive for: Atrial Fibrillation (63), Right Bundle Branch Block, ST/T Changes (twi in lateral leads) Interpretation Of Abn EKG: pt hasa prev left bbbb O2 Sat by Pulse Oximetry: 100 Pulse Ox Interpretation: Normal - Radiology X-Ray: Interpreted by Me X-Ray Interpretation: Infiltrates (bilateraal interstitial infiltrates ett tube in appropriate place, nml cardiac and mediastinum silhouette) - Progress ED Course And Treament: discussed with manuel carreno and ping, pt started on dopamine, given antibiotics. dr richardson discussed with family pt will be dnr and desire supportive care. no other invasive treatment seen in the ed by dr feng and dr richardson. Re-evaluation Time: 11:48 Condition: Improved Procedures - Central Line Central Line Lumen: triple Central Line Procedure: betadine prep, sterile drapes applied, sterile dressing applied Central Line Postion: femoral (R) Anesthesia: Lidocaine cc's of anesthesia: 2 Complications: none Central Line Post Position: sutured, good blood return (utilized to snap devise) Progress: performed under sterile technique Disposition - Clinical Impression Clinical Impression: Cardiac arrest, Sepsis, Pneumonia, Acute hypercapnic respiratory failure - Patient ED Disposition Is Patient to be Admitted: No - Disposition Disposition Time: 11:30 Condition: CRITICAL
[2017-07-16 11:41] LABS: WHITE BLOOD COUNT 28.5 K/uL (4.8-10.8)
[2017-07-16 11:45] LABS: TROPONIN I 0.055 ng/mL (0.00-0.120)
--- NOTE | 2017-07-16 11:50 | CP.CCUPN ---
CCU Subjective - Physician Review Events Since Last Encounter (Free Text): 07/16/17 11:46 87 female with history of COPD on home O2, CAD, CHF/cardiomyopathy, A Fib, HTN, anemia, lung ca, CKD brought by EMS after she was found unresponsive with cardiopulmonary arrest, asystoly with no respiration, patient was resuscitated and intubated by EMS in the field, patient currently on ventilator wit no response to any stimuli. Patient made DNR by family CCU Objective - Vital Signs / Intake & Output Vital Signs (Last 4 hours): Vital Signs Temp Pulse Resp BP Pulse Ox 07/16/17 11:41 100 07/16/17 11:08 50 L 22 95/42 L 100 07/16/17 10:33 57 L 15 89/48 L 100 07/16/17 10:28 57 L 16 115/61 100 07/16/17 10:19 34 L 11 L 96/49 L 100 07/16/17 10:16 40 L 11 L 95/33 L 100 07/16/17 10:11 37 L 94/44 L 14 L 07/16/17 10:05 30 L 101/52 L 100 07/16/17 10:00 41 L 07/16/17 09:50 95.5 F L 30 L 11 L 111/66 Intake and Output (Last 8hrs): Intake & Output 07/15/17 07/16/17 07/16/17 22:59 06:59 14:59 Intake Total 0 Balance 0 Weight 110 lb Intake: IV 0 - Physical Exam Head: Positive for: Atraumatic, Normocephalic Pupils: Positive for: Non-Reactive Conjunctiva: Positive for: Normal Ears: Positive for: Normal Mouth: Positive for: Moist Mucous Membranes Nose (External): Positive for: Atraumatic Neck: Positive for: Normal Range of Motion Respiratory/Chest: Positive for: Rales Cardiovascular: Positive for: Irregular Rhythm Abdomen: Positive for: Normal Bowel Sounds Back: Positive for: Normal Inspection Upper Extremity: Positive for: Normal Inspection Lower Extremity: Positive for: Normal Inspection Neurological: Positive for: Other (on ventilator, no response to any stimuli) - Medications Active Medications: Active Medications Generic Name Dose Route Start Last Admin Trade Name Freq PRN Reason Stop Dose Admin Levofloxacin/Dextrose 750 mg in 150 mls @ 100 mls/hr 07/16/17 10:45 07/16/17 11:00 Levaquin 750mg IVPB 100 mls/hr DAILY JAQUI Administration Protocol Calcium Gluconate 1,000 mg/ 110 mls @ 100 mls/hr 07/16/17 11:03 07/16/17 11: 34 Sodium Chloride IVPB 07/16/17 12:08 100 mls/hr ONCE ONE Administration Azithromycin 500 mg/ Sodium 250 mls @ 250 mls/hr 07/16/17 11:20 Chloride IVPB 07/16/17 12:19 STAT STA Protocol Piperacillin Sod/Tazobactam 100 mls @ 100 mls/hr 07/16/17 11:20 Sod 4.5 gm/ Sodium Chloride IVPB 07/16/17 12:19 STAT STA Protocol - Patient Studies Lab Studies: Lab Studies 07/16/17 07/16/17 07/16/17 Range/Units 10:10 10:05 10:05 WBC (4.8-10.8) K/uL RBC (3.80-5.20) Mil/uL Hgb (12.0-16.0) g/dL Hct (34.0-47.0) % MCV (81.0-99.0) fl MCH (27.0-31.0) pg MCHC (33.0-37.0) g/dL RDW (11.5-14.5) % Plt Count (130-400) K/uL MPV (7.2-11.7) fl Neut % (Auto) (50.0-75.0) % Lymph % (Auto) (20.0-40.0) % [place] % (Auto) (0.0-10.0) % Eos % (Auto) (0.0-4.0) % Baso % (Auto) (0.0-2.0) % Neut # (1.8-7.0) K/uL Lymph # (1.0-4.3) K/uL [place] # (0.0-0.8) K/uL Eos # (0.0-0.7) K/uL Baso # (0.0-0.2) K/uL PT 14.0 H (9.8-13.1) Seconds INR 1.3 H (0.9-1.2) APTT 59.9 H (25.6-37.1) Seconds D-Dimer, Quantitative 5952 H (0-230) ng/mlDDU pCO2 (35-45) mm/Hg pO2 (80-100) mm/Hg HCO3 (21-28) mmol/L ABG pH (7.35-7.45) ABG Total CO2 (22-28) mmol/L ABG O2 Saturation (95-98) % ABG Base Excess (-2.0-3.0) mmol/L Carrillo Test ABG Potassium (3.6-5.2) mmol/L A-a O2 Difference mm/Hg Sodium (132-148) mmol/L Chloride (98-107) mmol/L Glucose (65-105) mg/dL Lactate (0.7-2.1) mmol/L Vent Mode Mechanical Rate FiO2 % Tidal Volume PEEP Blood Gas Comments Crit Value Called To Crit Value Called By Crit Value Read Back Blood Gas Notified Time POC Glucose (mg/dL) (65-110) mg/dL Troponin I (0.00-0.120) ng/mL NT-Pro-B Natriuret Pep (0-900) pg/ml Arterial Blood Potassium (3.6-5.2) mmol/L Urine Color Yellow (YELLOW) Urine Clarity Clear (Clear) Urine pH 5.0 (5.0-8.0) Ur Specific [place] 1.015 (1.003-1.030) Urine Protein 100 (NEGATIVE) mg/dL Urine Glucose (UA) Neg (Normal) mg/dL Urine Ketones Negative (NEGATIVE) mg/dL Urine Blood Negative (NEGATIVE) Urine Nitrate Negative (NEGATIVE) Urine Bilirubin Negative (NEGATIVE) Urine Urobilinogen 0.2-1.0 (0.2-1.0) mg/dL Ur Leukocyte Esterase Neg (Negative) Jennifer/uL Urine RBC (Auto) 1 (0-3) /hpf Urine Microscopic WBC < 1 (0-5) /hpf Digoxin 1.6 (0.8-2.0) ng/mL 07/16/17 07/16/17 07/16/17 Range/Units 10:05 10:05 10:04 WBC 28.5 H D (4.8-10.8) K/uL RBC 3.86 (3.80-5.20) Mil/uL Hgb 9.3 L (12.0-16.0) g/dL Hct 32.4 L (34.0-47.0) % MCV 83.9 D (81.0-99.0) fl MCH 24.1 L (27.0-31.0) pg MCHC 28.7 L (33.0-37.0) g/dL RDW 17.5 H (11.5-14.5) % Plt Count 349 (130-400) K/uL MPV 8.2 (7.2-11.7) fl Neut % (Auto) 74.1 (50.0-75.0) % Lymph % (Auto) 20.5 (20.0-40.0) % [place] % (Auto) 4.1 (0.0-10.0) % Eos % (Auto) 0.3 (0.0-4.0) % Baso % (Auto) 1.0 (0.0-2.0) % Neut # 21.1 H (1.8-7.0) K/uL Lymph # 5.9 H (1.0-4.3) K/uL [place] # 1.2 H (0.0-0.8) K/uL Eos # 0.1 (0.0-0.7) K/uL Baso # 0.3 H (0.0-0.2) K/uL PT (9.8-13.1) Seconds INR (0.9-1.2) APTT (25.6-37.1) Seconds D-Dimer, Quantitative (0-230) ng/mlDDU pCO2 79 H* (35-45) mm/Hg pO2 527 H (80-100) mm/Hg HCO3 15.1 L (21-28) mmol/L ABG pH 6.99 L* (7.35-7.45) ABG Total CO2 21.4 L (22-28) mmol/L ABG O2 Saturation 99.7 H (95-98) % ABG Base Excess -12.6 L (-2.0-3.0) mmol/L Carrillo Test Yes ABG Potassium 6.3 H* (3.6-5.2) mmol/L A-a O2 Difference 87.0 mm/Hg Sodium 133.0 (132-148) mmol/L Chloride 99.0 (98-107) mmol/L Glucose 280 H (65-105) mg/dL Lactate 10.2 H* (0.7-2.1) mmol/L Vent Mode Prvc/ac Mechanical Rate 14 FiO2 100.0 % Tidal Volume 500 PEEP 5 Blood Gas Comments Prvc/ac14/vt500/100%/+5peep Crit Value Called To Dr.alex josephine toure Crit Value Called By Rowan Crit Value Read Back Y Blood Gas Notified Time 1024 POC Glucose (mg/dL) (65-110) mg/dL Troponin I 0.0550 (0.00-0.120) ng/mL NT-Pro-B Natriuret Pep 6720 H (0-900) pg/ml Arterial Blood Potassium 6.3 H* (3.6-5.2) mmol/L Urine Color (YELLOW) Urine Clarity (Clear) Urine pH (5.0-8.0) Ur Specific [place] (1.003-1.030) Urine Protein (NEGATIVE) mg/dL Urine Glucose (UA) (Normal) mg/dL Urine Ketones (NEGATIVE) mg/dL Urine Blood (NEGATIVE) Urine Nitrate (NEGATIVE) Urine Bilirubin (NEGATIVE) Urine Urobilinogen (0.2-1.0) mg/dL Ur Leukocyte Esterase (Negative) Jnenifer/uL Urine RBC (Auto) (0-3) /hpf Urine Microscopic WBC (0-5) /hpf Digoxin (0.8-2.0) ng/mL 07/16/17 Range/Units 09:52 WBC (4.8-10.8) K/uL RBC (3.80-5.20) Mil/uL Hgb (12.0-16.0) g/dL Hct (34.0-47.0) % MCV (81.0-99.0) fl MCH (27.0-31.0) pg MCHC (33.0-37.0) g/dL RDW (11.5-14.5) % Plt Count (130-400) K/uL MPV (7.2-11.7) fl Neut % (Auto) (50.0-75.0) % Lymph % (Auto) (20.0-40.0) % [place] % (Auto) (0.0-10.0) % Eos % (Auto) (0.0-4.0) % Baso % (Auto) (0.0-2.0) % Neut # (1.8-7.0) K/uL Lymph # (1.0-4.3) K/uL [place] # (0.0-0.8) K/uL Eos # (0.0-0.7) K/uL Baso # (0.0-0.2) K/uL PT (9.8-13.1) Seconds INR (0.9-1.2) APTT (25.6-37.1) Seconds D-Dimer, Quantitative (0-230) ng/mlDDU pCO2 (35-45) mm/Hg pO2 (80-100) mm/Hg HCO3 (21-28) mmol/L ABG pH (7.35-7.45) ABG Total CO2 (22-28) mmol/L ABG O2 Saturation (95-98) % ABG Base Excess (-2.0-3.0) mmol/L Carrillo Test ABG Potassium (3.6-5.2) mmol/L A-a O2 Difference mm/Hg Sodium (132-148) mmol/L Chloride (98-107) mmol/L Glucose (65-105) mg/dL Lactate (0.7-2.1) mmol/L Vent Mode Mechanical Rate FiO2 % Tidal Volume PEEP Blood Gas Comments Crit Value Called To Crit Value Called By Crit Value Read Back Blood Gas Notified Time POC Glucose (mg/dL) 235 H (65-110) mg/dL Troponin I (0.00-0.120) ng/mL NT-Pro-B Natriuret Pep (0-900) pg/ml Arterial Blood Potassium (3.6-5.2) mmol/L Urine Color (YELLOW) Urine Clarity (Clear) Urine pH (5.0-8.0) Ur Specific [place] (1.003-1.030) Urine Protein (NEGATIVE) mg/dL Urine Glucose (UA) (Normal) mg/dL Urine Ketones (NEGATIVE) mg/dL Urine Blood (NEGATIVE) Urine Nitrate (NEGATIVE) Urine Bilirubin (NEGATIVE) Urine Urobilinogen (0.2-1.0) mg/dL Ur Leukocyte Esterase (Negative) Jennifer/uL Urine RBC (Auto) (0-3) /hpf Urine Microscopic WBC (0-5) /hpf Digoxin (0.8-2.0) ng/mL Laboratory Results - last 24 hr 07/16/17 07/16/17 07/16/17 09:52 10:04 10:05 WBC RBC Hgb Hct MCV MCH MCHC RDW Plt Count MPV Neut % (Auto) Lymph % (Auto) [place] % (Auto) Eos % (Auto) Baso % (Auto) Neut # Lymph # [place] # Eos # Baso # PT INR APTT D-Dimer, Quantitative pCO2 79 H* pO2 527 H HCO3 15.1 L ABG pH 6.99 L* ABG Total CO2 21.4 L ABG O2 Saturation 99.7 H ABG Base Excess -12.6 L Carrillo Test Yes ABG Potassium 6.3 H* A-a O2 Difference 87.0 Sodium 133.0 Chloride 99.0 Glucose 280 H Lactate 10.2 H* Vent Mode Prvc/ac Mechanical Rate 14 FiO2 100.0 Tidal Volume 500 PEEP 5 Blood Gas Comments Prvc/ac14/vt500/100%/+5peep Crit Value Called To Dr.alex josephine toure Crit Value Called By Rowan Cripernell Value Read Back Y Blood Gas Notified Time 1024 POC Glucose (mg/dL) 235 H Troponin I 0.0550 NT-Pro-B Natriuret Pep 6720 H Arterial Blood Potassium 6.3 H* Urine Color Urine Clarity Urine pH Ur Specific [place] Urine Protein Urine Glucose (UA) Urine Ketones Urine Blood Urine Nitrate Urine Bilirubin Urine Urobilinogen Ur Leukocyte Esterase Urine RBC (Auto) Urine Microscopic WBC Digoxin 07/16/17 07/16/17 07/16/17 10:05 10:05 10:05 WBC 28.5 H D RBC 3.86 Hgb 9.3 L Hct 32.4 L MCV 83.9 D MCH 24.1 L MCHC 28.7 L RDW 17.5 H Plt Count 349 MPV 8.2 Neut % (Auto) 74.1 Lymph % (Auto) 20.5 [place] % (Auto) 4.1 Eos % (Auto) 0.3 Baso % (Auto) 1.0 Neut # 21.1 H Lymph # 5.9 H [place] # 1.2 H Eos # 0.1 Baso # 0.3 H PT 14.0 H INR 1.3 H APTT 59.9 H D-Dimer, Quantitative 5952 H pCO2 pO2 HCO3 ABG pH ABG Total CO2 ABG O2 Saturation ABG Base Excess Carrillo Test ABG Potassium A-a O2 Difference Sodium Chloride Glucose Lactate Vent Mode Mechanical Rate FiO2 Tidal Volume PEEP Blood Gas Comments Crit Value Called To Crit Value Called By Crit Value Read Back Blood Gas Notified Time POC Glucose (mg/dL) Troponin I NT-Pro-B Natriuret Pep Arterial Blood Potassium Urine Color Urine Clarity Urine pH Ur Specific [place] Urine Protein Urine Glucose (UA) Urine Ketones Urine Blood Urine Nitrate Urine Bilirubin Urine Urobilinogen Ur Leukocyte Esterase Urine RBC (Auto) Urine Microscopic WBC Digoxin 1.6 07/16/17 10:10 WBC RBC Hgb Hct MCV MCH MCHC RDW Plt Count MPV Neut % (Auto) Lymph % (Auto) [place] % (Auto) Eos % (Auto) Baso % (Auto) Neut # Lymph # [place] # Eos # Baso # PT INR APTT D-Dimer, Quantitative pCO2 pO2 HCO3 ABG pH ABG Total CO2 ABG O2 Saturation ABG Base Excess Carrillo Test ABG Potassium A-a O2 Difference Sodium Chloride Glucose Lactate Vent Mode Mechanical Rate FiO2 Tidal Volume PEEP Blood Gas Comments Crit Value Called To Crit Value Called By Crit Value Read Back Blood Gas Notified Time POC Glucose (mg/dL) Troponin I NT-Pro-B Natriuret Pep Arterial Blood Potassium Urine Color Yellow Urine Clarity Clear Urine pH 5.0 Ur Specific [place] 1.015 Urine Protein 100 Urine Glucose (UA) Neg Urine Ketones Negative Urine Blood Negative Urine Nitrate Negative Urine Bilirubin Negative Urine Urobilinogen 0.2-1.0 Ur Leukocyte Esterase Neg Urine RBC (Auto) 1 Urine Microscopic WBC < 1 Digoxin EKG/Cardiology Studies: Cardiology / EKG Studies 07/16/17 10:00 ELECTROCARDIOGRAM Stat Comment: Mode Of Transportation: Reason For Exam: cardiac arrest Fingerstick Blood Sugar Results: 235 Assessment/Plan - Assessment and Plan (Free Text) Assessment: 87 female with history of COPD on home O2, CAD, CHF/cardiomyopathy, A Fib, HTN, anemia, lung ca, CKD brought by EMS after she was found unresponsive with cardiopulmonary arrest, asystoly with no respiration, patient was resuscitated and intubated by EMS in the field, patient currently on ventilator with no response to any stimuli. Patient made DNR by family. Cardiopulmonay arrest R/O pneumonia, R/O NC, cardiac arrythmia, endstage lung and heart disease, ?anoxic encephalopathy - Ventilatory support - Antibiotics - Correct electrolytes - Follow up labs - Cardiology consult - Multiorgan failure, poor prognosis, DNR Critical care 35 min
[2017-07-16 11:53] LABS: ALB/GLOB RATIO 1.1 (1.0-2.1); ALBUMIN 2.8 g/dL (3.5-5.0); CALCIUM 8.5 mg/dL (8.4-10.2)
--- NOTE | 2017-07-16 11:59 | CP.PCM.HP ---
History of Present Illness - History of Present Illness History of Present Illness: 87 yo female with history of COPD with home O2, AFib, CHF, HTN and CKD brought in by EMS after she was found unresponsive by relative. CPR was done on site and patient was intubated. As per relative who lives with her, patient was lying in bed when the relative left her to make coffee. When she came back into the room she noted the patient not breathing, so she called 911. Present on Admission - Present on Admission Any Indicators Present on Admission: No History of DVT/PE: No History of Uncontrolled Diabetes: No Urinary Catheter: No Decubitus Ulcer Present: No Review of Systems - Review of Systems Systems not reviewed;Unavailable: Intubated Past Patient History - Infectious Disease Hx of Infectious Diseases: None - Tetanus Immunizations Tetanus Immunization: Unknown - Past Medical History & Family History Past Medical History?: Yes - Past Social History Smoking Status: Former Smoker - CARDIAC Hx Atrial Fibrillation: Yes Hx Cardia Arrhythmia: Yes Hx Congestive Heart Failure: Yes Hx Hypercholesterolemia: Yes Hx Hypertension: Yes Hx Mitral Valve Prolapse: No Hx Pacemaker: No Hx Peripheral Edema: No - PULMONARY Hx Asthma: No Hx Bronchitis: No Hx Chronic Obstructive Pulmonary Disease (COPD): Yes Hx Emphysema: No Hx Pneumonia: Yes Hx Pulmonary Embolism: No Hx Sleep Apnea: Yes - NEUROLOGICAL Hx Neurological Disorder: No - HEENT Hx HEENT Problems: Yes - RENAL Hx Chronic Kidney Disease: Yes (CKD stage 3) - ENDOCRINE/METABOLIC Hx Hypothyroidism: No - HEMATOLOGICAL/ONCOLOGICAL Hx Anemia: Yes Hx Human Immunodeficiency Virus (HIV): No - INTEGUMENTARY Hx Dermatological Problems: No - MUSCULOSKELETAL/RHEUMATOLOGICAL Hx Arthritis: Yes Hx Osteoporosis: Yes Hx Rheumatoid Arthritis: No - GASTROINTESTINAL Hx Diverticulitis: Yes Hx Gastritis: Yes - GENITOURINARY/GYNECOLOGICAL Hx Genitourinary Disorders: No - PSYCHIATRIC Hx Anxiety: Yes - SURGICAL HISTORY Hx Appendectomy: Yes - ANESTHESIA Hx Anesthesia: Yes Hx Anesthesia Reactions: No Hx Malignant Hyperthermia: No Meds Allergies/Adverse Reactions: Allergies Allergy/AdvReac Type Severity Reaction Status Date / Time No Known Allergies Allergy Verified 07/30/16 16:17 Physical Exam - Constitutional Appears: Other (intubated) - Head Exam Head Exam: ATRAUMATIC - Eye Exam Eye Exam: absent: PERRL (both pupils dilated and non-reactive) - ENT Exam ENT Exam: Mucous Membranes Moist - Neck Exam Neck exam: Negative for: Meningismus - Respiratory Exam Respiratory Exam: Rhonchi. absent: Wheezes - Cardiovascular Exam Cardiovascular Exam: Irregular Rhythm - GI/Abdominal Exam GI & Abdominal Exam: Soft - Rectal Exam Rectal Exam: Deferred - Extremities Exam Extremities exam: Negative for: pedal edema - Neurological Exam Neurological exam: Altered (unresponsive) - Skin Skin Exam: Dry, Intact Results - Vital Signs Recent Vital Signs: Last Vital Signs Temp 95.5 F L 07/16/17 09:50 Pulse 50 L 07/16/17 11:08 Resp 22 07/16/17 11:08 BP 95/42 L 07/16/17 11:08 Pulse Ox 100 07/16/17 11:50 - Labs Result Diagrams: 07/16/17 10:05 07/16/17 10:05 Labs: Laboratory Results - last 24 hr 07/16/17 07/16/17 07/16/17 09:52 10:04 10:05 WBC RBC Hgb Hct MCV MCH MCHC RDW Plt Count MPV Neut % (Auto) Lymph % (Auto) [place] % (Auto) Eos % (Auto) Baso % (Auto) Neut # Lymph # [place] # Eos # Baso # PT INR APTT D-Dimer, Quantitative pCO2 79 H* pO2 527 H HCO3 15.1 L ABG pH 6.99 L* ABG Total CO2 21.4 L ABG O2 Saturation 99.7 H ABG Base Excess -12.6 L Carrillo Test Yes ABG Potassium 6.3 H* A-a O2 Difference 87.0 Sodium 133.0 Chloride 99.0 Glucose 280 H Lactate 10.2 H* Vent Mode Prvc/ac Mechanical Rate 14 FiO2 100.0 Tidal Volume 500 PEEP 5 Blood Gas Comments Prvc/ac14/vt500/100%/+5peep Crit Value Called To Dr.alex josephine toure Crit Value Called By Rowan Crit Value Read Back Y Blood Gas Notified Time 1024 POC Glucose (mg/dL) 235 H Troponin I 0.0550 NT-Pro-B Natriuret Pep 6720 H Arterial Blood Potassium 6.3 H* Urine Color Urine Clarity Urine pH Ur Specific [place] Urine Protein Urine Glucose (UA) Urine Ketones Urine Blood Urine Nitrate Urine Bilirubin Urine Urobilinogen Ur Leukocyte Esterase Urine RBC (Auto) Urine Microscopic WBC Digoxin 07/16/17 07/16/17 07/16/17 10:05 10:05 10:05 WBC 28.5 H D RBC 3.86 Hgb 9.3 L Hct 32.4 L MCV 83.9 D MCH 24.1 L MCHC 28.7 L RDW 17.5 H Plt Count 349 MPV 8.2 Neut % (Auto) 74.1 Lymph % (Auto) 20.5 [place] % (Auto) 4.1 Eos % (Auto) 0.3 Baso % (Auto) 1.0 Neut # 21.1 H Lymph # 5.9 H [place] # 1.2 H Eos # 0.1 Baso # 0.3 H PT 14.0 H INR 1.3 H APTT 59.9 H D-Dimer, Quantitative 5952 H pCO2 pO2 HCO3 ABG pH ABG Total CO2 ABG O2 Saturation ABG Base Excess Carr[place] Test ABG Potassium A-a O2 Difference Sodium Chloride Glucose Lactate Vent Mode Mechanical Rate FiO2 Tidal Volume PEEP Blood Gas Comments Crit Value Called To Crit Value Called By Crit Value Read Back Blood Gas Notified Time POC Glucose (mg/dL) Troponin I NT-Pro-B Natriuret Pep Arterial Blood Potassium Urine Color Urine Clarity Urine pH Ur Specific [place] Urine Protein Urine Glucose (UA) Urine Ketones Urine Blood Urine Nitrate Urine Bilirubin Urine Urobilinogen Ur Leukocyte Esterase Urine RBC (Auto) Urine Microscopic WBC Digoxin 1.6 07/16/17 10:10 WBC RBC Hgb Hct MCV MCH MCHC RDW Plt Count MPV Neut % (Auto) Lymph % (Auto) [place] % (Auto) Eos % (Auto) Baso % (Auto) Neut # Lymph # [place] # Eos # Baso # PT INR APTT D-Dimer, Quantitative pCO2 pO2 HCO3 ABG pH ABG Total CO2 ABG O2 Saturation ABG Base Excess [place] Test ABG Potassium A-a O2 Difference Sodium Chloride Glucose Lactate Vent Mode Mechanical Rate FiO2 Tidal Volume PEEP Blood Gas Comments Crit Value Called To Crit Value Called By Crit Value Read Back Blood Gas Notified Time POC Glucose (mg/dL) Troponin I NT-Pro-B Natriuret Pep Arterial Blood Potassium Urine Color Yellow Urine Clarity Clear Urine pH 5.0 Ur Specific Waterproof 1.015 Urine Protein 100 Urine Glucose (UA) Neg Urine Ketones Negative Urine Blood Negative Urine Nitrate Negative Urine Bilirubin Negative Urine Urobilinogen 0.2-1.0 Ur Leukocyte Esterase Neg Urine RBC (Auto) 1 Urine Microscopic WBC < 1 Digoxin Assessment & Plan - Assessment and Plan (Free Text) Assessment: 87 yo female with history of COPD with home O2, AFib, CHF, HTN and CKD brought in by EMS after she was found unresponsive by relative. CPR was done on site and patient was intubated. 1. S/P Cardiac Arrest both pupils were dilated and non-reactive patient probably brain family elected to place her on DNR maintain ventilator setting continue Zithromax and Zosyn
[2017-07-16] MEDS ORDERED: Insulin Regular 100 units/ml IV STA (12:06)
--- NOTE | 2017-07-16 12:32 | CP.PCM.CON ---
History of Present Illness - History of Present Illness History of Present Illness: THE PATIENT IS AN 87 YEAR OLD FEMALE WITH A HISTORY OF SEVERE COPD, LUNG CA, CAD WITH CARDIOMYOPATHY, CHRONIC ATRIAL FIBRILLATION, HYPERTENSION, ANXIETY AND DEPRESSION. SHE HAD A RECENT URI AND WAS PLACED ON ANTIBIOTICS AN OUT PATIENT. ACCORDING TO HER SON SHE HAD COUGH WITH PHLEGM AND HER CHRONIC SOB BUT NO CHEST PAIN. HE SPOKE TO HER WHILE SHE WAS IN BED THIS MORNING AND HE THEN PREPARED BREAKFAST AND WHEN HE WENT TO GET HER UP FROM BED TO EAT BREAKFAST AT LEAST 20 MINUTES LATER SHE WASN'T BREATHING. HE CALLED EMS AND SHE WAS ASYSTOLIC UPON THEIR ARRIVAL. CPR WAS STARTED AND SHE WAS GIVEN EPINEPHRINE IN THE FIELD AND ATROPINE AND DOPAMINE WERE STARTED HERE. ANTIBIOTICS WERE ALSO GIVEN. SHE WAS INTUBATED AND PLACED ON MV. SHE WAS ADMITTED TO THE ICU. THE FAMILY DECIDED TO MAKE HER A DNR. Past Patient History - Infectious Disease Hx of Infectious Diseases: None - Tetanus Immunizations Tetanus Immunization: Unknown - Past Medical History & Family History Past Medical History?: Yes - Past Social History Smoking Status: Former Smoker - CARDIAC Hx Atrial Fibrillation: Yes Hx Cardia Arrhythmia: Yes Hx Congestive Heart Failure: Yes Hx Hypercholesterolemia: Yes Hx Hypertension: Yes Hx Mitral Valve Prolapse: No Hx Pacemaker: No Hx Peripheral Edema: No - PULMONARY Hx Asthma: No Hx Bronchitis: No Hx Chronic Obstructive Pulmonary Disease (COPD): Yes Hx Emphysema: No Hx Pneumonia: Yes Hx Pulmonary Embolism: No Hx Sleep Apnea: Yes - NEUROLOGICAL Hx Neurological Disorder: No - HEENT Hx HEENT Problems: Yes - RENAL Hx Chronic Kidney Disease: Yes (CKD stage 3) - ENDOCRINE/METABOLIC Hx Hypothyroidism: No - HEMATOLOGICAL/ONCOLOGICAL Hx Anemia: Yes Hx Human Immunodeficiency Virus (HIV): No - INTEGUMENTARY Hx Dermatological Problems: No - MUSCULOSKELETAL/RHEUMATOLOGICAL Hx Arthritis: Yes Hx Osteoporosis: Yes Hx Rheumatoid Arthritis: No - GASTROINTESTINAL Hx Diverticulitis: Yes Hx Gastritis: Yes - GENITOURINARY/GYNECOLOGICAL Hx Genitourinary Disorders: No - PSYCHIATRIC Hx Anxiety: Yes - SURGICAL HISTORY Hx Appendectomy: Yes - ANESTHESIA Hx Anesthesia: Yes Hx Anesthesia Reactions: No Hx Malignant Hyperthermia: No Meds Allergies/Adverse Reactions: Allergies Allergy/AdvReac Type Severity Reaction Status Date / Time No Known Allergies Allergy Verified 07/30/16 16:17 - Medications Medications: Current Medications Levofloxacin/Dextrose (Levaquin 750mg) 750 mg in 150 mls @ 100 mls/hr IVPB DAILY JAQUI PRN Reason: Protocol Last Admin: 07/16/17 11:00 Dose: 100 mls/hr Physical Exam - Respiratory Exam Respiratory Exam: Rales, Rhonchi - Cardiovascular Exam Cardiovascular Exam: Irregular Rhythm, +S1, +S2 - Extremities Exam Additional comments: TRACE EDEMA BILAT - Neurological Exam Additional comments: PUPILS FIXED AND DILATED NO RESPONSE TO PAIN FULL STIMULI - Additional Findings Additional findings: EKG ATRIAL FIBRILLATION WITH SLOW RATE, RBBB, NO ACUTE ST ELEVATIONS FIRST TROPONIN NORMAL CXR REPORT NOTED PBNP ELEVATED WBC 28L ABGS PH 6.9, CO2 79, LACTATE 10 Results - Vital Signs Recent Vital Signs: Last Vital Signs Temp 95.4 F L 07/16/17 11:52 Pulse 86 07/16/17 11:52 Resp 19 07/16/17 11:52 BP 101/59 L 07/16/17 11:52 Pulse Ox 100 07/16/17 11:55 - Labs Result Diagrams: 07/16/17 10:05 07/16/17 10:05 Labs: Laboratory Results - last 24 hr 07/16/17 07/16/17 07/16/17 09:52 10:04 10:05 WBC RBC Hgb Hct MCV MCH MCHC RDW Plt Count MPV Neut % (Auto) Lymph % (Auto) [place] % (Auto) Eos % (Auto) Baso % (Auto) Neut # Lymph # [place] # Eos # Baso # PT INR APTT D-Dimer, Quantitative pCO2 79 H* pO2 527 H HCO3 15.1 L ABG pH 6.99 L* ABG Total CO2 21.4 L ABG O2 Saturation 99.7 H ABG Base Excess -12.6 L Carrillo Test Yes ABG Potassium 6.3 H* A-a O2 Difference 87.0 Sodium 133.0 137 Chloride 99.0 97 L Glucose 280 H Lactate 10.2 H* Vent Mode Prvc/ac Mechanical Rate 14 FiO2 100.0 Tidal Volume 500 PEEP 5 Blood Gas Comments Prvc/ac14/vt500/100%/+5peep Crit Value Called To Dr.alex josephine toure Crit Value Called By Rowan Munson Value Read Back Y Blood Gas Notified Time 1024 Potassium 6.5 H* D Carbon Dioxide 23 Anion Gap 24 H BUN 22 H Creatinine 1.3 H Est GFR ( Amer) 47 Est GFR (Non-Af Amer) 39 POC Glucose (mg/dL) 235 H Random Glucose 221 H Calcium 8.5 Magnesium 2.0 Total Bilirubin 0.7 AST 212 H D ALT 172 H D Alkaline Phosphatase 109 Troponin I 0.0550 NT-Pro-B Natriuret Pep 6720 H Total Protein 5.4 L Albumin 2.8 L D Globulin 2.6 Albumin/Globulin Ratio 1.1 Lipase 67 Arterial Blood Potassium 6.3 H* Urine Color Urine Clarity Urine pH Ur Specific [place] Urine Protein Urine Glucose (UA) Urine Ketones Urine Blood Urine Nitrate Urine Bilirubin Urine Urobilinogen Ur Leukocyte Esterase Urine RBC (Auto) Urine Microscopic WBC Digoxin 07/16/17 07/16/17 07/16/17 10:05 10:05 10:05 WBC 28.5 H D RBC 3.86 Hgb 9.3 L Hct 32.4 L MCV 83.9 D MCH 24.1 L MCHC 28.7 L RDW 17.5 H Plt Count 349 MPV 8.2 Neut % (Auto) 74.1 Lymph % (Auto) 20.5 [place] % (Auto) 4.1 Eos % (Auto) 0.3 Baso % (Auto) 1.0 Neut # 21.1 H Lymph # 5.9 H [place] # 1.2 H Eos # 0.1 Baso # 0.3 H PT 14.0 H INR 1.3 H APTT 59.9 H D-Dimer, Quantitative 5952 H pCO2 pO2 HCO3 ABG pH ABG Total CO2 ABG O2 Saturation ABG Base Excess Carrillo Test ABG Potassium A-a O2 Difference Sodium Chloride Glucose Lactate Vent Mode Mechanical Rate FiO2 Tidal Volume PEEP Blood Gas Comments Crit Value Called To Crit Value Called By Crit Value Read Back Blood Gas Notified Time Potassium Carbon Dioxide Anion Gap BUN Creatinine Est GFR ( Amer) Est GFR (Non-Af Amer) POC Glucose (mg/dL) Random Glucose Calcium Magnesium Total Bilirubin AST ALT Alkaline Phosphatase Troponin I NT-Pro-B Natriuret Pep Total Protein Albumin Globulin Albumin/Globulin Ratio Lipase Arterial Blood Potassium Urine Color Urine Clarity Urine pH Ur Specific [place] Urine Protein Urine Glucose (UA) Urine Ketones Urine Blood Urine Nitrate Urine Bilirubin Urine Urobilinogen Ur Leukocyte Esterase Urine RBC (Auto) Urine Microscopic WBC Digoxin 1.6 07/16/17 10:10 WBC RBC Hgb Hct MCV MCH MCHC RDW Plt Count MPV Neut % (Auto) Lymph % (Auto) [place] % (Auto) Eos % (Auto) Baso % (Auto) Neut # Lymph # [place] # Eos # Baso # PT INR APTT D-Dimer, Quantitative pCO2 pO2 HCO3 ABG pH ABG Total CO2 ABG O2 Saturation ABG Base Excess [place] Test ABG Potassium A-a O2 Difference Sodium Chloride Glucose Lactate Vent Mode Mechanical Rate FiO2 Tidal Volume PEEP Blood Gas Comments Crit Value Called To Crit Value Called By Crit Value Read Back Blood Gas Notified Time Potassium Carbon Dioxide Anion Gap BUN Creatinine Est GFR ( Amer) Est GFR (Non-Af Amer) POC Glucose (mg/dL) Random Glucose Calcium Magnesium Total Bilirubin AST ALT Alkaline Phosphatase Troponin I NT-Pro-B Natriuret Pep Total Protein Albumin Globulin Albumin/Globulin Ratio Lipase Arterial Blood Potassium Urine Color Yellow Urine Clarity Clear Urine pH 5.0 Ur Specific [place] 1.015 Urine Protein 100 Urine Glucose (UA) Neg Urine Ketones Negative Urine Blood Negative Urine Nitrate Negative Urine Bilirubin Negative Urine Urobilinogen 0.2-1.0 Ur Leukocyte Esterase Neg Urine RBC (Auto) 1 Urine Microscopic WBC < 1 Digoxin Assessment & Plan - Assessment and Plan (Free Text) Assessment: CARDIOPULMONARY ARREST AT HOME WITH ASYSTOLE WITH PROBABLE ANOXIC ENCEPHALOPATHY CAD HISTORY COPD SEPSIS PROGNOSIS IS VERY POOR Plan: THE PATIENT WAS GIVEN IV EPINEPHRINE AND ATROPINE, IV FLUIDS, ANTIBIOTICS AND PLACED ON MV IN THE ER SHE WAS ADMITTED TO THE ICU SHE WAS MADE A DNR BY THE FAMILY BECAUSE OF HER HYPOTENSION AND BRADYCARDIA SHE OF COURSE WAS NOT GIVEN ANYTHING AT THE PRESENT TIME THAT COULD WORSEN THOSE PROBLEMS SUCH NITRATES, BETA BLOCKERS, DIGOXIN OR DIURETICS ASPIRIN WAS NOT GIVEN CAT SCAN OF THE HEAD WAS PENDING PULMONARY TO SEE PATIENT WAS DISCUSSED WITH THE FAMILY, ER PHYSICIAN, HOSPITALIST, ASSOCIATE PROFESSOR OF MEDIA ARTS AND NURSING STAFF
--- NOTE | 2017-07-16 13:10 | CT ---
PROCEDURE: CT HEAD WITHOUT CONTRAST. HISTORY: AMS COMPARISON: Comparison made with prior CT scan brain 11/08/2015. TECHNIQUE: Axial computed tomography images were obtained through the head/brain without intravenous contrast. Radiation dose: Total exam DLP = 1903.63 mGy-cm. This CT exam was performed using one or more of the following dose reduction techniques: Automated exposure control, adjustment of the mA and/or kV according to patient size, and/or use of iterative reconstruction technique. FINDINGS: HEMORRHAGE: No acute parenchymal, subarachnoid or extra-axial hemorrhage. BRAIN: There is loss of the corticomedullary junction with homogeneous appearance of the brain parenchyma. Findings consistent with diffuse cerebral edema and sequela of significant hypoxic/anoxia. Additionally there appear to be early developing more discrete areas of low attenuation both basal nuclei. Clinical correlation recommended. Vascular calcifications are present. Note these findings were discussed with Dr. Hernandez at approximately 1 p.m. with written down and read back verification. VENTRICLES: No obstructive hydrocephalus. CALVARIUM: No acute calvarial abnormalities PARANASAL SINUSES: Prominent adenoids and/or with collected secretions in the posterior nasopharynx Very tiny early fluid levels right maxillary antrum and right chamber sphenoid sinus. . There is also mucosal thickening within several ethmoid air cells. MASTOID AIR CELLS: Unremarkable as visualized. No inflammatory changes. OTHER FINDINGS: Incidental note made of in situ ETT. Changes of bilateral cataract surgery again noted. . IMPRESSION: Findings consistent with diffuse cerebral edema secondary to hypoxia/anoxia. Additionally there appear to be early developing more discrete areas of low attenuation both basal nuclei. Emergency room physician aware these findings.
--- NOTE | 2017-07-16 13:39 | CT ---
PROCEDURE: CT Chest with contrast (Pulmonary Angiogram) HISTORY: Lung carcinoma. Respiratory arrest. Rule out PE. COMPARISON: Correlation made with chest radiograph 07/16/2017 TECHNIQUE: Axial computed tomography images were obtained of the chest in the pulmonary arterial phase of enhancement. Coronal and sagittal reformatted images were created and reviewed. Intravenous contrast dose: 99 cc Visipaque 320 kody Radiation dose: Total exam DLP = 335.31 MGy-cm. This CT exam was performed using one or more of the following dose reduction techniques: Automated exposure control, adjustment of the mA and/or kV according to patient size, and/or use of iterative reconstruction technique. FINDINGS: In situ endotracheal tube in good position with tip above the angela. . PULMONARY ARTERIES: Unremarkable. No pulmonary embolism. AORTA: No acute findings. No thoracic aortic aneurysm. LUNGS: Bilateral effusions right larger than left. There is also mild biapical pleural thickening left-sided which exhibits a few calcifications. Underlying diffuse interstitial fibrosis more severely affecting the upper lung murray. There are patchy nodular infiltrates seen in the right lower lobe and right middle lobe and to a lesser degree left lingular region. . Spiculated mass density left upper lobe consistent with this patient's history of lung carcinoma. This lesion measures approximately 2.0 x 1.5 6 x 1.46 cm PLEURAL SPACES: There is a small left sided anterior and basilar pneumothorax HEART: Heart is enlarged with left ventricular hypertrophy. No significant pericardial effusion. Descending thoracic aorta measures approximately 2.9 cm with questionable small ulcerated plaque in the posterior margin of the descending aorta best seen on sagittal image number [id number]. LYMPH NODES: No lymphadenopathy. BONES, CHEST WALL: Unremarkable. No fracture or destructive lesion OTHER FINDINGS: There appears to be wall thickening of the esophagus proximally and just below the level of the angela. Clinical correlation recommended to exclude esophagitis or other intrinsic/invasive wall lesion such as esophageal carcinoma. IMPRESSION: No evidence of acute central pulmonary embolus. Small left-sided anterior and basilar pneumothorax. Extensive interstitial fibrosis upper lobe predominance with bilateral effusions right larger than left. Biapical pleural thickening with left side of which is associate with a few scattered calcifications. Spiculated mass of left upper lobe consistent with primary tumor Cardiomegaly with LVH. There is mild dilatation of the descending thoracic aorta with questionable ulcerated plaque as detailed above. Wall thickening of the proximal and mid esophagus ; clinical correlation recommended to exclude esophagitis or other intrinsic/invasive wall lesion such as esophageal carcinoma.
[2017-07-16] MEDS ORDERED: Sodium Chloride 0.9% 1,000 ML IV SCH (19:45)
[2017-07-17 01:16] VITALS: RESP 20
[2017-07-17] MEDS ORDERED: DOPamine 400mg/250ml D5W 400 MG/250 ML BAG IV ONE (02:44)
[2017-07-17 05:01] LABS: ABG ALLEN TEST YES; ARTERIAL BLOOD GAS HCO3 21.1 mmol/L (21-28); ARTERIAL BLOOD GAS HEMOGLOBIN 11.2 g/dL (11.7-17.4); ARTERIAL BLOOD GAS O2 SAT 100.1 % (95-98); ARTERIAL BLOOD GAS PCO2 45 mm/Hg (35-45); ARTERIAL BLOOD GAS PH 7.29 (7.35-7.45); ARTERIAL BLOOD GAS PO2 257 mm/Hg (80-100)
--- NOTE | 2017-07-17 05:31 | CP.PCM.PRO ---
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 [id number]
--- NOTE | 2017-07-17 05:36 | CP.PCM.DIS ---
Provider - Provider Date of Admission: 07/16/17 11:23 Attending physician: Rusty Spicer MD Time Spent in preparation of Discharge (in minutes): 30 Diagnosis - Discharge Diagnosis (1) COPD exacerbation Status: Acute Hospital Course - Lab Results Lab Results: Most Recent Lab Values WBC 28.5 K/uL (4.8-10.8) H D 07/16/17 10:05 RBC 3.86 Mil/uL (3.80-5.20) 07/16/17 10:05 Hgb 9.3 g/dL (12.0-16.0) L 07/16/17 10:05 Hct 32.4 % (34.0-47.0) L 07/16/17 10:05 MCV 83.9 fl (81.0-99.0) D 07/16/17 10:05 MCH 24.1 pg (27.0-31.0) L 07/16/17 10:05 MCHC 28.7 g/dL (33.0-37.0) L 07/16/17 10:05 RDW 17.5 % (11.5-14.5) H 07/16/17 10:05 Plt Count 349 K/uL (130-400) 07/16/17 10:05 MPV 8.2 fl (7.2-11.7) 07/16/17 10:05 Neut % (Auto) 74.1 % (50.0-75.0) 07/16/17 10:05 Lymph % (Auto) 20.5 % (20.0-40.0) 07/16/17 10:05 [place] % (Auto) 4.1 % (0.0-10.0) 07/16/17 10:05 Eos % (Auto) 0.3 % (0.0-4.0) 07/16/17 10:05 Baso % (Auto) 1.0 % (0.0-2.0) 07/16/17 10:05 Neut # 21.1 K/uL (1.8-7.0) H 07/16/17 10:05 Lymph # 5.9 K/uL (1.0-4.3) H 07/16/17 10:05 [place] # 1.2 K/uL (0.0-0.8) H 07/16/17 10:05 Eos # 0.1 K/uL (0.0-0.7) 07/16/17 10:05 Baso # 0.3 K/uL (0.0-0.2) H 07/16/17 10:05 PT 14.0 Seconds (9.8-13.1) H 07/16/17 10:05 INR 1.3 (0.9-1.2) H 07/16/17 10:05 APTT 59.9 Seconds (25.6-37.1) H 07/16/17 10:05 D-Dimer, Quantitative 5952 ng/mlDDU (0-230) H 07/16/17 10:05 pCO2 45 mm/Hg (35-45) 07/17/17 04:34 pO2 257 mm/Hg (80-100) H 07/17/17 04:34 HCO3 21.1 mmol/L (21-28) 07/17/17 04:34 ABG pH 7.29 (7.35-7.45) L 07/17/17 04:34 ABG Total CO2 23.0 mmol/L (22-28) 07/17/17 04:34 ABG O2 Saturation 100.1 % (95-98) H 07/17/17 04:34 ABG O2 Content 16.0 ML/dL (15-23) 07/17/17 04:34 ABG Base Excess -4.9 mmol/L (-2.0-3.0) L 07/17/17 04:34 ABG Hemoglobin 11.2 g/dL (11.7-17.4) L 07/17/17 04:34 ABG Carboxyhemoglobin 1.0 % (0.5-1.5) 07/17/17 04:34 POC ABG HHb (Measured) -0.1 % (0.0-5.0) L 07/17/17 04:34 ABG Methemoglobin 1.4 % (0.0-3.0) 07/17/17 04:34 ABG O2 Capacity 16.0 mL/dL (16-24) 07/17/17 04:34 Carrillo Test Yes 07/17/17 04:34 ABG Potassium 6.3 mmol/L (3.6-5.2) H* 07/16/17 10:04 A-a O2 Difference 115.0 mm/Hg 07/17/17 04:34 Hgb O2 Saturation 97.8 % (95.0-98.0) 07/17/17 04:34 Sodium 133.0 mmol/L (132-148) 07/16/17 10:04 Chloride 99.0 mmol/L (98-107) 07/16/17 10:04 Glucose 280 mg/dL (65-105) H 07/16/17 10:04 Lactate 10.2 mmol/L (0.7-2.1) H* 07/16/17 10:04 Vent Mode A/c 07/17/17 04:34 Mechanical Rate 20 07/17/17 04:34 FiO2 60.0 % 07/17/17 04:34 Tidal Volume 500 07/17/17 04:34 PEEP 5 07/17/17 04:34 Blood Gas Comments Prvc/ac14/vt500/100%/+5peep 07/16/17 10:04 Crit Value Called To Dr.alex josephine toure 07/16/17 10:04 Crit Value Called By Rowan 07/16/17 10:04 Crit Value Read Back Y 07/16/17 10:04 Blood Gas Notified Time 1024 07/16/17 10:04 Sodium 137 mmol/l (132-148) 07/16/17 10:05 Potassium 6.5 MMOL/L (3.6-5.0) H* D 07/16/17 10:05 Chloride 97 mmol/L (98-107) L 07/16/17 10:05 Carbon Dioxide 23 mmol/L (22-30) 07/16/17 10:05 Anion Gap 24 (10-20) H 07/16/17 10:05 BUN 22 mg/dl (7-17) H 07/16/17 10:05 Creatinine 1.3 mg/dl (0.7-1.2) H 07/16/17 10:05 Est GFR ( Amer) 47 07/16/17 10:05 Est GFR (Non-Af Amer) 39 07/16/17 10:05 POC Glucose (mg/dL) 235 mg/dL (65-110) H 07/16/17 09:52 Random Glucose 221 mg/dL (65-105) H 07/16/17 10:05 Lactic Acid 4.0 MMOL/L (0.7-2.1) H 07/16/17 13:30 Calcium 8.5 mg/dL (8.4-10.2) 07/16/17 10:05 Magnesium 2.0 MG/DL (1.6-2.3) 07/16/17 10:05 Total Bilirubin 0.7 mg/dl (0.2-1.3) 07/16/17 10:05 AST 212 U/L (14-36) H D 07/16/17 10:05 ALT 172 U/L (9-52) H D 07/16/17 10:05 Alkaline Phosphatase 109 U/L (38-126) 07/16/17 10:05 Troponin I 0.0550 ng/mL (0.00-0.120) 07/16/17 10:05 NT-Pro-B Natriuret Pep 6720 pg/ml (0-900) H 07/16/17 10:05 Total Protein 5.4 G/DL (6.3-8.2) L 07/16/17 10:05 Albumin 2.8 g/dL (3.5-5.0) L D 07/16/17 10:05 Globulin 2.6 gm/dL (2.2-3.9) 07/16/17 10:05 Albumin/Globulin Ratio 1.1 (1.0-2.1) 07/16/17 10:05 Lipase 67 U/L (23-300) 07/16/17 10:05 Arterial Blood Potassium 6.3 mmol/L (3.6-5.2) H* 07/16/17 10:04 Urine Color Yellow (YELLOW) 07/16/17 10:10 Urine Clarity Clear (Clear) 07/16/17 10:10 Urine pH 5.0 (5.0-8.0) 07/16/17 10:10 Ur Specific [place] 1.015 (1.003-1.030) 07/16/17 10:10 Urine Protein 100 mg/dL (NEGATIVE) 07/16/17 10:10 Urine Glucose (UA) Neg mg/dL (Normal) 07/16/17 10:10 Urine Ketones Negative mg/dL (NEGATIVE) 07/16/17 10:10 Urine Blood Negative (NEGATIVE) 07/16/17 10:10 Urine Nitrate Negative (NEGATIVE) 07/16/17 10:10 Urine Bilirubin Negative (NEGATIVE) 07/16/17 10:10 Urine Urobilinogen 0.2-1.0 mg/dL (0.2-1.0) 07/16/17 10:10 Ur Leukocyte Esterase Neg Jennifer/uL (Negative) 07/16/17 10:10 Urine RBC (Auto) 1 /hpf (0-3) 07/16/17 10:10 Urine Microscopic WBC < 1 /hpf (0-5) 07/16/17 10:10 Digoxin 1.6 ng/mL (0.8-2.0) 07/16/17 10:05 - Hospital Course Hospital Course: 87 yo female with history of COPD with home O2, AFib, CHF, HTN and CKD brought in by EMS after she was found unresponsive by relative. CPR was done on site and patient was intubated. As per relative who lives with her, patient was lying in bed when the relative left her to make coffee. When she came back into the room she noted the patient not breathing, so she called 911. Patient was resuscitated with ROSC. She was placed on dopamine gtt and on ventilator. Case was discussed with family, and given poor prognosis, patient was made DNR. No further extensive intervention was performed other than continuing mechanical ventilation and dopamine gtt. This AM, patient became asystolic and had no palpable pulse. Patient was determined to have , time of 507 AM. Given that patient less than 24 hours after admission to hospital, [place] was contacted, and we are awaiting response. Discharge Exam - Head Exam Head Exam: ATRAUMATIC, NORMAL INSPECTION, NORMOCEPHALIC - Eye Exam Additional comments: Fixed, dilated - Respiratory Exam Additional comments: absent bs - Cardiovascular Exam Additional comments: no heart tones or pulses - Neurological Exam Additional comments: not responsive, no spontaneous movement Discharge Plan - Follow Up Plan Condition:
[2017-07-17 05:53] VITALS: TEMP 99; O2SAT 91
[2017-07-17 05:56] VITALS: BP 55/38; PULSE 64
--- NOTE | 2017-07-17 11:53 | RAD ---
HISTORY: ETT placement COMPARISON: Comparison made with chest radiograph and CTA of the chest both dated 07/16/2017. FINDINGS: Re- demonstrated is in situ ETT, tip of which lies approximately 5.2 cm above angela. LUNGS: Hyperinflation with diffuse interstitial fibrosis. Patchy nodular infiltrates located in the right middle and lower lobes and to a lesser degree left lingular region is less well seen compared to high-resolution CT chest. PLEURA: Left anterior and basilar pneumothorax appears to have diminished slightly. CARDIOVASCULAR: Normal. OSSEOUS STRUCTURES: No significant abnormalities. VISUALIZED UPPER ABDOMEN: Normal. OTHER FINDINGS: None. IMPRESSION: In situ ETT as above. Hyperinflation with diffuse interstitial fibrosis. Patchy nodular infiltrates located in the right middle and lower lobes and to a lesser degree left lingular region is less well seen compared to high-resolution CT chest. Left anterior and basilar pneumothorax appears to have diminished slightly.
== END 2017-07-17 05:07 | DRG 208 ==
LOC: H.ER 09:48 → H.ERHOLD 11:23 → H.ICU/CCU 13:06
PROC: 0BH17EZ Insertion of Endotracheal Airway into Trachea, Via Natural or Artificial Opening (ICD-10-PCS; principal; 2017-07-16)
PROC: 5A1935Z Respiratory Ventilation, Less than 24 Consecutive Hours (ICD-10-PCS; 2017-07-16)
DX: J96.02 Acute respiratory failure with hypercapnia (principal); I46.9 Cardiac arrest, cause unspecified; G93.1 Anoxic brain damage, not elsewhere classified; J44.1 Chronic obstructive pulmonary disease with (acute) exacerbation; I42.9 Cardiomyopathy, unspecified; I13.0 Hypertensive heart and chronic kidney disease with heart failure and stage 1 through stage 4 chronic kidney disease, or unspecified chronic kidney disease; I50.9 Heart failure, unspecified; I48.2 Chronic atrial fibrillation; Z87.01 Personal history of pneumonia (recurrent); E78.00 Pure hypercholesterolemia, unspecified; G47.30 Sleep apnea, unspecified; I25.10 Atherosclerotic heart disease of native coronary artery without angina pectoris; M81.0 Age-related osteoporosis without current pathological fracture; N18.3 Chronic kidney disease, stage 3 (moderate); Z66 Do not resuscitate; Z79.82 Long term (current) use of aspirin; Z79.899 Other long term (current) drug therapy; Z85.118 Personal history of other malignant neoplasm of bronchus and lung; Z87.891 Personal history of nicotine dependence; Z90.49 Acquired absence of other specified parts of digestive tract; Z99.81 Dependence on supplemental oxygen; D64.9 Anemia, unspecified; F32.9 Major depressive disorder, single episode, unspecified; F41.9 Anxiety disorder, unspecified; K29.70 Gastritis, unspecified, without bleeding; M19.90 Unspecified osteoarthritis, unspecified site